=== PATIENT | male | born 1955 | race Caucasian/White ===

== ENCOUNTER → 2016-07-28 | Outpatient (CLI) | payer MEDICARE ==
[~2016-07-28] MED LIST: /ESCI10TA OR; ADVI200C PO; ALBU83IN NEB; ALBUTEROL INH; ALPR2TAB3 OR; AMLO5TAB OR; AMLO5TAB2 PO; ATEN50TA2 PO; ATROVENT0.02% INH; BENA20TA PO; CLAR5CHW PO; IBUP200C PO; IBUP600T OR; IPRASOL4 IN; KLOR10TA OR; LISI10TA4 OR; OMEP20TA7 OR; PROA1AER IN; PROAIR INH; PULM0.5S IN; SENN1TAB4 PO; SYMB16INH INH; TRAM50TA2 OR; TRAM50TA2 PO; VICO5TAB OR; VITA200016 PO; [UNRECOGNIZED DRUG - CODE] OR; [UNRECOGNIZED DRUG - CODE] PO; alleve PO
--- NOTE | 2016-08-13 01:33 | ECWPNPC ---
PATIENT NAME: CARLEEN JARRETT : 1955 GENDER: MALE VISIT DATE: 07/28/2016 DISCHARGE DATE: 07/28/16 1229 VISIT LOCKED DATE TIME: PHYSICIAN: TUSHAR AGUILERA RESOURCE: TUSHAR AGUILERA REASON FOR APPOINTMENT 1. HIP, POST PROCEDURE HISTORY OF PRESENT ILLNESS HISTORY OF PRESENT ILLNESS: PAIN THE PATIENT DESCRIBES THE PAIN... FALL RISK SCREENING: SCREENING :NO FALLS IN THE PAST YEAR TODAY'S VISIT: NOTES: HAD LEFT HIP INJECTION 07/02/16 WITH EXCELLANT RESULTS. PAIN DECREASED FROM6-8/10 TO 0/10 AND THIS LASTED FOR OVER 2 WEEKS. IS ASKING FOR REPEAT INJECTION.RATES PAIN LEVEL TODAY 7-8/10. PAIN IS CENTERED IN LOW BACK AND LEFT SACRUM TO HIP. . CURRENT MEDICATIONS TAKING TYLENOL EXTRA STRENGTH 500 MG TABLET 2 TABLETS NEEDED ORALLY EVERY 4- 6 HRS NEEDED TAKING TRAMADOL HCL 50 MG TABLET 1-2 ORALLY EVERY 8 HRSMDD 4, NOTES: 04-01-16799 TAKING TERBUTALINE SULFATE 5 MG TABLET 1 TABLET ORALLY EVERY 6 HRS, NOTES: 04-01-16799 TAKING OXYGEN KIT 2.0 LITERS ORALLY DAILY, NOTES: NONE TAKING IPRATROPIUM BROMIDE 0.02 % SOLUTION ONE APPLICATION INHALATION VIA NEBULIZER, NOTES: 11/02/15 0800 TAKING CANE MISCELLANEOUS _ DAILY, NOTES: HAS WITH HIM TAKING WALKER GLIDE WHEELS MISCELLANEOUS _ DAILY, NOTES: NONE TAKING SYMBICORT 160-4.5 MCG/ACT AEROSOL 2 PUFFS INHALATION TWICE A DAY, NOTES: 04-01-16799 TAKING PROAIR HFA 108 (90 BASE) MCG/ACT AEROSOL SOLUTION 2 PUFFS NEEDED INHALATION QID PRN, NOTES: 04-01-16799 TAKING FLOMAX 0.4 MG CAPSULE 1 CAPSULE 30 MINUTES AFTER THE SAME MEAL EACH DAY ORALLY ONCE A DAY, NOTES: NONE TAKING OMEPRAZOLE 40 MG CAPSULE DELAYED RELEASE 1 CAPSULE ORALLY TWICE DAILY, NOTES: 04-01-16799 TAKING SENNA-LAX 8.6 MG TABLET 1 TABLET ORALLY ONCE A DAY NEEDED, NOTES: 04-01-16799 TAKING BENAZEPRIL HCL 20 MG TABLET 1 TABLET ORALLY ONCE A DAY, NOTES: 04-01-16799 TAKING AMLODIPINE BESYLATE 5 MG TABLET 1 TABLET ORALLY ONCE A DAY, NOTES: 9-13-16 0800 TAKING RANITIDINE HCL 300 MG CAPSULE 1 CAPSULE AT BEDTIME ORALLY TWICE A DAY, NOTES: 04-01-16 2100 TAKING VITAMIN D 1000 UNIT TABLET 1 TABLET ORALLY ONCE A DAY TAKING XANAX 1 MG TABLET 1 TABLET ORALLY TWICE A DAY NOT-TAKING OXYCODONE HCL 5 MG TABLET 1 TABLET ORALLY EVERY 8 HRS MEDICATION LIST REVIEWED AND RECONCILED WITH THE PATIENT PAST MEDICAL HISTORY GERD COPD-04/14/2014 FEV1 2.3L (66%)/RATIO 78%//EMPHYSEMA RML SCARRING BY 01/2014 CT CHEST 06/23 TRAUMATIC PNEUMOTHORAX HYPERTENSION-07/2009 NORMAL DOBUTAMINE NUCLEAR STRESS, LVEF 67%-SLICK CHRONIC VENTRAL INCISIONAL HERNIA WITH DEHISCENCE SINCE 03/2013 CHRONIC HEPATITIS C BLOOD TRANSFUSION, FAILED ? IFN RX IN 2002 IN [place] GENOTYPE 1A STAGE F1-2 L HIP OA OSTEOPOROSIS ANXIETY DISORDER-05/2004 NORMAL MRI BRAIN C IAC PROTOCOL H/O ? SBO 03/2013 S/P SURGICAL REPAIR BY DR. ZAIRE BARTH WITH SECONDARY CHRONIC VENTRAL HERNIA NICOTINE ADDICTION-10 CIGS DAILY FROM 36 YO (STARTED P ) HISTORY CHRONIC STEROID USE FOR ASTHMA WEANED OFF 2002-PATIENT ON PREDNISONE 50 TID X 25-30 YEARS POUND SECONDARY WEIGHT LOSS LUMBAR DJD S/P EPIDURALS 12/2010 [facility] L4 COMPRESSION BY 11/2013 CT CHEST LLL LUNG NODULES FIRST SEEN 05/25/2013 CT CHEST HISTORY OF ALCOHOL ABUSE HEPATITIS C LIVER ULTRASOUND SHOWS MIDLINE ABNORMALITY WITH HYPOECHOIC AREA OF FIBROSIS AND LIVER SHOWS NO MASSES ALLERGIES DUST: RASH: ALLERGY SOCIAL HISTORY GENERAL: TOBACCO USE ARE YOU A:NONSMOKER LEARNING BARRIERS / SPECIAL NEEDS ORIENTED TO PLAN OF CARE: PATIENT, PAIN MANAGEMENT PATIENT, ORIENTED TO PLAN OF CARE: PATIENT, PAIN MANAGEMENT PATIENT. NEW PATIENT PAIN DIARY TODAY'S VISITNOTES FROM 0-10, WHAT LEVEL IS YOUR PAIN TODAY?0 PAIN CLINIC PFS, CLERGY, PUBLIC HEALTH REFERRALS PFS REFERRAL NEEDED?NO CLERGY REFERRAL NEEDED?NO PUBLIC HEALTH REFERRAL NEEDED?NO WAS THE PROVIDER NOTIFIED OF ANY PERTINENT INFO?NO PFS REFERRAL NEEDED?NO CLERGY REFERRAL NEEDED?NO PUBLIC HEALTH REFERRAL NEEDED?NO WAS THE PROVIDER NOTIFIED OF ANY PERTINENT INFO?NO REVIEW OF SYSTEMS CONSTITUTIONAL: ANY CHANGE IN YOUR MEDICAL CONDITION? NO . CHILLS NO . FEVER NO . INFECTION: DO YOU HAVE NEW INFECTIONS? NO . DO YOU HAVE HISTORY OF MRSA? NO . MUSCULOSKELETAL: ANY NEW PATTERNS OF PAIN OR NUMBNESS? NO . GASTROENTEROLOGY: GENERAL STILL DEALING WITH ABDOMENAL WALL HERNIAS. NO CONSTIPATION/DIARRHEA, NO HEME . ANY NEW CHANGE IN BOWEL CONTROL? NO . GENITOURINARY: ANY NEW CHANGE IN BLADDER CONTROL? NO . IS THERE A CHANCE YOU COULD BE ? NO . HEMATOLOGY/LYMPH: DO YOU TAKE ANY BLOOD THINNERS? (FOR EXAMPLE- COUMADIN, PLAVIX, AGGRENOX, PLATEL, PRADAXA, OR XARELTO) NO . WHEN WAS YOUR LAST DOSE? DATE: TIME: . NEUROLOGY: HAVE YOU FALLEN IN THE PAST 6 MONTHS? NO . ANY NEW EXTREMITY NUMBNESS OR WEAKNESS? NO . CARDIOLOGY: DO YOU HAVE A PACEMAKER OR DEFIBRILLATOR? NO . RESPIRATORY: HAVE YOU BEEN SICK IN THE PAST WEEK? YES PNEUMONIA 2 WKS AGO-TX WITH ANTIBIOTICS . FEVER NO . FLU LIKE SYMPTOMS? NO . COUGH NO . INTEGUMENTARY: DO YOU HAVE ANY RASHES OR OPEN SORES? NO . ALLERGIC/IMMUNO: ARE YOU ALLERGIC TO SHELLFISH OR IV DYE? NO . ANY NEW ALLERGIES? NO . PSYCHIATRIC: DO YOU HAVE THOUGHTS OF HURTING YOURSELF OR SOMEONE ELSE? NO . ARE YOU ABUSED, NEGLECTED, OR IN AN UNSAFE ENVIRONMENT? NO . ENDOCRINOLOGY: ARE YOU DIABETIC? NO . OTHER: DO YOU NEED ANY PRESCRIPTIONS? YES TRAMADOL . IF YES, PLEASE LIST: ____ . ANY NEW PROBLEMS WITH YOUR MEDICATIONS? NO . WHEN DID YOU LAST EAT? ____ . WHEN DID YOU LAST DRINK? ____ . WHAT DID YOU LAST DRINK? ____ . NAME OF PERSON DRIVING YOU HOME? ____ . DO YOU HAVE ANY OTHER QUESTIONS OR CONCERNS NO . REVIEWED BY: PROVIDER: TUSHAR GARCIA . VITAL SIGNS WT 186.8 LBS, HT 69 IN, BMI 27.58 INDEX, BP 149/88 MM HG, HR 99 /MIN, RR 16 /MIN, TEMP 97.2 F, OXYGEN SAT % 96, NA INITIALS TL 1103, REVIEWED BY: MLF. EXAMINATION GENERAL EXAMINATION: PSYCHALERT , ORIENTED X 3 , APPROPRIATE MOOD AND AFFECT . LUNGS:CLEAR TO AUSCULTATION BILATERALLY. HEART:HEART RATE REGULAR. MUSCULOSKELETAL:TENDER OVER LEFT TROCANTER. SLOW TO RISE. PAIN WITH HIP FLEXION AT TROCANTER BUT NOT THE GROIN. MILD TENDERNESS OVER LUMBAR SPINOUS PROCESSES AND ACROSS THE SACRUM. FEW TRIGGER POINTS AND TIGHT FIEROUS BANDS NOTED OVER THE SACRUM. GAIT SLOW, ANTALGIC.. ASSESSMENTS LEFT HIP PAIN - M25.552 (PRIMARY) TREATMENT LEFT HIP PAIN REFILL TRAMADOL HCL TABLET, 50 MG, 1-2, ORALLY, EVERY 8 HRSMDD 4, 30 DAY(S), 120, REFILLS 0 ARTHROCENTESIS INJECTION LARGE JOINT ([id number])TUSHAR AGUILERA 07/28/2016 12:08:09 PM > LEFT HIP BURSA NOTES: CONTINUE CURRENT MEDS, FALLS CARE PLAN: 1. RECOMMEND REMOVING ALL THROW RUGS. 2. RECOMMEND NIGHT LIGHTS 3. RECOMMEND WEARING RUBBER SOLED SHOES AND TO NOT GO BAREFOOT. 4.. ADVISED TO CHANGE POSITION SLOWLY FROM SUPINE TO STANDING TO AVOID DIZZINESS. 5. ADVISED TO USE ASSISTIVE DEVICE SUCH CANE OR WALKER NEEDED., #128 - SCREENING BMI AND F/U PLAN IN : BMI ABOVE NORMAL TODAY. DISCUSSED WITH PATIENT NUTRITIONAL FOOD CHOICES TO ASSIST WITH WEIGHT LOSS. RECCOMMENDED REDUCING SALT, SUGAR, SODA INTAKE. RECOMMEND INCREASE ACTIVITY TO INCLUDE WALKING ON A REGULAR BASIS. PREVENTIVE MEDICINE PAIN CLINIC TEACHING: PROCEDURE TEACHING HIP INJECTION PROCEDURE REVIEWED WITH PT. PT VERBALIZES UNDERSTANDING.. PROCEDURE CODES FA211 ESTABILISHED PATIENT [facility] FACILITY CHARGE G8783 BP SCR PRFRM RCMDD DEFIND SCR INTVL G8730 PAIN ASSESS POS TOOL F/U PLAN DOC 3016F PT SCRND UNHLTHY [place] USE 1124F ACP DISCUSS-NO DSCNMKR DOCD 1036F TOBACCO NON-USER 0518F FALL PLAN OF CARE DOCD G8427 DOC MEDS VERIFIED W/PT OR RE G8417 BMI >=30 CALCUATE W/FOLLOWUP 3288F FALL RISK ASSESSMENT DOCD FOLLOW UP WITH ALONZO AFTER INJECTION (REASON: CHECK AUTH FOR LEFT HIP BURSA INJECTION) ELECTRONICALLY SIGNED BY TORY VILCHIS ON 08/11/2016 AT 10:31 AM EST DISCLAIMER : THIS IS A VISIT SUMMARY EXTRACTED FROM THE [employer] CHART. IT IS NOT A COPY OF THE [employer] PROGRESS NOTE. MTDD
== END ==
LOC: M PAIN 10:40
PROVIDERS: ATTEND Nurse Practitioner Family
DX: Z09 Encounter for follow-up examination after completed treatment for conditions other than malignant neoplasm (principal); M16.12 Unilateral primary osteoarthritis, left hip; M51.36 Other intervertebral disc degeneration, lumbar region; M51.86 Other intervertebral disc disorders, lumbar region; B18.2 Chronic viral hepatitis C; K21.9 Gastro-esophageal reflux disease without esophagitis; J44.9 Chronic obstructive pulmonary disease, unspecified; I10 Essential (primary) hypertension; K43.2 Incisional hernia without obstruction or gangrene; K76.89 Other specified diseases of liver; F41.9 Anxiety disorder, unspecified; F17.200 Nicotine dependence, unspecified, uncomplicated; J30.89 Other allergic rhinitis; Z79.899 Other long term (current) drug therapy; Z92.241 Personal history of systemic steroid therapy; Z87.09 Personal history of other diseases of the respiratory system; Z85.59 Personal history of malignant neoplasm of other urinary tract organ

== ENCOUNTER → 2016-08-08 | Outpatient (CLI) | payer MEDICARE ==
[~2016-08-08] MED LIST changes: +BUPIVACAINE HCL 0.25% 30 ML VIAL As Ordered ONE; +ISOVUE-M 300 61% 15ML VIAL (Q9967) As Ordered ONE; +LIDOCAINE 1% SDV INJ 30 ML VIAL As Ordered ONE; +TRIAMCINOLONE ACETONIDE SUSP 40 MG/ML VIAL (J3301) As Ordered ONE; +diazePAM 5 MG TAB As Ordered ONE; +oxyCODONE 5MG TAB As Ordered ONE
--- NOTE | 2016-08-08 16:22 | REP ---
Left hip: Limited study two views: History: Left hip injection for pain. 11 seconds of fluoroscopy time is reported. Findings: A sequence of two fluoroscopically obtained intraprocedural spot radiographs of the left hip document needle position for hip injection procedure. Signed by Srinivas Wilson MD 08/08/2016 05:04 P
--- NOTE | 2016-08-13 23:45 | ECWPNPC ---
PATIENT NAME: CARLEEN JARRETT : 1955 GENDER: MALE VISIT DATE: 08/08/2016 DISCHARGE DATE: 08/08/16 1253 VISIT LOCKED DATE TIME: PHYSICIAN: JACE BROWN RESOURCE: JACE BROWN REASON FOR APPOINTMENT 1. LEFT HIP BURSA INJECTION HISTORY OF PRESENT ILLNESS HISTORY OF PRESENT ILLNESS: PAIN THE PATIENT DESCRIBES THE PAIN... FALL RISK SCREENING: SCREENING :NO FALLS IN THE PAST YEAR CURRENT MEDICATIONS TAKING TYLENOL EXTRA STRENGTH 500 MG TABLET 2 TABLETS NEEDED ORALLY EVERY 4- 6 HRS NEEDED, NOTES: 08/08/16 050 TAKING TERBUTALINE SULFATE 5 MG TABLET 1 TABLET ORALLY EVERY 6 HRS, NOTES: 08/08/16499 TAKING OXYGEN KIT 2.0 LITERS ORALLY DAILY, NOTES: NONE TAKING IPRATROPIUM BROMIDE 0.02 % SOLUTION ONE APPLICATION INHALATION VIA NEBULIZER, NOTES: 08/08/16499 TAKING CANE MISCELLANEOUS _ DAILY, NOTES: HAS WITH HIM TAKING WALKER GLIDE WHEELS MISCELLANEOUS _ DAILY, NOTES: NONE TAKING SYMBICORT 160-4.5 MCG/ACT AEROSOL 2 PUFFS INHALATION TWICE A DAY, NOTES: 08/08/16499 TAKING PROAIR HFA 108 (90 BASE) MCG/ACT AEROSOL SOLUTION 2 PUFFS NEEDED INHALATION QID PRN, NOTES: 08/08/16499 TAKING FLOMAX 0.4 MG CAPSULE 1 CAPSULE 30 MINUTES AFTER THE SAME MEAL EACH DAY ORALLY ONCE A DAY, NOTES: 08/08/16499 TAKING OMEPRAZOLE 40 MG CAPSULE DELAYED RELEASE 1 CAPSULE ORALLY TWICE DAILY, NOTES: 08/08/16499 TAKING SENNA-LAX 8.6 MG TABLET 1 TABLET ORALLY ONCE A DAY NEEDED, NOTES: 08/08/16499 TAKING BENAZEPRIL HCL 20 MG TABLET 1 TABLET ORALLY ONCE A DAY, NOTES: 08/08/16499 TAKING AMLODIPINE BESYLATE 5 MG TABLET 1 TABLET ORALLY ONCE A DAY, NOTES: 08/08/16499 TAKING RANITIDINE HCL 300 MG CAPSULE 1 CAPSULE AT BEDTIME ORALLY TWICE A DAY, NOTES: 499 TAKING VITAMIN D 1000 UNIT TABLET 1 TABLET ORALLY ONCE A DAY, NOTES: 08/08/16499 TAKING TRAMADOL HCL 50 MG TABLET 1-2 ORALLY EVERY 8 HRSMDD 4, NOTES: 08/08/16 0500 NOT-TAKING XANAX 1 MG TABLET 1 TABLET ORALLY TWICE A DAY NOT-TAKING OXYCODONE HCL 5 MG TABLET 1 TABLET ORALLY EVERY 8 HRS MEDICATION LIST REVIEWED AND RECONCILED WITH THE PATIENT PAST MEDICAL HISTORY GERD COPD-04/14/2014 FEV1 2.3L (66%)/RATIO 78%//EMPHYSEMA RML SCARRING BY 01/2014 CT CHEST 06/23 TRAUMATIC PNEUMOTHORAX HYPERTENSION-07/2009 NORMAL DOBUTAMINE NUCLEAR STRESS, LVEF 67%-SLICK CHRONIC VENTRAL INCISIONAL HERNIA WITH DEHISCENCE SINCE 03/2013 CHRONIC HEPATITIS C BLOOD TRANSFUSION, FAILED ? IFN RX IN 2002 IN [place] GENOTYPE 1A STAGE F1-2 L HIP OA OSTEOPOROSIS ANXIETY DISORDER-05/2004 NORMAL MRI BRAIN C IAC PROTOCOL H/O ? SBO 03/2013 S/P SURGICAL REPAIR BY DR. ZAIRE BARTH WITH SECONDARY CHRONIC VENTRAL HERNIA NICOTINE ADDICTION-10 CIGS DAILY FROM 36 YO (STARTED P ) HISTORY CHRONIC STEROID USE FOR ASTHMA WEANED OFF 2002-PATIENT ON PREDNISONE 50 TID X 25-30 YEARS POUND SECONDARY WEIGHT LOSS LUMBAR DJD S/P EPIDURALS 12/2010 [facility] PC L4 COMPRESSION BY 11/2013 CT CHEST LLL LUNG NODULES FIRST SEEN 05/25/2013 CT CHEST HISTORY OF ALCOHOL ABUSE HEPATITIS C LIVER ULTRASOUND SHOWS MIDLINE ABNORMALITY WITH HYPOECHOIC AREA OF FIBROSIS AND LIVER SHOWS NO MASSES ALLERGIES DUST: RASH: ALLERGY SOCIAL HISTORY GENERAL: TOBACCO USE ARE YOU A:NONSMOKER LEARNING BARRIERS / SPECIAL NEEDS ORIENTED TO PLAN OF CARE: PATIENT, PAIN MANAGEMENT PATIENT, ORIENTED TO PLAN OF CARE: PATIENT, PAIN MANAGEMENT PATIENT. NEW PATIENT PAIN DIARY TODAY'S VISITNOTES FROM 0-10, WHAT LEVEL IS YOUR PAIN TODAY?0 PAIN CLINIC PFS, CLERGY, PUBLIC HEALTH REFERRALS PFS REFERRAL NEEDED?NO CLERGY REFERRAL NEEDED?NO PUBLIC HEALTH REFERRAL NEEDED?NO WAS THE PROVIDER NOTIFIED OF ANY PERTINENT INFO?NO PFS REFERRAL NEEDED?NO CLERGY REFERRAL NEEDED?NO PUBLIC HEALTH REFERRAL NEEDED?NO WAS THE PROVIDER NOTIFIED OF ANY PERTINENT INFO?NO REVIEW OF SYSTEMS CONSTITUTIONAL: ANY CHANGE IN YOUR MEDICAL CONDITION? NO . CHILLS NO . FEVER NO . INFECTION: DO YOU HAVE NEW INFECTIONS? NO . DO YOU HAVE HISTORY OF MRSA? NO . MUSCULOSKELETAL: ANY NEW PATTERNS OF PAIN OR NUMBNESS? NO . GASTROENTEROLOGY: ANY NEW CHANGE IN BOWEL CONTROL? NO . GENITOURINARY: ANY NEW CHANGE IN BLADDER CONTROL? NO . IS THERE A CHANCE YOU COULD BE ? NO . HEMATOLOGY/LYMPH: DO YOU TAKE ANY BLOOD THINNERS? (FOR EXAMPLE- COUMADIN, PLAVIX, AGGRENOX, PLATEL, PRADAXA, OR XARELTO) NO . WHEN WAS YOUR LAST DOSE? DATE: TIME: . NEUROLOGY: HAVE YOU FALLEN IN THE PAST 6 MONTHS? NO . ANY NEW EXTREMITY NUMBNESS OR WEAKNESS? NO . CARDIOLOGY: DO YOU HAVE A PACEMAKER OR DEFIBRILLATOR? NO . RESPIRATORY: HAVE YOU BEEN SICK IN THE PAST WEEK? NO . FEVER NO . FLU LIKE SYMPTOMS? NO . COUGH NO . INTEGUMENTARY: DO YOU HAVE ANY RASHES OR OPEN SORES? NO . ALLERGIC/IMMUNO: ARE YOU ALLERGIC TO SHELLFISH OR IV DYE? NO . ANY NEW ALLERGIES? NO . PSYCHIATRIC: DO YOU HAVE THOUGHTS OF HURTING YOURSELF OR SOMEONE ELSE? NO . ARE YOU ABUSED, NEGLECTED, OR IN AN UNSAFE ENVIRONMENT? NO . ENDOCRINOLOGY: ARE YOU DIABETIC? NO . OTHER: DO YOU NEED ANY PRESCRIPTIONS? NO . IF YES, PLEASE LIST: ____ . ANY NEW PROBLEMS WITH YOUR MEDICATIONS? NO . WHEN DID YOU LAST EAT? ____08/07/16 2400 . WHEN DID YOU LAST DRINK? ____08/08/16 0930 . WHAT DID YOU LAST DRINK? ____WATER . NAME OF PERSON DRIVING YOU HOME? ____[employer] . DO YOU HAVE ANY OTHER QUESTIONS OR CONCERNS NO . REVIEWED BY: PROVIDER: . VITAL SIGNS WT 186.8 LBS, HT 69 IN, BMI 27.58 INDEX, BP 115/74 MM HG, HR 123 /MIN, RR 16 /MIN, TEMP 96.1 F, OXYGEN SAT % 91%, NA INITIALS SC 10:47, REVIEWED BY: LAS. JARA TROCHANTERIC BURSITIS, LEFT HIP - M70.62 (PRIMARY) TREATMENT TROCHANTERIC BURSITIS, LEFT HIP NOTES: PREPROCEDURE DIAGNOSIS: BURSITIS AT THE LEFT GREATER TROCHANTER OF THE FEMUR. POSTPROCEDURE DIAGNOSIS: BURSITIS AT THE LEFT GREATER TROCHANTER OF THE FEMUR. PROCEDURE: INJECTION AT THE BURSA OF THE OF THE LEFT GREATER TROCHANTER OF THE FEMUR UNDER FLUOROSCOPIC GUIDANCE. SURGEON: DR. JACE BROWN CIVIL PREPAREDNESS COORDINATOR: NONEANESTHESIA: LOCAL. PREOPERATIVE NOTE: THE PATIENT HAS A HISTORY OF LEFT HIP PAIN. I EVALUATED THE PATIENT AND REVIEWED THE CHART. WE BOTH AGREE ON INJECTING OVER THE BURSA OF THE LEFT GREATER TROCHANTER OF THE FEMUR. I WENT THROUGH THE RISKS, ALTERNATIVES, AND BENEFITS ASSOCIATED WITH THIS PROCEDURE. THE PATIENT WOULD LIKE TO PROCEED AND GIVE CONSENT TO PERFORMED THE PROCEDURE. THE PATIENT DENIES UNEXPLAINABLE WEIGHT LOSS, FEVERS, CHILLS, OR CHANGES IN HIS URINARY OR BOWEL CONTROL. DESCRIPTION OF PROCEDURE: AFTER CONSENT WAS TAKEN, THE PATIENT WAS BROUGHT TO THE PROCEDURE ROOM AND PLACED IN THE LEFT LATERAL DECUBITUS POSITION. THE LEFT HIP AREA WAS CLEANED WITH CHLORAPREP SOLUTION AND DRAPED ASEPTICALLY. THE PROCEDURE WAS DONE UNDER STERILE CONDITIONS. I CHECKED LATERALITY WITH THE PATIENT AND THE STAFF IN THE PROCEDURE ROOM AT THE MOMENT OF THE TIME OUT. UNDER FLUOROSCOPIC GUIDANCE, TARGET WAS SELECTED AT THE LEFT GREATER TROCHANTER OF THE FEMUR. LIDOCAINE WAS USED TO NUMB THE SKIN AND THE SUBCUTANEOUS TISSUE BELOW IT. SPINAL NEEDLE, 22-GAUGE WAS ADVANCED UNDER FLUOROSCOPIC GUIDANCE AND FOLLOWING PATIENT FEEDBACK UNTIL THE TARGET WAS TOUCHED. POSITION OF THE NEEDLE WAS VERIFIED WITH AP AND LATERAL VIEWS. AFTER PROPER POSITION OF THE NEEDLE WAS ACHIEVED, ISOVUE M DYE, 30%, 0.25 ML WAS INJECTED SHOWING ADEQUATE SPREAD OF THE DYE. THEN A SOLUTION OF 20 ML OF BUPIVACAINE 0.25% AND KENALOG 40 MG WAS INJECTED. THERE WAS NO EVIDENCE OF BLOOD, PARESTHESIA, OR CEREBROSPINAL FLUID. THE PATIENT WAS SENT TO THE RECOVERY ROOM. THE PATIENT WAS MOVING THE EXTREMITIES AND DOING WELL. THERE WERE NO COMPLICATIONS DURING THE PROCEDURE. POSTOPERATIVE NOTE: I DISCUSSED ALTERNATIVES WITH THE PATIENT. WE WILL SEE THE PATIENT BACK IN SEVERAL WEEKS FOR REEVALUATION OF THE CASE. I AM LOOKING FOR LONG-LASTING PAIN RELIEF WITH THIS INTERVENTION. FLUOROSCOPIC TIME WAS 4 SECONDS. FURTHER RECOMMENDATIONS WILL BE DONE DEPENDING ON HOW THE PATIENT DOES. THERE WERE NO COMPLICATIONS.I, ABHISHEK YANG, DOCUMENTED THE ABOVE INFORMATION ACTING A SCRIBE FOR DR. BROWN. I, DR. BROWN, HAVE REVIEWED THE ABOVE DOCUMENT, SCRIBED BY ABHISHEK YANG, AND I VERIFY THAT IT IS ACCURATE. DIAGNOSTIC IMAGING [facility] FLUORO GUIDANCE (PAIN)[id number] PROCEDURE CODES 10890 DRAIN/INJ JOINT/BUR[place] [address] NEEDLE LOCALIZATION BY XRAY 6045F RADXPS IN END [id number] PXD FOLLOW UP 3 WEEKS ELECTRONICALLY SIGNED BY JACE BROWN MD ON 08/13/2016 AT 10:08 PM EST DISCLAIMER : THIS IS A VISIT SUMMARY EXTRACTED FROM THE [employer] CHART. IT IS NOT A COPY OF THE [employer] PROGRESS NOTE. ALEXIA
== END ==
LOC: M PAIN 10:50
PROVIDERS: ATTEND Anesthesiology
DX: M70.62 Trochanteric bursitis, left hip (principal); B18.2 Chronic viral hepatitis C; K21.9 Gastro-esophageal reflux disease without esophagitis; I10 Essential (primary) hypertension; M16.12 Unilateral primary osteoarthritis, left hip; M85.80 Other specified disorders of bone density and structure, unspecified site; J44.9 Chronic obstructive pulmonary disease, unspecified; K43.2 Incisional hernia without obstruction or gangrene; F41.9 Anxiety disorder, unspecified; M51.36 Other intervertebral disc degeneration, lumbar region; J30.89 Other allergic rhinitis; Z99.81 Dependence on supplemental oxygen; Z79.891 Long term (current) use of opiate analgesic; Z79.899 Other long term (current) drug therapy; Z87.09 Personal history of other diseases of the respiratory system; Z87.891 Personal history of nicotine dependence; Z92.241 Personal history of systemic steroid therapy; Z85.59 Personal history of malignant neoplasm of other urinary tract organ
CPT/HCPCS: 20610; 77002; J3301; Q9967

== ENCOUNTER → 2016-09-18 | Outpatient (CLI) | payer MEDICARE ==
[~2016-09-18] MED LIST changes: -BUPIVACAINE HCL 0.25% 30 ML VIAL As Ordered ONE; -ISOVUE-M 300 61% 15ML VIAL (Q9967) As Ordered ONE; -LIDOCAINE 1% SDV INJ 30 ML VIAL As Ordered ONE; -TRIAMCINOLONE ACETONIDE SUSP 40 MG/ML VIAL (J3301) As Ordered ONE; -diazePAM 5 MG TAB As Ordered ONE; -oxyCODONE 5MG TAB As Ordered ONE
--- NOTE | 2016-09-19 23:54 | ECWPNPC ---
PATIENT NAME: CARLEEN JARRETT : 1955 GENDER: MALE VISIT DATE: 09/18/2016 DISCHARGE DATE: 09/18/16 1457 VISIT LOCKED DATE TIME: PHYSICIAN: TRACEE MAHAN RESOURCE: TRACEE MAHAN REASON FOR APPOINTMENT 1. BACK HISTORY OF PRESENT ILLNESS HISTORY OF PRESENT ILLNESS: HERE FOR F/U AND MANAGEMENT OF CHRONIC LEFT HIP PAIN.HAD LEFT GREATER TROCHANTERIC BURSAL INJECTION ON 08-08-16.REPORTS SIGNIFICANT IMPROVEMENT IN PAIN OVER LEFT HIP.HAS RIGHT SHOULDER AND LOW BACK PAIN.WORSE AREA OF PAIN RIGHT SHOULDER.CURRENTLY USING TRAMADOL 50MG MDD4.STATES HE TAKES 2 IN AM AND 2 IN PM.STATES HE HAS BEEN USING ALOT OF ACETAMINOPHEN BECAUSE HE IS IN PAIN.PATIENT HAS BEEN OVERUSING ALBUTEROL AND IS VERY HYPER TODAY.VERY HARD FOR HIM TO FOCUS AND HAS TO BE REDIRECTED FREQUENTLY DURING VISIT.RATING PAIN VAS 7/10. FALL RISK SCREENING: SCREENING :NO FALLS IN THE PAST YEAR CURRENT MEDICATIONS TAKING TYLENOL EXTRA STRENGTH 500 MG TABLET 2 TABLETS NEEDED ORALLY EVERY 4- 6 HRS NEEDED, NOTES: 08/08/16 050 TAKING OXYGEN KIT 2.0 LITERS ORALLY DAILY, NOTES: NONE TAKING IPRATROPIUM BROMIDE 0.02 % SOLUTION ONE APPLICATION INHALATION VIA NEBULIZER, NOTES: 08/08/16499 TAKING CANE MISCELLANEOUS _ DAILY, NOTES: HAS WITH HIM TAKING WALKER GLIDE WHEELS MISCELLANEOUS _ DAILY, NOTES: NONE TAKING SYMBICORT 160-4.5 MCG/ACT AEROSOL 2 PUFFS INHALATION TWICE A DAY, NOTES: 08/08/16 050 TAKING PROAIR HFA 108 (90 BASE) MCG/ACT AEROSOL SOLUTION 2 PUFFS NEEDED INHALATION QID PRN, NOTES: 08/08/16499 TAKING FLOMAX 0.4 MG CAPSULE 1 CAPSULE 30 MINUTES AFTER THE SAME MEAL EACH DAY ORALLY ONCE A DAY, NOTES: 08/08/16499 TAKING OMEPRAZOLE 40 MG CAPSULE DELAYED RELEASE 1 CAPSULE ORALLY TWICE DAILY, NOTES: 08/08/16499 TAKING SENNA-LAX 8.6 MG TABLET 1 TABLET ORALLY ONCE A DAY NEEDED, NOTES: 08/08/16499 TAKING BENAZEPRIL HCL 20 MG TABLET 1 TABLET ORALLY ONCE A DAY, NOTES: 08/08/16499 TAKING AMLODIPINE BESYLATE 5 MG TABLET 1 TABLET ORALLY ONCE A DAY, NOTES: 08/08/16 0500 TAKING RANITIDINE HCL 300 MG CAPSULE 1 CAPSULE AT BEDTIME ORALLY TWICE A DAY, NOTES: 050 TAKING VITAMIN D 1000 UNIT TABLET 1 TABLET ORALLY ONCE A DAY, NOTES: 08/08/16 0500 TAKING TRAMADOL HCL 50 MG TABLET 1-2 ORALLY EVERY 8 HRSMDD 4, NOTES: 08/08/16 050 TAKING BENADRYL 25 MG CAPSULE ORALLY NEEDED NOT-TAKING TERBUTALINE SULFATE 5 MG TABLET 1 TABLET ORALLY EVERY 6 HRS, NOTES: 08/08/16 0500 NOT-TAKING XANAX 1 MG TABLET 1 TABLET ORALLY TWICE A DAY NOT-TAKING OXYCODONE HCL 5 MG TABLET 1 TABLET ORALLY EVERY 8 HRS MEDICATION LIST REVIEWED AND RECONCILED WITH THE PATIENT PAST MEDICAL HISTORY GERD COPD-04/14/2014 FEV1 2.3L (66%)/RATIO 78%//EMPHYSEMA RML SCARRING BY 01/2014 CT CHEST 06/23 TRAUMATIC PNEUMOTHORAX HYPERTENSION-07/2009 NORMAL DOBUTAMINE NUCLEAR STRESS, LVEF 67%-SLICK CHRONIC VENTRAL INCISIONAL HERNIA WITH DEHISCENCE SINCE 03/2013 CHRONIC HEPATITIS C BLOOD TRANSFUSION, FAILED ? IFN RX IN 2002 IN [place] GENOTYPE 1A STAGE F1-2 L HIP OA OSTEOPOROSIS ANXIETY DISORDER-05/2004 NORMAL MRI BRAIN C IAC PROTOCOL H/O ? SBO 03/2013 S/P SURGICAL REPAIR BY DR. ZAIRE BARTH WITH SECONDARY CHRONIC VENTRAL HERNIA NICOTINE ADDICTION-10 CIGS DAILY FROM 36 YO (STARTED P ) HISTORY CHRONIC STEROID USE FOR ASTHMA WEANED OFF 2002-PATIENT ON PREDNISONE 50 TID X 25-30 YEARS POUND SECONDARY WEIGHT LOSS LUMBAR DJD S/P EPIDURALS 12/2010 [facility] PC L4 COMPRESSION BY 11/2013 CT CHEST LLL LUNG NODULES FIRST SEEN 05/25/2013 CT CHEST HISTORY OF ALCOHOL ABUSE HEPATITIS C LIVER ULTRASOUND SHOWS MIDLINE ABNORMALITY WITH HYPOECHOIC AREA OF FIBROSIS AND LIVER SHOWS NO MASSES ALLERGIES DUST: RASH: ALLERGY SOCIAL HISTORY GENERAL: TOBACCO USE ARE YOU A:NONSMOKER LEARNING BARRIERS / SPECIAL NEEDS ORIENTED TO PLAN OF CARE: PATIENT, PAIN MANAGEMENT PATIENT, ORIENTED TO PLAN OF CARE: PATIENT, PAIN MANAGEMENT PATIENT. NEW PATIENT PAIN DIARY TODAY'S VISITNOTES FROM 0-10, WHAT LEVEL IS YOUR PAIN TODAY?0 PAIN CLINIC PFS, CLERGY, PUBLIC HEALTH REFERRALS PFS REFERRAL NEEDED?NO CLERGY REFERRAL NEEDED?NO PUBLIC HEALTH REFERRAL NEEDED?NO WAS THE PROVIDER NOTIFIED OF ANY PERTINENT INFO?NO PFS REFERRAL NEEDED?NO CLERGY REFERRAL NEEDED?NO PUBLIC HEALTH REFERRAL NEEDED?NO WAS THE PROVIDER NOTIFIED OF ANY PERTINENT INFO?NO REVIEW OF SYSTEMS CONSTITUTIONAL: ANY CHANGE IN YOUR MEDICAL CONDITION? NO . CHILLS NO . FEVER NO . INFECTION: DO YOU HAVE NEW INFECTIONS? NO . DO YOU HAVE HISTORY OF MRSA? NO . MUSCULOSKELETAL: ANY NEW PATTERNS OF PAIN OR NUMBNESS? NO . GASTROENTEROLOGY: ANY NEW CHANGE IN BOWEL CONTROL? NO . GENITOURINARY: ANY NEW CHANGE IN BLADDER CONTROL? NO . IS THERE A CHANCE YOU COULD BE ? NO . HEMATOLOGY/LYMPH: DO YOU TAKE ANY BLOOD THINNERS? (FOR EXAMPLE- COUMADIN, PLAVIX, AGGRENOX, PLATEL, PRADAXA, OR XARELTO) NO . WHEN WAS YOUR LAST DOSE? DATE: TIME: . NEUROLOGY: HAVE YOU FALLEN IN THE PAST 6 MONTHS? NO . ANY NEW EXTREMITY NUMBNESS OR WEAKNESS? NO . CARDIOLOGY: DO YOU HAVE A PACEMAKER OR DEFIBRILLATOR? NO . RESPIRATORY: HAVE YOU BEEN SICK IN THE PAST WEEK? NO . FEVER NO . FLU LIKE SYMPTOMS? NO . COUGH NO . INTEGUMENTARY: DO YOU HAVE ANY RASHES OR OPEN SORES? NO . ALLERGIC/IMMUNO: ARE YOU ALLERGIC TO SHELLFISH OR IV DYE? NO . ANY NEW ALLERGIES? NO . PSYCHIATRIC: DO YOU HAVE THOUGHTS OF HURTING YOURSELF OR SOMEONE ELSE? NO . ARE YOU ABUSED, NEGLECTED, OR IN AN UNSAFE ENVIRONMENT? NO . ENDOCRINOLOGY: ARE YOU DIABETIC? NO . OTHER: DO YOU NEED ANY PRESCRIPTIONS? NO . IF YES, PLEASE LIST: ____ . ANY NEW PROBLEMS WITH YOUR MEDICATIONS? NO . WHEN DID YOU LAST EAT? ____ . WHEN DID YOU LAST DRINK? ____ . WHAT DID YOU LAST DRINK? ____ . NAME OF PERSON DRIVING YOU HOME? ____ . DO YOU HAVE ANY OTHER QUESTIONS OR CONCERNS NO . REVIEWED BY: PROVIDER: TRACEE GARCIA . VITAL SIGNS WT 188.2 LBS, HT 69 IN, BMI 27.79 INDEX, BP 180/86 R ARM, REPEAT BP 162/97 L ARM, HR 90 /MIN, RR 16 /MIN, TEMP 97.9 F, OXYGEN SAT % 96, NA INITIALS TL 1403, REVIEWED BY: MLF. EXAMINATION GENERAL EXAMINATION: LUNGS:LUNG SOUNDS ARE CLEAR. HEART:HEART RATE REGULAR. MUSCULOSKELETAL:*, MUSCLE STRENGTH TESTING 5/5 BILATERAL, TRIGGER POINTS:, ELICITED WITH PALPATION OVER CERVICAL SPINOUS PROCESSES AND ACROSS THE TRAPEZIUS MUSCLES BILATERALLY. RESTRICTION OF ROM IS NOTED. , SHOULDERS FULL RANGE OF MOTION. L/S SPINE-TENDERNESS.SPECIFIC LEFT HIP TENDERNESS W PALPATION.DIAGNOSTIC DATA- CT OF LEFT HIP WITHOUT CONTRAST 04-04-16-NO EVIDENCE OF FX,AVN,OR ACUTE DESTRUCTIVE BONE LESION.. ASSESSMENTS LEFT HIP PAIN - M25.552 (PRIMARY) CHRONIC PRESCRIPTION OPIATE USE - Z79.891 MYALGIA - M79.1 TREATMENT LEFT HIP PAIN START TRAMADOL HCL TABLET, 50 MG, 2, ORALLY, Q8H PRN MDD6, 30 DAY(S), 180, REFILLS 2 TRIGGER POINT 1-2 AREAS NOTES: TRIGGER POINT INJECTION MATERIAL WAS PRINTED. CHRONIC PRESCRIPTION OPIATE USE INCREASE TRAMADOL HCL TABLET, 50 MG, 1-2, ORALLY, EVERY 8 HRSMDD 4, 30 DAY(S), 180, REFILLS 2, NOTES: 08/08/16 0500 PROCEDURE CODES FA211 ESTABILISHED PATIENT [facility] FACILITY CHARGE G8730 PAIN ASSESS POS TOOL F/U PLAN DOC G8427 DOC MEDS VERIFIED W/PT OR RE DISPOSITION & COMMUNICATION FOLLOW UP 2WK POST (REASON: TPI RIGHT NECK) ELECTRONICALLY SIGNED BY RADHA GARCIA ON 09/19/2016 AT 04:07 PM EST DISCLAIMER : THIS IS A VISIT SUMMARY EXTRACTED FROM THE [employer] CHART. IT IS NOT A COPY OF THE [employer] PROGRESS NOTE. MTDD
== END ==
LOC: M PAIN 14:00
PROVIDERS: ATTEND Nurse Practitioner Family
DX: Z09 Encounter for follow-up examination after completed treatment for conditions other than malignant neoplasm (principal); G89.29 Other chronic pain; M25.552 Pain in left hip; Z79.891 Long term (current) use of opiate analgesic; M79.1 Myalgia; K21.9 Gastro-esophageal reflux disease without esophagitis; J44.9 Chronic obstructive pulmonary disease, unspecified; I10 Essential (primary) hypertension; K43.2 Incisional hernia without obstruction or gangrene; B18.2 Chronic viral hepatitis C; M16.12 Unilateral primary osteoarthritis, left hip; M85.80 Other specified disorders of bone density and structure, unspecified site; F41.9 Anxiety disorder, unspecified; J30.89 Other allergic rhinitis; Z79.899 Other long term (current) drug therapy; Z87.891 Personal history of nicotine dependence; Z86.59 Personal history of other mental and behavioral disorders

== ENCOUNTER → 2016-10-22 | Outpatient (CLI) | payer MEDICARE ==
[~2016-10-22] MED LIST changes: +BUPIVACAINE HCL 0.25% 10 ML VIAL As Ordered ONE; +BUPIVACAINE HCL 0.25% 30 ML VIAL As Ordered ONE; +TRIAMCINOLONE ACETONIDE SUSP 40 MG/ML VIAL (J3301) As Ordered ONE; +diazePAM 5 MG TAB As Ordered ONE; +oxyCODONE 5MG TAB As Ordered ONE
--- NOTE | 2016-10-26 23:58 | ECWPNPC ---
PATIENT NAME: CARLEEN JARRTET : 1955 GENDER: MALE VISIT DATE: 10/22/2016 DISCHARGE DATE: 10/22/16 160 VISIT LOCKED DATE TIME: PHYSICIAN: JACE BROWN RESOURCE: JACE BROWN REASON FOR APPOINTMENT 1. TPI NECK CURRENT MEDICATIONS TAKING TYLENOL EXTRA STRENGTH 500 MG TABLET 2 TABLETS NEEDED ORALLY EVERY 4- 6 HRS NEEDED, NOTES: 10/22/16@07 TAKING OXYGEN KIT 2.0 LITERS ORALLY DAILY, NOTES: NONE TAKING IPRATROPIUM BROMIDE 0.02 % SOLUTION ONE APPLICATION INHALATION VIA NEBULIZER, NOTES: TAKING CANE MISCELLANEOUS _ DAILY, NOTES: HAS WITH HIM TAKING WALKER GLIDE WHEELS MISCELLANEOUS _ DAILY, NOTES: NONE TAKING SYMBICORT 160-4.5 MCG/ACT AEROSOL 2 PUFFS INHALATION TWICE A DAY, NOTES: TAKING PROAIR HFA 108 (90 BASE) MCG/ACT AEROSOL SOLUTION 2 PUFFS NEEDED INHALATION QID PRN, NOTES: 10/22/16@1230 TAKING FLOMAX 0.4 MG CAPSULE 1 CAPSULE 30 MINUTES AFTER THE SAME MEAL EACH DAY ORALLY ONCE A DAY, NOTES: 10/21/16@2099 TAKING OMEPRAZOLE 40 MG CAPSULE DELAYED RELEASE 1 CAPSULE ORALLY TWICE DAILY, NOTES: 10/22/16@0&00 TAKING SENNA-LAX 8.6 MG TABLET 1 TABLET ORALLY ONCE A DAY NEEDED, NOTES: 10/22/16@699 TAKING BENAZEPRIL HCL 20 MG TABLET 1 TABLET ORALLY ONCE A DAY, NOTES: 10/22/16 TAKING AMLODIPINE BESYLATE 5 MG TABLET 1 TABLET ORALLY ONCE A DAY, NOTES: 10/22/16 TAKING RANITIDINE HCL 300 MG CAPSULE 1 CAPSULE AT BEDTIME ORALLY TWICE A DAY, NOTES: 10/22/16 TAKING VITAMIN D 1000 UNIT TABLET 1 TABLET ORALLY ONCE A DAY, NOTES: 10/22/16 TAKING BENADRYL 25 MG CAPSULE ORALLY NEEDED, NOTES: 10/21/16@2100 TAKING TRAMADOL HCL 50 MG TABLET 1-2 ORALLY EVERY 8 HRSMDD 4, NOTES: 10/22/16 TAKING TRAMADOL HCL 50 MG TABLET 2 ORALLY Q8H PRN MDD6, NOTES: 4/5/17@0700 NOT-TAKING TERBUTALINE SULFATE 5 MG TABLET 1 TABLET ORALLY EVERY 6 HRS, NOTES: 08/08/16 0500 NOT-TAKING XANAX 1 MG TABLET 1 TABLET ORALLY TWICE A DAY NOT-TAKING OXYCODONE HCL 5 MG TABLET 1 TABLET ORALLY EVERY 8 HRS MEDICATION LIST REVIEWED AND RECONCILED WITH THE PATIENT PAST MEDICAL HISTORY GERD COPD-04/14/2014 FEV1 2.3L (66%)/RATIO 78%//EMPHYSEMA RML SCARRING BY 01/2014 CT CHEST 06/23 TRAUMATIC PNEUMOTHORAX HYPERTENSION-07/2009 NORMAL DOBUTAMINE NUCLEAR STRESS, LVEF 67%-SLICK CHRONIC VENTRAL INCISIONAL HERNIA WITH DEHISCENCE SINCE 03/2013 CHRONIC HEPATITIS C BLOOD TRANSFUSION, FAILED ? IFN RX IN 2002 IN [place] GENOTYPE 1A STAGE F1-2 L HIP OA OSTEOPOROSIS ANXIETY DISORDER-05/2004 NORMAL MRI BRAIN C IAC PROTOCOL H/O ? SBO 03/2013 S/P SURGICAL REPAIR BY DR. ZAIRE BARTH WITH SECONDARY CHRONIC VENTRAL HERNIA NICOTINE ADDICTION-10 CIGS DAILY FROM 36 YO (STARTED P ) HISTORY CHRONIC STEROID USE FOR ASTHMA WEANED OFF 2002-PATIENT ON PREDNISONE 50 TID X 25-30 YEARS POUND SECONDARY WEIGHT LOSS LUMBAR DJD S/P EPIDURALS 12/2010 [facility] PC L4 COMPRESSION BY 11/2013 CT CHEST LLL LUNG NODULES FIRST SEEN 05/25/2013 CT CHEST HISTORY OF ALCOHOL ABUSE HEPATITIS C LIVER ULTRASOUND SHOWS MIDLINE ABNORMALITY WITH HYPOECHOIC AREA OF FIBROSIS AND LIVER SHOWS NO MASSES ALLERGIES DUST: RASH: ALLERGY VITAL SIGNS WT 180 LBS, HT 69 IN, BMI 26.58 INDEX, BP 111/81 MM HG, HR 114 /MIN, RR 18 /MIN, TEMP 976.0 F, OXYGEN SAT % 95%, NA INITIALS SC 14:20, REVIEWED BY: VD. ASSESSMENTS MYALGIA - M79.1 (PRIMARY) PROCEDURES PN TRIGGER POINT INJECTION WITH STEROIDS PRE PROCEDURE DIAGNOSIS 1. MYALGIA 2. PAIN AT BILATERAL NECK AREA AND BILATERAL SHOULDER AREA POST PROCEDURE DIAGNOSIS 1. MYALGIA 2. PAIN AT BILATERAL NECK AREA AND BILATERAL SHOULDER AREA PROCEDURE TRIGGER POINT INJECTION AT BILATERAL NECK AREA AND BILATERAL SHOULDER AREA SURGEON DR. JACE BROWN HAND BOOTMAKER NONE ANESTHESIA LOCAL PRE PROCEDURE NOTE THE PATIENT HAS A HISTORY OF CHRONIC PAIN AT THE RIGHT AND LEFT NECK AREA AND RIGHT AND LEFT SHOULDER AREA. I EVALUATE THE PATIENT AND REVIEWED THE CHART. THERE IS EVIDENCE OF BANDS OF TISSUE WITH RESTRICTION OF MOVEMENT AND PRESENCE OF TRIGGER POINT AT THE AFFECTED AREA. I WENT OVER THE RISKS, ALTERNATIVES, AND BENEFITS ASSOCIATED WITH THIS PROCEDURE. THE PATIENT WOULD LIKE TO PROCEED AND GIVE CONSENT TO PERFORMED THE PROCEDURE. THE PATIENT DENIES UNEXPLAINABLE WEIGHT LOSS, FEVER, CHILLS, OR NEW CHANGES IN URINARY OR BOWEL CONTROL DESCRIPTION OF PROCEDURE THE PATIENT WAS BROUGHT TO THE PROCEDURE ROOM AND PLACED IN THE SITTING POSITION. THE AREA WAS CLEANED WITH ALCOHOL. THE PROCEDURE WAS DONE USING ASEPTIC STERILE TECHNIQUE. I CHECKED LATERALITY AND THE LEVEL WHERE THE PROCEDURE WAS GOING TO BE PERFORMED WITH THE PATIENT AND THE SUPPORTING STAFF AT THE MOMENT OF THE TIME OUT IN THE PROCEDURE ROOM. USING A 25-GAUGE NEEDLE, TRIGGER POINTS WERE INJECTED AT THE RIGHT AND LEFT NECK AREA AND RIGHT AND LEFT SHOULDER AREA WITH A TOTAL OF 40 ML OF BUPIVACAINE 0.25% AND KENALOG 40 MG. THERE WAS NO EVIDENCE OF BLOOD, PARESTHESIA OR CEREBROSPINAL FLUID DURING THE PROCEDURE. THE PATIENT WAS SENT TO THE RECOVERY ROOM. THE PATIENT WAS MOVING THE EXTREMITIES AND DOING WELL. THERE WAS NO COMPLICATION DURING THE PROCEDURE POST PROCEDURE NOTE THE PATIENT WILL BE SEEN IN A FOLLOW UP IN THE NEXT FEW WEEKS. INSTRUCTIONS WERE GIVEN, QUESTIONS WERE ANSWERED, AND THE PATIENT EXPRESSED UNDERSTANDING AND AGREES WITH THE PLAN. I, ABHISHEK YANG, DOCUMENTED THE ABOVE INFORMATION ACTING A SCRIBE FOR DR. BROWN. I, DR. BROWN, HAVE REVIEWED THE ABOVE DOCUMENT, SCRIBED BY ABHISHEK YANG, AND I VERIFY THAT IT IS ACCURATE PROCEDURE CODES 67429 INJECT TRIGGER POINTS 3/> DISPOSITION & COMMUNICATION FOLLOW UP 3 WEEKS ELECTRONICALLY SIGNED BY JACE BROWN MD ON 10/26/2016 AT 08:37 PM EDT DISCLAIMER : THIS IS A VISIT SUMMARY EXTRACTED FROM THE [employer] CHART. IT IS NOT A COPY OF THE [employer] PROGRESS NOTE. ALEXIA
== END ==
LOC: M PAIN 13:40
PROVIDERS: ATTEND Anesthesiology
DX: G89.29 Other chronic pain (principal); M79.1 Myalgia; M54.2 Cervicalgia; M25.511 Pain in right shoulder; M25.512 Pain in left shoulder; Z79.891 Long term (current) use of opiate analgesic; Z79.899 Other long term (current) drug therapy; Z91.048 Other nonmedicinal substance allergy status; I10 Essential (primary) hypertension; K21.9 Gastro-esophageal reflux disease without esophagitis; F51.01 Primary insomnia
CPT/HCPCS: 20553; J3301

== ENCOUNTER → 2016-11-07 | Outpatient (CLI) | payer MEDICARE ==
[~2016-11-07] MED LIST changes: -BUPIVACAINE HCL 0.25% 10 ML VIAL As Ordered ONE; -BUPIVACAINE HCL 0.25% 30 ML VIAL As Ordered ONE; -TRIAMCINOLONE ACETONIDE SUSP 40 MG/ML VIAL (J3301) As Ordered ONE; -diazePAM 5 MG TAB As Ordered ONE; -oxyCODONE 5MG TAB As Ordered ONE
--- NOTE | 2016-11-18 00:59 | ECWPNPC ---
PATIENT NAME: CARLEEN JARRETT : 1955 GENDER: MALE VISIT DATE: 11/07/2016 DISCHARGE DATE: 11/07/16 1138 VISIT LOCKED DATE TIME: PHYSICIAN: TRACEE MAHAN RESOURCE: TRACEE MAHAN REASON FOR APPOINTMENT 1. POST PROCEDURE HISTORY OF PRESENT ILLNESS HISTORY OF PRESENT ILLNESS: HERE FOR POST PROCEDURE F/U.HAD TPI ON 10-22-16 NECK AND REOPRTS >50%IMPROVEMENT IN NECK PAIN THAT CONTINUES TODAY.CHIEF COMPLAINT IS LEFT LOW BACK THAT RADIATES INTO LEFT HIP.RATING PAIN VAS 8/10 LOW BACK/LEFT HIP.DESCRIBES PAIN INTERMITTENT SHARP AND STABBING.CURRENTLY USING 4-6 TRAMADOL DAILY WITH MINIMAL IMPROVEMENT.DISCUSSED TREATMENT OPTIONS. PAIN THE PATIENT DESCRIBES THE PAIN... FALL RISK SCREENING: SCREENING :NO FALLS IN THE PAST YEAR CURRENT MEDICATIONS TAKING OXYGEN KIT 2.0 LITERS ORALLY DAILY, NOTES: NONE TAKING IPRATROPIUM BROMIDE 0.02 % SOLUTION ONE APPLICATION INHALATION VIA NEBULIZER TAKING CANE MISCELLANEOUS _ DAILY TAKING WALKER GLIDE WHEELS MISCELLANEOUS _ DAILY TAKING PROAIR HFA 108 (90 BASE) MCG/ACT AEROSOL SOLUTION 2 PUFFS NEEDED INHALATION QID PRN TAKING FLOMAX 0.4 MG CAPSULE 1 CAPSULE 30 MINUTES AFTER THE SAME MEAL EACH DAY ORALLY ONCE A DAY TAKING OMEPRAZOLE 40 MG CAPSULE DELAYED RELEASE 1 CAPSULE ORALLY TWICE DAILY TAKING SENNA-LAX 8.6 MG TABLET 1 TABLET ORALLY ONCE A DAY NEEDED TAKING BENAZEPRIL HCL 20 MG TABLET 1 TABLET ORALLY ONCE A DAY TAKING AMLODIPINE BESYLATE 5 MG TABLET 1 TABLET ORALLY ONCE A DAY TAKING RANITIDINE HCL 300 MG CAPSULE 1 CAPSULE AT BEDTIME ORALLY TWICE A DAY TAKING VITAMIN D 1000 UNIT TABLET 1 TABLET ORALLY ONCE A DAY TAKING BENADRYL 25 MG CAPSULE ORALLY NEEDED TAKING TRAMADOL HCL 50 MG TABLET 1-2 ORALLY EVERY 8 HRS PRN PAIN MDD=6 TAKING LOPERAMIDE A-D 2 MG TABLET 1 TAB ORALLY DAILY PRN TAKING THEOPHYLLINE ER 300 MG CAPSULE EXTENDED RELEASE 24 HOUR ORALLY TAKING IPRATROPIUM-ALBUTEROL 0.5-2.5 (3) MG/3ML SOLUTION 3 ML INHALATION EVERY 6 HRS TAKING ADVAIR DISKUS 500-50 MCG/DOSE AEROSOL POWDER BREATH ACTIVATED 1 PUFF INHALATION TWICE A DAY NOT-TAKING TYLENOL EXTRA STRENGTH 500 MG TABLET 2 TABLETS NEEDED ORALLY EVERY 4- 6 HRS NEEDED NOT-TAKING TERBUTALINE SULFATE 5 MG TABLET 1 TABLET ORALLY EVERY 6 HRS, NOTES: 08/08/16 0500 NOT-TAKING XANAX 1 MG TABLET 1 TABLET ORALLY TWICE A DAY NOT-TAKING OXYCODONE HCL 5 MG TABLET 1 TABLET ORALLY EVERY 8 HRS DISCONTINUED SYMBICORT 160-4.5 MCG/ACT AEROSOL 2 PUFFS INHALATION TWICE A DAY DISCONTINUED TRAMADOL HCL 50 MG TABLET 2 ORALLY Q8H PRN MDD6 MEDICATION LIST REVIEWED AND RECONCILED WITH THE PATIENT PAST MEDICAL HISTORY GERD COPD-04/14/2014 FEV1 2.3L (66%)/RATIO 78%//EMPHYSEMA RML SCARRING BY 01/2014 CT CHEST 06/23 TRAUMATIC PNEUMOTHORAX HYPERTENSION-07/2009 NORMAL DOBUTAMINE NUCLEAR STRESS, LVEF 67%-SLICK CHRONIC VENTRAL INCISIONAL HERNIA WITH DEHISCENCE SINCE 03/2013 CHRONIC HEPATITIS C BLOOD TRANSFUSION, FAILED ? IFN RX IN 2002 IN [place] GENOTYPE 1A STAGE F1-2 L HIP OA OSTEOPOROSIS ANXIETY DISORDER-05/2004 NORMAL MRI BRAIN C IAC PROTOCOL H/O ? SBO 03/2013 S/P SURGICAL REPAIR BY DR. ZIARE BARTH WITH SECONDARY CHRONIC VENTRAL HERNIA NICOTINE ADDICTION-10 CIGS DAILY FROM 36 YO (STARTED P ) HISTORY CHRONIC STEROID USE FOR ASTHMA WEANED OFF 2002-PATIENT ON PREDNISONE 50 TID X 25-30 YEARS POUND SECONDARY WEIGHT LOSS LUMBAR DJD S/P EPIDURALS 12/2010 [facility] PC L4 COMPRESSION BY 11/2013 CT CHEST LLL LUNG NODULES FIRST SEEN 05/25/2013 CT CHEST HISTORY OF ALCOHOL ABUSE HEPATITIS C LIVER ULTRASOUND SHOWS MIDLINE ABNORMALITY WITH HYPOECHOIC AREA OF FIBROSIS AND LIVER SHOWS NO MASSES ALLERGIES DUST: RASH: ALLERGY SOCIAL HISTORY GENERAL: PAIN CLINIC PFS, CLERGY, PUBLIC HEALTH REFERRALS CLERGY REFERRAL NEEDED?NO WAS THE PROVIDER NOTIFIED OF ANY PERTINENT INFO?NO PFS REFERRAL NEEDED?NO PUBLIC HEALTH REFERRAL NEEDED?NO PATIENT: ____. REVIEW OF SYSTEMS CONSTITUTIONAL: ANY CHANGE IN YOUR MEDICAL CONDITION? NO . CHILLS NO . FEVER NO . INFECTION: DO YOU HAVE NEW INFECTIONS? NO . DO YOU HAVE HISTORY OF MRSA? NO . MUSCULOSKELETAL: ANY NEW PATTERNS OF PAIN OR NUMBNESS? NO . GASTROENTEROLOGY: ANY NEW CHANGE IN BOWEL CONTROL? NO . GENITOURINARY: ANY NEW CHANGE IN BLADDER CONTROL? NO . IS THERE A CHANCE YOU COULD BE ? NO . HEMATOLOGY/LYMPH: DO YOU TAKE ANY BLOOD THINNERS? (FOR EXAMPLE- COUMADIN, PLAVIX, AGGRENOX, PLATEL, PRADAXA, OR XARELTO) NO . WHEN WAS YOUR LAST DOSE? DATE: TIME: . NEUROLOGY: HAVE YOU FALLEN IN THE PAST 6 MONTHS? YES, APPROX2 WEEKS AGO--INCREASE PAIN LEFT HIP . ANY NEW EXTREMITY NUMBNESS OR WEAKNESS? NO . CARDIOLOGY: DO YOU HAVE A PACEMAKER OR DEFIBRILLATOR? NO . RESPIRATORY: HAVE YOU BEEN SICK IN THE PAST WEEK? NO . FEVER NO . FLU LIKE SYMPTOMS? NO . COUGH NO . INTEGUMENTARY: DO YOU HAVE ANY RASHES OR OPEN SORES? NO . ALLERGIC/IMMUNO: ARE YOU ALLERGIC TO SHELLFISH OR IV DYE? NO . ANY NEW ALLERGIES? NO . PSYCHIATRIC: DO YOU HAVE THOUGHTS OF HURTING YOURSELF OR SOMEONE ELSE? NO . ARE YOU ABUSED, NEGLECTED, OR IN AN UNSAFE ENVIRONMENT? NO . ENDOCRINOLOGY: ARE YOU DIABETIC? NO . OTHER: DO YOU NEED ANY PRESCRIPTIONS? NO . IF YES, PLEASE LIST: ____ . ANY NEW PROBLEMS WITH YOUR MEDICATIONS? NO . WHEN DID YOU LAST EAT? ____ . WHEN DID YOU LAST DRINK? ____ . WHAT DID YOU LAST DRINK? ____ . NAME OF PERSON DRIVING YOU HOME? ____ . DO YOU HAVE ANY OTHER QUESTIONS OR CONCERNS NO . REVIEWED BY: PROVIDER: TRACEE GARCIA . VITAL SIGNS WT 180 LBS, HT 69 IN, BMI 26.58 INDEX, BP 194/94 MM HG, HR 85 /MIN, RR 20 /MIN, OXYGEN SAT % 96%, NA INITIALS SC10:44, REVIEWED BY: AD, BP SITTING 174/74. EXAMINATION GENERAL EXAMINATION: LUNGS:LUNG SOUNDS ARE CLEAR. HEART:HEART RATE REGULAR. MUSCULOSKELETAL:*, MUSCLE STRENGTH TESTING 5/5 BILATERAL, TRIGGER POINTS:, ELICITED WITH PALPATION OVER CERVICAL SPINOUS PROCESSES AND ACROSS THE TRAPEZIUS MUSCLES BILATERALLY. RESTRICTION OF ROM IS NOTED. , SHOULDERS FULL RANGE OF MOTION. L/S SPINE-TENDERNESS.SPECIFIC LEFT HIP TENDERNESS W PALPATION.DIAGNOSTIC DATA- CT OF LEFT HIP WITHOUT CONTRAST 04-04-16-NO EVIDENCE OF FX,AVN,OR ACUTE DESTRUCTIVE BONE LESION.. ASSESSMENTS LEFT HIP PAIN - M25.552 (PRIMARY) CHRONIC PRESCRIPTION OPIATE USE - Z79.891 MYALGIA - M79.1 TREATMENT LEFT HIP PAIN CONTINUE TRAMADOL HCL TABLET, 50 MG, 1-2, ORALLY, EVERY 8 HRS PRN PAIN MDD=6 [facility] MRI SPINE, L.S. WITHOUT [id number] PROCEDURE CODES FA211 ESTABILISHED PATIENT [facility] CHARGE DISPOSITION & COMMUNICATION FOLLOW UP 4 WEEKS ELECTRONICALLY SIGNED BY RADHA GARCIA ON 11/17/2016 AT 04:24 PM EDT DISCLAIMER : THIS IS A VISIT SUMMARY EXTRACTED FROM THE [email or web address] CHART. IT IS NOT A COPY OF THE [employer] PROGRESS NOTE. MTDD
== END ==
LOC: M PAIN 10:40
PROVIDERS: ATTEND Nurse Practitioner Family
DX: M25.552 Pain in left hip (principal); M79.1 Myalgia; Z79.891 Long term (current) use of opiate analgesic; Z79.899 Other long term (current) drug therapy; I10 Essential (primary) hypertension; J41.1 Mucopurulent chronic bronchitis; B18.2 Chronic viral hepatitis C; K21.9 Gastro-esophageal reflux disease without esophagitis

== ENCOUNTER → 2016-12-10 | Outpatient (CLI) | payer MEDICARE ==
--- NOTE | 2016-12-10 23:37 | ECWPNPC ---
PATIENT NAME: CARLEEN JARRETT : 1955 GENDER: MALE VISIT DATE: 12/10/2016 DISCHARGE DATE: 12/10/16 1102 VISIT LOCKED DATE TIME: PHYSICIAN: TRACEE MAHAN RESOURCE: TRACEE MAHAN REASON FOR APPOINTMENT 1. REVIEW MRI HISTORY OF PRESENT ILLNESS HISTORY OF PRESENT ILLNESS: HERE FOR F/U.HAD TPI ON 10-22-16 NECK AND REOPRTED >50%IMPROVEMENT IN NECK PAIN THAT CONTINUES TODAY.CHIEF COMPLAINT IS LEFT LOW BACK THAT RADIATES INTO LEFT HIP.RATING PAIN VAS 8/10 LOW BACK/LEFT HIP.DESCRIBES PAIN INTERMITTENT SHARP AND STABBING.CURRENTLY USING 4-6 TRAMADOL DAILY WITH MINIMAL IMPROVEMENT.DISCUSSED TREATMENT OPTIONS.HAS NOT RECIEVED AUTHORIZATION FOR MRI FROM INSURANCE. PAIN THE PATIENT DESCRIBES THE PAIN... THE PATIENT DESCRIBES THE PAIN... FALL RISK SCREENING: SCREENING :NO FALLS IN THE PAST YEAR CURRENT MEDICATIONS TAKING OXYGEN KIT 2.0 LITERS ORALLY DAILY, NOTES: NONE TAKING IPRATROPIUM BROMIDE 0.02 % SOLUTION ONE APPLICATION INHALATION VIA NEBULIZER TAKING CANE MISCELLANEOUS _ DAILY TAKING WALKER GLIDE WHEELS MISCELLANEOUS _ DAILY TAKING PROAIR HFA 108 (90 BASE) MCG/ACT AEROSOL SOLUTION 2 PUFFS NEEDED INHALATION QID PRN TAKING FLOMAX 0.4 MG CAPSULE 1 CAPSULE 30 MINUTES AFTER THE SAME MEAL EACH DAY ORALLY ONCE A DAY TAKING OMEPRAZOLE 40 MG CAPSULE DELAYED RELEASE 1 CAPSULE ORALLY TWICE DAILY TAKING SENNA-LAX 8.6 MG TABLET 1 TABLET ORALLY ONCE A DAY NEEDED TAKING BENAZEPRIL HCL 20 MG TABLET 1 TABLET ORALLY ONCE A DAY TAKING AMLODIPINE BESYLATE 5 MG TABLET 1 TABLET ORALLY ONCE A DAY TAKING RANITIDINE HCL 300 MG CAPSULE 1 CAPSULE AT BEDTIME ORALLY TWICE A DAY TAKING VITAMIN D 1000 UNIT TABLET 1 TABLET ORALLY ONCE A DAY TAKING BENADRYL 25 MG CAPSULE ORALLY NEEDED TAKING LOPERAMIDE A-D 2 MG TABLET 1 TAB ORALLY DAILY PRN TAKING THEOPHYLLINE ER 300 MG CAPSULE EXTENDED RELEASE 24 HOUR ORALLY TAKING IPRATROPIUM-ALBUTEROL 0.5-2.5 (3) MG/3ML SOLUTION 3 ML INHALATION EVERY 6 HRS TAKING ADVAIR DISKUS 500-50 MCG/DOSE AEROSOL POWDER BREATH ACTIVATED 1 PUFF INHALATION TWICE A DAY TAKING TRAMADOL HCL 50 MG TABLET 1-2 ORALLY EVERY 8 HRS PRN PAIN MDD=6 TAKING VALSARTAN 160 MG TABLET 1 TABLET ORALLY ONCE A DAY TAKING BUSPIRONE HCL 10 MG TABLET 1 TABLET ORALLY TWICE A DAY TAKING TRAZODONE HCL 50 MG TABLET 1 TABLET AT BEDTIME NEEDED ORALLY ONCE A DAY TAKING ALBUTEROL SULFATE 2 MG TABLET 1 TABLET ORALLY BID TAKING DULERA 200-5 MCG/ACT AEROSOL 2 PUFFS INHALATION TWICE A DAY NOT-TAKING TYLENOL EXTRA STRENGTH 500 MG TABLET 2 TABLETS NEEDED ORALLY EVERY 4- 6 HRS NEEDED NOT-TAKING TERBUTALINE SULFATE 5 MG TABLET 1 TABLET ORALLY EVERY 6 HRS, NOTES: 08/08/16 0500 NOT-TAKING XANAX 1 MG TABLET 1 TABLET ORALLY TWICE A DAY NOT-TAKING OXYCODONE HCL 5 MG TABLET 1 TABLET ORALLY EVERY 8 HRS MEDICATION LIST REVIEWED AND RECONCILED WITH THE PATIENT PAST MEDICAL HISTORY GERD COPD-04/14/2014 FEV1 2.3L (66%)/RATIO 78%//EMPHYSEMA RML SCARRING BY 01/2014 CT CHEST 06/23 TRAUMATIC PNEUMOTHORAX HYPERTENSION-07/2009 NORMAL DOBUTAMINE NUCLEAR STRESS, LVEF 67%-SLICK CHRONIC VENTRAL INCISIONAL HERNIA WITH DEHISCENCE SINCE 03/2013 CHRONIC HEPATITIS C BLOOD TRANSFUSION, FAILED ? IFN RX IN 2002 IN [place] GENOTYPE 1A STAGE F1-2 L HIP OA OSTEOPOROSIS ANXIETY DISORDER-05/2004 NORMAL MRI BRAIN C IAC PROTOCOL H/O ? SBO 03/2013 S/P SURGICAL REPAIR BY DR. ZAIRE BARTH WITH SECONDARY CHRONIC VENTRAL HERNIA NICOTINE ADDICTION-10 CIGS DAILY FROM 36 YO (STARTED P ) HISTORY CHRONIC STEROID USE FOR ASTHMA WEANED OFF 2002-PATIENT ON PREDNISONE 50 TID X 25-30 YEARS POUND SECONDARY WEIGHT LOSS LUMBAR DJD S/P EPIDURALS 12/2010 [facility] PC L4 COMPRESSION BY 11/2013 CT CHEST LLL LUNG NODULES FIRST SEEN 05/25/2013 CT CHEST HISTORY OF ALCOHOL ABUSE HEPATITIS C LIVER ULTRASOUND SHOWS MIDLINE ABNORMALITY WITH HYPOECHOIC AREA OF FIBROSIS AND LIVER SHOWS NO MASSES ALLERGIES DUST: RASH: ALLERGY SURGICAL HISTORY BOWEL PERFORATION HOSPITALIZED AT [facility] 2012 RIGHT FEMORAL NECK FRACTURE STATUS POST ORIF BY DR. ELMA DOUGHERTY 2013 TRACHEOSTOMY HOSPITALIZATION/MAJOR DIAGNOSTIC PROCEDURE ABOVE REVIEW OF SYSTEMS CONSTITUTIONAL: ANY CHANGE IN YOUR MEDICAL CONDITION? NO . CHILLS NO . FEVER NO . INFECTION: DO YOU HAVE NEW INFECTIONS? NO . DO YOU HAVE HISTORY OF MRSA? NO . MUSCULOSKELETAL: ANY NEW PATTERNS OF PAIN OR NUMBNESS? YESPT STATES PAIN 8/10, INCREASING . GASTROENTEROLOGY: ANY NEW CHANGE IN BOWEL CONTROL? NO . GENITOURINARY: ANY NEW CHANGE IN BLADDER CONTROL? NO . IS THERE A CHANCE YOU COULD BE ? NO . HEMATOLOGY/LYMPH: DO YOU TAKE ANY BLOOD THINNERS? (FOR EXAMPLE- COUMADIN, PLAVIX, AGGRENOX, PLATEL, PRADAXA, OR XARELTO) NO . WHEN WAS YOUR LAST DOSE? DATE: TIME: . NEUROLOGY: HAVE YOU FALLEN IN THE PAST 6 MONTHS? NO . ANY NEW EXTREMITY NUMBNESS OR WEAKNESS? NO . CARDIOLOGY: DO YOU HAVE A PACEMAKER OR DEFIBRILLATOR? NO . RESPIRATORY: HAVE YOU BEEN SICK IN THE PAST WEEK? NO . FEVER NO . FLU LIKE SYMPTOMS? NO . COUGH NO . INTEGUMENTARY: DO YOU HAVE ANY RASHES OR OPEN SORES? NO . ALLERGIC/IMMUNO: ARE YOU ALLERGIC TO SHELLFISH OR IV DYE? NO . ANY NEW ALLERGIES? NO . PSYCHIATRIC: DO YOU HAVE THOUGHTS OF HURTING YOURSELF OR SOMEONE ELSE? NO . ARE YOU ABUSED, NEGLECTED, OR IN AN UNSAFE ENVIRONMENT? NO . ENDOCRINOLOGY: ARE YOU DIABETIC? NO . OTHER: DO YOU NEED ANY PRESCRIPTIONS? NO . IF YES, PLEASE LIST: ____ . ANY NEW PROBLEMS WITH YOUR MEDICATIONS? NO . WHEN DID YOU LAST EAT? ____ . WHEN DID YOU LAST DRINK? ____ . WHAT DID YOU LAST DRINK? ____ . NAME OF PERSON DRIVING YOU HOME? ____ . DO YOU HAVE ANY OTHER QUESTIONS OR CONCERNS NO . REVIEWED BY: PROVIDER: TRACEE GARCIA . VITAL SIGNS WT 195.8 LBS, HT 69 IN, BMI 28.91 INDEX, BP 160/77 MM HG, HR 94 /MIN, RR 18 /MIN, TEMP 98.5 F, OXYGEN SAT % 96%, SAFE IN ENV? (Y/N) Y, NA INITIALS TL 1000, REVIEWED BY: EM. EXAMINATION GENERAL EXAMINATION: LUNGS:LUNG SOUNDS ARE CLEAR. HEART:HEART RATE REGULAR. MUSCULOSKELETAL:*, MUSCLE STRENGTH TESTING 5/5 BILATERAL, TRIGGER POINTS:, ELICITED WITH PALPATION OVER CERVICAL SPINOUS PROCESSES AND ACROSS THE TRAPEZIUS MUSCLES BILATERALLY. RESTRICTION OF ROM IS NOTED. , SHOULDERS FULL RANGE OF MOTION. L/S SPINE-TENDERNESS.SPECIFIC LEFT HIP TENDERNESS W PALPATION.DIAGNOSTIC DATA- CT OF LEFT HIP WITHOUT CONTRAST 04-04-16-NO EVIDENCE OF FX,AVN,OR ACUTE DESTRUCTIVE BONE LESION.. ASSESSMENTS LEFT HIP PAIN - M25.552 (PRIMARY) CHRONIC PRESCRIPTION OPIATE USE - Z79.891 MYALGIA - M79.1 LUMBAR RADICULOPATHY - M54.16 TREATMENT LEFT HIP PAIN [facility] SPINE, L.S. WITHOUT [id number],HEMA 12/10/2016 10:57:04 AM > AUTH [id number] EXP 01-24-17 PROCEDURE CODES FA211 ESTABILISHED PATIENT [facility] CHARGE G8730 PAIN ASSESS POS TOOL F/U PLAN DOC [id number] DOC MEDS VERIFIED W/PT OR RE DISPOSITION & COMMUNICATION FOLLOW UP 3 WEEKS ELECTRONICALLY SIGNED BY RADHA GARCIA ON 12/10/2016 AT 02:31 PM EDT DISCLAIMER : THIS IS A VISIT SUMMARY EXTRACTED FROM THE [employer] CHART. IT IS NOT A COPY OF THE [employer] PROGRESS NOTE. MTDD
== END ==
LOC: M PAIN 10:00
PROVIDERS: ATTEND Nurse Practitioner Family
DX: M25.552 Pain in left hip (principal); Z79.891 Long term (current) use of opiate analgesic; M79.1 Myalgia; M54.16 Radiculopathy, lumbar region; Z79.899 Other long term (current) drug therapy; J30.89 Other allergic rhinitis; J41.1 Mucopurulent chronic bronchitis; I10 Essential (primary) hypertension; B18.2 Chronic viral hepatitis C; K21.9 Gastro-esophageal reflux disease without esophagitis; F51.01 Primary insomnia; M70.62 Trochanteric bursitis, left hip

== ENCOUNTER → 2016-12-26 | Outpatient (CLI) | payer MEDICARE ==
--- NOTE | 2016-12-26 12:08 | REP ---
MRI LUMBAR SPINE WITHOUT CONTRAST: HISTORY: Left hip pain. COMPARISON: 01/04/2015. Decreased signal intensity on T2-weighted images is present in the lumbar intervertebral discs. The discs are decreased in height. These findings are consistent with disc degeneration. There is no disc bulge or herniation at the L1-2 level. There is hypertrophy of the posterior articulating facets. The L1 nerves exit the neural foramina without compression. A diffuse disc bulge is present at the L2-3 level. There is hypertrophy of the ligamenta flava and posterior articulating facets.? These findings produce minimal central canal stenosis. The L2 nerves exit the neural foramina without compression. A diffuse disc bulge is present at the L3-4 level. There is hypertrophy of the ligamenta flava and posterior articulating facets. These findings produce moderate central canal stenosis. There is compression of the right L3 nerve in the neural foramen. The left L3 nerve exits the neural foramen without compression. A diffuse disc bulge is present at the L4-5 level. There is hypertrophy of the ligamenta flava and posterior articulating facets. These findings produce minimal central canal stenosis. The L4 nerves exit the neural foramina without compression. A diffuse disc bulge and small central disc protrusion are present at the L5-S1 level. There is minimal compression of the thecal sac. There is hypertrophy of the posterior articulating facets. The L5 nerves exit the neural foramina without compression. The conus medullaris is normal in appearance terminating at the level of the T12-L1 intervertebral disc. Increased signal intensity on T2-weighted images is present in the superior endplate of the L4 vertebral body. This represents degenerative change. There is an old compression fracture of the L4 vertebral body with minimal height loss. IMPRESSION: 1. Minimal central canal stenosis at the L2-3 and L4-5 levels secondary to disc bulge, ligamentous and facet hypertrophy. 2. Moderate central canal stenosis at the L3-4 level secondary to disc bulge, ligamentous and facet hypertrophy. There is compression of the right L3 nerve in the neural foramen. 3. Diffuse disc bulge and small central disc protrusion at the L5-S1 level with minimal thecal sac compression. There is no change compared to the previous study. Signed by Chaitanya Kyle MD 12/26/2016 12:12 P
== END ==
LOC: M RAD 10:50
PROVIDERS: ATTEND Nurse Practitioner Family
DX: M25.552 Pain in left hip (principal)

== ENCOUNTER → 2017-01-08 | Outpatient (CLI) | payer MEDICARE ==
[~2017-01-08] MED LIST changes: -IBUP200C PO; +IBUP200C10 PO; -PROA1AER IN; +PROAAER10 IN; +SENN18TA PO; -SENN1TAB4 PO
--- NOTE | 2017-01-13 23:43 | ECWPNPC ---
PATIENT NAME: CARLEEN JARRETT : 1955 GENDER: MALE VISIT DATE: 01/08/2017 DISCHARGE DATE: 01/08/17 1148 VISIT LOCKED DATE TIME: PHYSICIAN: TRACEE MAHAN RESOURCE: TRACEE MAHAN REASON FOR APPOINTMENT 1. HIP HISTORY OF PRESENT ILLNESS HISTORY OF PRESENT ILLNESS: HERE FOR F/U.HAD CHIEF COMPLAINT IS LEFT LOW BACK THAT RADIATES INTO LEFT HIP.RATING PAIN VAS 8/10 LOW BACK/LEFT HIP.DESCRIBES PAIN INTERMITTENT SHARP AND STABBING.CURRENTLY USING 4-6 TRAMADOL DAILY WITH MINIMAL IMPROVEMENT.REVIEWED MRI L/S [id number] I ORDERED.SHOWING MULTI LEVEL DEGENERATIVE CHANGES AND FACET ARTHROPATHY.OLD COMPRESSION FX AT L4.MODERATE SPINAL STENOSIS IS NOTED AT L3/4. PAIN THE PATIENT DESCRIBES THE PAIN... THE PATIENT DESCRIBES THE PAIN... THE PATIENT DESCRIBES THE PAIN... FALL RISK SCREENING: SCREENING :NO FALLS IN THE PAST YEAR CURRENT MEDICATIONS TAKING OXYGEN KIT 2.0 LITERS ORALLY DAILY, NOTES: NONE TAKING IPRATROPIUM BROMIDE 0.02 % SOLUTION ONE APPLICATION INHALATION VIA NEBULIZER TAKING CANE MISCELLANEOUS _ DAILY TAKING WALKER GLIDE WHEELS MISCELLANEOUS _ DAILY TAKING PROAIR HFA 108 (90 BASE) MCG/ACT AEROSOL SOLUTION 2 PUFFS NEEDED INHALATION QID PRN TAKING FLOMAX 0.4 MG CAPSULE 1 CAPSULE 30 MINUTES AFTER THE SAME MEAL EACH DAY ORALLY ONCE A DAY TAKING OMEPRAZOLE 40 MG CAPSULE DELAYED RELEASE 1 CAPSULE ORALLY TWICE DAILY TAKING SENNA-LAX 8.6 MG TABLET 1 TABLET ORALLY ONCE A DAY NEEDED TAKING AMLODIPINE BESYLATE 5 MG TABLET 1 TABLET ORALLY ONCE A DAY TAKING VITAMIN D 1000 UNIT TABLET 1 TABLET ORALLY ONCE A DAY TAKING BENADRYL 25 MG CAPSULE ORALLY NEEDED TAKING LOPERAMIDE A-D 2 MG TABLET 1 TAB ORALLY DAILY PRN TAKING THEOPHYLLINE ER 300 MG CAPSULE EXTENDED RELEASE 24 HOUR ORALLY TAKING IPRATROPIUM-ALBUTEROL 0.5-2.5 (3) MG/3ML SOLUTION 3 ML INHALATION EVERY 6 HRS TAKING ADVAIR DISKUS 500-50 MCG/DOSE AEROSOL POWDER BREATH ACTIVATED 1 PUFF INHALATION TWICE A DAY TAKING TRAMADOL HCL 50 MG TABLET 1-2 ORALLY EVERY 8 HRS PRN PAIN MDD=6 TAKING VALSARTAN 160 MG TABLET 1 TABLET ORALLY ONCE A DAY TAKING BUSPIRONE HCL 10 MG TABLET 1 TABLET ORALLY TWICE A DAY TAKING TRAZODONE HCL 50 MG TABLET 1 TABLET AT BEDTIME NEEDED ORALLY ONCE A DAY TAKING ALBUTEROL SULFATE 2 MG TABLET 1 TABLET ORALLY BID NOT-TAKING BENAZEPRIL HCL 20 MG TABLET 1 TABLET ORALLY ONCE A DAY NOT-TAKING RANITIDINE HCL 300 MG CAPSULE 1 CAPSULE AT BEDTIME ORALLY TWICE A DAY NOT-TAKING DULERA 200-5 MCG/ACT AEROSOL 2 PUFFS INHALATION TWICE A DAY NOT-TAKING TYLENOL EXTRA STRENGTH 500 MG TABLET 2 TABLETS NEEDED ORALLY EVERY 4- 6 HRS NEEDED NOT-TAKING TERBUTALINE SULFATE 5 MG TABLET 1 TABLET ORALLY EVERY 6 HRS, NOTES: 08/08/16 0500 NOT-TAKING XANAX 1 MG TABLET 1 TABLET ORALLY TWICE A DAY NOT-TAKING OXYCODONE HCL 5 MG TABLET 1 TABLET ORALLY EVERY 8 HRS MEDICATION LIST REVIEWED AND RECONCILED WITH THE PATIENT PAST MEDICAL HISTORY GERD COPD-04/14/2014 FEV1 2.3L (66%)/RATIO 78%//EMPHYSEMA RML SCARRING BY 01/2014 CT CHEST 06/23 TRAUMATIC PNEUMOTHORAX HYPERTENSION-07/2009 NORMAL DOBUTAMINE NUCLEAR STRESS, LVEF 67%-SLICK CHRONIC VENTRAL INCISIONAL HERNIA WITH DEHISCENCE SINCE 03/2013 CHRONIC HEPATITIS C BLOOD TRANSFUSION, FAILED ? IFN RX IN 2002 IN [place] GENOTYPE 1A STAGE F1-2 L HIP OA OSTEOPOROSIS ANXIETY DISORDER-05/2004 NORMAL MRI BRAIN C IAC PROTOCOL H/O ? SBO 03/2013 S/P SURGICAL REPAIR BY DR. ZAIRE BARTH WITH SECONDARY CHRONIC VENTRAL HERNIA NICOTINE ADDICTION-10 CIGS DAILY FROM 36 YO (STARTED P ) HISTORY CHRONIC STEROID USE FOR ASTHMA WEANED OFF 2002-PATIENT ON PREDNISONE 50 TID X 25-30 YEARS POUND SECONDARY WEIGHT LOSS LUMBAR DJD S/P EPIDURALS 12/2010 [facility] PC L4 COMPRESSION BY 11/2013 CT CHEST LLL LUNG NODULES FIRST SEEN 05/25/2013 CT CHEST HISTORY OF ALCOHOL ABUSE HEPATITIS C LIVER ULTRASOUND SHOWS MIDLINE ABNORMALITY WITH HYPOECHOIC AREA OF FIBROSIS AND LIVER SHOWS NO MASSES ALLERGIES DUST: RASH: ALLERGY SURGICAL HISTORY BOWEL PERFORATION HOSPITALIZED AT [facility] 2012 RIGHT FEMORAL NECK FRACTURE STATUS POST ORIF BY DR. ELMA DOUGHERTY 2013 TRACHEOSTOMY HOSPITALIZATION/MAJOR DIAGNOSTIC PROCEDURE ABOVE REVIEW OF SYSTEMS REVIEWED BY: PROVIDER: TRACEE GARCIA . CONSTITUTIONAL: ANY CHANGE IN YOUR MEDICAL CONDITION? NO . CHILLS NO . FEVER NO . INFECTION: DO YOU HAVE NEW INFECTIONS? NO . DO YOU HAVE HISTORY OF MRSA? NO . MUSCULOSKELETAL: ANY NEW PATTERNS OF PAIN OR NUMBNESS? YES, PT REPORTS LEFT HIP PAIN INCREASED TO 9/10 FOR PAST 4-5 WEEKS . GASTROENTEROLOGY: ANY NEW CHANGE IN BOWEL CONTROL? NO . GENITOURINARY: ANY NEW CHANGE IN BLADDER CONTROL? NO . IS THERE A CHANCE YOU COULD BE ? NO . HEMATOLOGY/LYMPH: DO YOU TAKE ANY BLOOD THINNERS? (FOR EXAMPLE- COUMADIN, PLAVIX, AGGRENOX, PLATEL, PRADAXA, OR XARELTO) NO . WHEN WAS YOUR LAST DOSE? DATE: TIME: . NEUROLOGY: HAVE YOU FALLEN IN THE PAST 6 MONTHS? NO . ANY NEW EXTREMITY NUMBNESS OR WEAKNESS? NO . CARDIOLOGY: DO YOU HAVE A PACEMAKER OR DEFIBRILLATOR? NO . RESPIRATORY: HAVE YOU BEEN SICK IN THE PAST WEEK? NO . FEVER NO . FLU LIKE SYMPTOMS? NO . COUGH NO . INTEGUMENTARY: DO YOU HAVE ANY RASHES OR OPEN SORES? NO . ALLERGIC/IMMUNO: ARE YOU ALLERGIC TO SHELLFISH OR IV DYE? NO . ANY NEW ALLERGIES? NO . PSYCHIATRIC: DO YOU HAVE THOUGHTS OF HURTING YOURSELF OR SOMEONE ELSE? NO . ARE YOU ABUSED, NEGLECTED, OR IN AN UNSAFE ENVIRONMENT? NO . ENDOCRINOLOGY: ARE YOU DIABETIC? NO . OTHER: DO YOU NEED ANY PRESCRIPTIONS? NO . IF YES, PLEASE LIST: ____ . ANY NEW PROBLEMS WITH YOUR MEDICATIONS? NO . WHEN DID YOU LAST EAT? ____ . WHEN DID YOU LAST DRINK? ____ . WHAT DID YOU LAST DRINK? ____ . NAME OF PERSON DRIVING YOU HOME? ____ . DO YOU HAVE ANY OTHER QUESTIONS OR CONCERNS NO . VITAL SIGNS WT 189 LBS, HT 69 IN, BMI 27.91 INDEX, BP 137/77 MM HG, HR 85 /MIN, RR 18 /MIN, TEMP 97.7 F, OXYGEN SAT % 94%, SAFE IN ENV? (Y/N) Y, NA INITIALS [place] 11:06, REVIEWED BY: RACHEL. EXAMINATION GENERAL EXAMINATION: LUNGS:LUNG SOUNDS ARE CLEAR. HEART:HEART RATE REGULAR. MUSCULOSKELETAL:*, MUSCLE STRENGTH TESTING 5/5 BILATERAL, TRIGGER POINTS:, ELICITED WITH PALPATION OVER CERVICAL SPINOUS PROCESSES AND ACROSS THE TRAPEZIUS MUSCLES BILATERALLY. RESTRICTION OF ROM IS NOTED. , SHOULDERS FULL RANGE OF MOTION. L/S SPINE-TENDERNESS.SPECIFIC LEFT HIP TENDERNESS W PALPATION.DIAGNOSTIC DATA- CT OF LEFT HIP WITHOUT CONTRAST 04-04-16-NO EVIDENCE OF FX,AVN,OR ACUTE DESTRUCTIVE BONE LESION.SPECIFIC POINT TENDERNESS OVER LUMBAR FACET L4/5-L5/S1 WITH FACET LOADING BILATERALLY. ASSESSMENTS LUMBAR SPONDYLOSIS - M47.816 (PRIMARY) RADICULOPATHY OF LUMBAR REGION - M54.16 SPINAL STENOSIS, LUMBAR REGION - M48.06 TREATMENT LUMBAR SPONDYLOSIS CONTINUE TRAMADOL HCL TABLET, 50 MG, 1-2, ORALLY, EVERY 8 HRS PRN PAIN MDD=6 NOTES: BILATERAL L4/5-L5/S1 THERAPEUTIC FACET BLOCK,WHAT IS LUMBAR EPIDURAL INJECTION? MATERIAL WAS PRINTED, REVIEWED AND GIVEN TO PT. PROCEDURE CODES FA211 ESTABILISHED PATIENT [facility] FACILITY CHARGE G8730 PAIN ASSESS POS TOOL F/U PLAN DOC G8427 DOC MEDS VERIFIED W/PT OR RE DISPOSITION & COMMUNICATION FOLLOW UP 2WK POST (REASON: BILATERAL L4/5-L5/S1 THERAPEUTIC FACET BLOCK) ELECTRONICALLY SIGNED BY RADHA GARCIA ON 01/13/2017 AT 12:37 PM EDT DISCLAIMER : THIS IS A VISIT SUMMARY EXTRACTED FROM THE [employer] CHART. IT IS NOT A COPY OF THE [employer] PROGRESS NOTE. MTDD
== END ==
LOC: M PAIN 11:00
PROVIDERS: ATTEND Nurse Practitioner Family
DX: G89.29 Other chronic pain (principal); M47.26 Other spondylosis with radiculopathy, lumbar region; M48.06 Spinal stenosis, lumbar region; K21.9 Gastro-esophageal reflux disease without esophagitis; J44.9 Chronic obstructive pulmonary disease, unspecified; I10 Essential (primary) hypertension; B18.2 Chronic viral hepatitis C; M81.0 Age-related osteoporosis without current pathological fracture; F41.9 Anxiety disorder, unspecified; F17.210 Nicotine dependence, cigarettes, uncomplicated; M17.12 Unilateral primary osteoarthritis, left knee; Z99.81 Dependence on supplemental oxygen; Z79.51 Long term (current) use of inhaled steroids; Z79.899 Other long term (current) drug therapy; Z91.048 Other nonmedicinal substance allergy status

== ENCOUNTER → 2017-01-23 | Outpatient (CLI) | payer MEDICARE ==
[~2017-01-23] MED LIST changes: +BUPIVACAINE HCL 0.25% 30 ML VIAL As Ordered ONE; +ISOVUE-M 300 61% 15ML VIAL (Q9967) As Ordered ONE; +LIDOCAINE 1% SDV INJ 30 ML VIAL As Ordered ONE; +TRIAMCINOLONE ACETONIDE SUSP 40 MG/ML VIAL (J3301) As Ordered ONE; +diazePAM 5 MG TAB As Ordered ONE; +oxyCODONE 5MG TAB As Ordered ONE
--- NOTE | 2017-01-23 14:52 | REP ---
Partial lumbar spine series: Two views . History: Injection procedure for pain. 22 seconds of fluoroscopy time is reported. Findings: A sequence of three fluoroscopically obtained last image hold procedural spot radiographs of the lumbar spine document needle position and contrast injection associated with injection procedure. Signed by Srinivas Wilson MD 01/23/2017 02:44 P
--- NOTE | 2017-02-01 23:43 | ECWPNPC ---
PATIENT NAME: CARLEEN JARRETT : 1955 GENDER: MALE VISIT DATE: 01/23/2017 DISCHARGE DATE: 01/23/17 1226 VISIT LOCKED DATE TIME: PHYSICIAN: JACE BROWN RESOURCE: JACE BROWN REASON FOR APPOINTMENT 1. BILATERAL L4/5-L5/S1 THERAPEUTIC FACET BLOCK CURRENT MEDICATIONS TAKING OXYGEN KIT 2.0 LITERS ORALLY DAILY, NOTES: NONE TAKING IPRATROPIUM BROMIDE 0.02 % SOLUTION ONE APPLICATION INHALATION VIA NEBULIZER TAKING CANE MISCELLANEOUS _ DAILY TAKING WALKER GLIDE WHEELS MISCELLANEOUS _ DAILY TAKING PROAIR HFA 108 (90 BASE) MCG/ACT AEROSOL SOLUTION 2 PUFFS NEEDED INHALATION QID PRN, NOTES: 01-23-17599 TAKING FLOMAX 0.4 MG CAPSULE 1 CAPSULE 30 MINUTES AFTER THE SAME MEAL EACH DAY ORALLY ONCE A DAY, NOTES: 01-23-17599 TAKING OMEPRAZOLE 40 MG CAPSULE DELAYED RELEASE 1 CAPSULE ORALLY TWICE DAILY, NOTES: 599 TAKING SENNA-LAX 8.6 MG TABLET 1 TABLET ORALLY ONCE A DAY NEEDED, NOTES: 01-23-17599 TAKING AMLODIPINE BESYLATE 5 MG TABLET 1 TABLET ORALLY ONCE A DAY, NOTES: 01-23-17599 TAKING VITAMIN D 1000 UNIT TABLET 1 TABLET ORALLY ONCE A DAY, NOTES: 01-23-17599 TAKING BENADRYL 25 MG CAPSULE ORALLY NEEDED, NOTES: 01-22-17599 TAKING LOPERAMIDE A-D 2 MG TABLET 1 TAB ORALLY DAILY PRN, NOTES: 12-23-16 TAKING THEOPHYLLINE ER 300 MG CAPSULE EXTENDED RELEASE 24 HOUR ORALLY , NOTES: 01-23-17599 TAKING IPRATROPIUM-ALBUTEROL 0.5-2.5 (3) MG/3ML SOLUTION 3 ML INHALATION EVERY 6 HRS, NOTES: 01-23-17599 TAKING ADVAIR DISKUS 500-50 MCG/DOSE AEROSOL POWDER BREATH ACTIVATED 1 PUFF INHALATION TWICE A DAY, NOTES: 01-23-17599 TAKING VALSARTAN 160 MG TABLET 1 TABLET ORALLY ONCE A DAY, NOTES: 01-23-17599 TAKING BUSPIRONE HCL 10 MG TABLET 1 TABLET ORALLY TWICE A DAY, NOTES: 01-23-17599 TAKING TRAZODONE HCL 50 MG TABLET 1 TABLET AT BEDTIME NEEDED ORALLY ONCE A DAY, NOTES: 01-22-17 2100 TAKING ALBUTEROL SULFATE 2 MG TABLET 1 TABLET ORALLY BID, NOTES: 01-23-17 06 TAKING TRAMADOL HCL 50 MG TABLET 1-2 ORALLY EVERY 8 HRS PRN PAIN MDD=6, NOTES: 01-23-17 06 NOT-TAKING BENAZEPRIL HCL 20 MG TABLET 1 TABLET ORALLY ONCE A DAY NOT-TAKING RANITIDINE HCL 300 MG CAPSULE 1 CAPSULE AT BEDTIME ORALLY TWICE A DAY NOT-TAKING DULERA 200-5 MCG/ACT AEROSOL 2 PUFFS INHALATION TWICE A DAY NOT-TAKING TYLENOL EXTRA STRENGTH 500 MG TABLET 2 TABLETS NEEDED ORALLY EVERY 4- 6 HRS NEEDED NOT-TAKING TERBUTALINE SULFATE 5 MG TABLET 1 TABLET ORALLY EVERY 6 HRS, NOTES: 08/08/16 0500 NOT-TAKING XANAX 1 MG TABLET 1 TABLET ORALLY TWICE A DAY NOT-TAKING OXYCODONE HCL 5 MG TABLET 1 TABLET ORALLY EVERY 8 HRS MEDICATION LIST REVIEWED AND RECONCILED WITH THE PATIENT PAST MEDICAL HISTORY GERD COPD-04/14/2014 FEV1 2.3L (66%)/RATIO 78%//EMPHYSEMA RML SCARRING BY 01/2014 CT CHEST 06/23 TRAUMATIC PNEUMOTHORAX HYPERTENSION-07/2009 NORMAL DOBUTAMINE NUCLEAR STRESS, LVEF 67%-SLICK CHRONIC VENTRAL INCISIONAL HERNIA WITH DEHISCENCE SINCE 03/2013 CHRONIC HEPATITIS C BLOOD TRANSFUSION, FAILED ? IFN RX IN 2002 IN [place] GENOTYPE 1A STAGE F1-2 L HIP OA OSTEOPOROSIS ANXIETY DISORDER-05/2004 NORMAL MRI BRAIN C IAC PROTOCOL H/O ? SBO 03/2013 S/P SURGICAL REPAIR BY DR. ZAIRE BARTH WITH SECONDARY CHRONIC VENTRAL HERNIA NICOTINE ADDICTION-10 CIGS DAILY FROM 36 YO (STARTED P ) HISTORY CHRONIC STEROID USE FOR ASTHMA WEANED OFF 2002-PATIENT ON PREDNISONE 50 TID X 25-30 YEARS POUND SECONDARY WEIGHT LOSS LUMBAR DJD S/P EPIDURALS 12/2010 [facility] PC L4 COMPRESSION BY 11/2013 CT CHEST LLL LUNG NODULES FIRST SEEN 05/25/2013 CT CHEST HISTORY OF ALCOHOL ABUSE HEPATITIS C LIVER ULTRASOUND SHOWS MIDLINE ABNORMALITY WITH HYPOECHOIC AREA OF FIBROSIS AND LIVER SHOWS NO MASSES ALLERGIES DUST: RASH: ALLERGY SURGICAL HISTORY BOWEL PERFORATION HOSPITALIZED AT [facility] 2012 RIGHT FEMORAL NECK FRACTURE STATUS POST ORIF BY DR. ELMA DOUGHERTY 2013 TRACHEOSTOMY HOSPITALIZATION/MAJOR DIAGNOSTIC PROCEDURE ABOVE VITAL SIGNS WT 185 LBS, HT 69 IN, BMI 27.32 INDEX, BP 152/84 MM HG, HR 68 /MIN, RR 18 /MIN, TEMP 97.7 F, OXYGEN SAT % 100%, NA INITIALS SC 09:16, REVIEWED BY: TAMMI. ASSESSMENTS SPONDYLOSIS WITHOUT MYELOPATHY OR RADICULOPATHY, LUMBAR REGION - M47.816 (PRIMARY) SPONDYLOSIS WITHOUT MYELOPATHY OR RADICULOPATHY, LUMBOSACRAL REGION - M47.817 PROCEDURES PN LUMBAR FACET BLOCK THERAPEUTIC PRE PROCEDURE DIAGNOSIS LUMBAR SPONDYLOSIS, LUMBOSACRAL SPONDYLOSIS POST PROCEDURE DIAGNOSIS LUMBAR SPONDYLOSIS, LUMBOSACRAL SPONDYLOSIS PROCEDURE BILATERAL L4-L5 AND BILATERAL L5-S1 LUMBAR FACET THERAPEUTIC BLOCK SURGEON DR. JACE BROWN UNIVERSITY LECTURER NONE ANESTHESIA LOCAL PRE PROCEDURE NOTE THE PATIENT HAS A HISTORY OF CHRONIC LOW BACK PAIN. I EVALUATE THE PATIENT AND REVIEWED THE CHART. I WENT OVER THE RISKS, ALTERNATIVES, AND BENEFITS ASSOCIATED WITH THIS PROCEDURE. THE PATIENT WOULD LIKE TO PROCEED AND GIVE CONSENT TO PERFORMED THE PROCEDURE. THE PATIENT DENIES UNEXPLAINABLE WEIGHT LOSS, FEVER, CHILLS, OR NEW CHANGES IN URINARY OR BOWEL CONTROL DESCRIPTION OF PROCEDURE THE PATIENT WAS BROUGHT TO THE PROCEDURE ROOM AND PLACED IN THE PRONE POSITION. THE LUMBOSACRAL AREA WAS CLEANED WITH CHLORAPREP SOLUTION AND DRAPED ASEPTICALLY. THE PROCEDURE WAS DONE UNDER STERILE CONDITIONS. I CHECKED LATERALITY AND THE LEVEL WHERE THE PROCEDURE WAS GOING TO BE PERFORMED WITH THE PATIENT AND THE SUPPORTING STAFF AT THE MOMENT OF THE TIME OUT IN THE PROCEDURE ROOM. UNDER FLUOROSCOPIC GUIDANCE, THE TARGET POINT WAS SELECTED AT THE RIGHT AND LEFT L4-L5 AND RIGHT AND LEFT L5-S1 FACET JOINT. TARGET POINT WAS SELECTED AFTER LATERAL ROTATION AND TILT OF THE MAGNIFIER OF THE C-ARM. LIDOCAINE 0.5% WAS USED TO NUMB THE SKIN AND THE SUBCUTANEOUS TISSUE BELOW IT. SPINAL NEEDLES, 22-GAUGE, WERE ADVANCED UNDER FLUOROSCOPIC GUIDANCE AND FOLLOWING PATIENT FEEDBACK UNTIL THE TARGETS WERE TOUCHED. THE POSITION OF THE NEEDLES WAS VERIFIED WITH AP AND LATERAL VIEWS. AFTER PROPER POSITION OF THE NEEDLES WAS ACHIEVED, ISOVUE-M DYE 30% 0.1 ML WAS INJECTED SHOWING ADEQUATE SPREAD OF THE DYE. THEN A SOLUTION OF 1.9 ML OF BUPIVACAINE 0.125% OF KENALOG 10 MG WAS INJECTED AT EACH SITE. THERE WAS NO EVIDENCE OF BLOOD, PARESTHESIA OR CEREBROSPINAL FLUID DURING THE PROCEDURE. THE PATIENT WAS SENT TO THE RECOVERY ROOM. THE PATIENT WAS MOVING THE EXTREMITIES AND DOING WELL. THERE WAS NO COMPLICATION DURING THE PROCEDURE. FLUOROSCOPY TIME WAS 22 SECONDS POST PROCEDURE NOTE THE PATIENT WILL BE SEEN IN A FOLLOW UP IN THE NEXT FEW WEEKS. INSTRUCTIONS WERE GIVEN, QUESTIONS WERE ANSWERED, AND THE PATIENT EXPRESSED UNDERSTANDING AND AGREES WITH THE PLAN. I, ABHISHEK YANG, DOCUMENTED THE ABOVE INFORMATION ACTING A SCRIBE FOR DR. BROWN. I HAVE REVIEWED THE ABOVE DOCUMENT, WRITTEN BY ABHISHEK MAJANOIBYovani AND I VERIFY THAT IT IS ACCURATE DIAGNOSTIC IMAGING [facility] FACET BLOCK (PAIN)[id number] PROCEDURE CODES 40082 INJ PARAVERT F JNT L/S 1 LEV 16194 INJ PARAVERT F JNT L/S 2 LEV 6045F RADXPS IN END [id number] PXD DISPOSITION & COMMUNICATION FOLLOW UP 3 WEEKS ELECTRONICALLY SIGNED BY JACE BROWN MD ON 02/01/2017 AT 10:10 PM EDT DISCLAIMER : THIS IS A VISIT SUMMARY EXTRACTED FROM THE [employer] CHART. IT IS NOT A COPY OF THE [employer] PROGRESS NOTE. MTDD
== END ==
LOC: M PAIN 10:20
PROVIDERS: ATTEND Anesthesiology
DX: G89.29 Other chronic pain (principal); M47.816 Spondylosis without myelopathy or radiculopathy, lumbar region; M47.817 Spondylosis without myelopathy or radiculopathy, lumbosacral region; M54.5 Low back pain; Z79.891 Long term (current) use of opiate analgesic; Z79.899 Other long term (current) drug therapy; Z91.048 Other nonmedicinal substance allergy status
CPT/HCPCS: 64493; 64494; J3301; Q9967

== ENCOUNTER → 2017-04-08 | Outpatient (CLI) | payer MEDICARE ==
[~2017-04-08] MED LIST changes: -BUPIVACAINE HCL 0.25% 30 ML VIAL As Ordered ONE; -ISOVUE-M 300 61% 15ML VIAL (Q9967) As Ordered ONE; -LIDOCAINE 1% SDV INJ 30 ML VIAL As Ordered ONE; -TRIAMCINOLONE ACETONIDE SUSP 40 MG/ML VIAL (J3301) As Ordered ONE; -diazePAM 5 MG TAB As Ordered ONE; -oxyCODONE 5MG TAB As Ordered ONE
--- NOTE | 2017-04-09 00:41 | ECWPNPC ---
PATIENT NAME: CARLEEN JARRETT : 1955 GENDER: MALE VISIT DATE: 04/08/2017 DISCHARGE DATE: 04/08/17 1211 VISIT LOCKED DATE TIME: PHYSICIAN: TRACEE MAHAN RESOURCE: TRACEE MAHAN REASON FOR APPOINTMENT 1. POST PROCEDURE HISTORY OF PRESENT ILLNESS HISTORY OF PRESENT ILLNESS: HERE FOR POST PROCEDURE F/U.HAD BILATERL L4/5-L5/S1 LUMBAR FACET,THERAPEUTIC ON 01-23-17.CHIEF AREA OF PAIN IS LEFT HIP AND RIGHT SHOULDER.REPORTS >50% PERCENT IMPROVEMENT IN LOW BACK PAIN SINCE PROCEDURE THAT CONTINUES TODAY.HAS RESPONDED TO LEFT HIP GREATER TROCHANTERIC BURSAL INJECTION .RATING PAIN VAS 7/10. PAIN THE PATIENT DESCRIBES THE PAIN... FALL RISK SCREENING: SCREENING :NO FALLS IN THE PAST YEAR CURRENT MEDICATIONS TAKING OXYGEN KIT 2.0 LITERS ORALLY DAILY, NOTES: NONE TAKING IPRATROPIUM BROMIDE 0.02 % SOLUTION ONE APPLICATION INHALATION VIA NEBULIZER TAKING CANE MISCELLANEOUS _ DAILY TAKING WALKER GLIDE WHEELS MISCELLANEOUS _ DAILY TAKING PROAIR HFA 108 (90 BASE) MCG/ACT AEROSOL SOLUTION 2 PUFFS NEEDED INHALATION QID PRN TAKING FLOMAX 0.4 MG CAPSULE 1 CAPSULE 30 MINUTES AFTER THE SAME MEAL EACH DAY ORALLY ONCE A DAY TAKING OMEPRAZOLE 40 MG CAPSULE DELAYED RELEASE 1 CAPSULE ORALLY TWICE DAILY TAKING SENNA-LAX 8.6 MG TABLET 1 TABLET ORALLY ONCE A DAY NEEDED TAKING AMLODIPINE BESYLATE 5 MG TABLET 1 TABLET ORALLY ONCE A DAY TAKING VITAMIN D 1000 UNIT TABLET 1 TABLET ORALLY ONCE A DAY TAKING BENADRYL 25 MG CAPSULE ORALLY NEEDED TAKING LOPERAMIDE A-D 2 MG TABLET 1 TAB ORALLY DAILY PRN TAKING IPRATROPIUM-ALBUTEROL 0.5-2.5 (3) MG/3ML SOLUTION 3 ML INHALATION EVERY 6 HRS TAKING ADVAIR DISKUS 500-50 MCG/DOSE AEROSOL POWDER BREATH ACTIVATED 1 PUFF INHALATION TWICE A DAY TAKING VALSARTAN 160 MG TABLET 1 TABLET ORALLY ONCE A DAY TAKING BUSPIRONE HCL 10 MG TABLET 1 TABLET ORALLY TWICE A DAY TAKING TRAZODONE HCL 50 MG TABLET 1 TABLET AT BEDTIME NEEDED ORALLY ONCE A DAY TAKING ALBUTEROL SULFATE 2 MG TABLET 1 TABLET ORALLY BID TAKING TRAMADOL HCL 50 MG TABLET 1-2 ORALLY EVERY 8 HRS PRN PAIN MDD=6 NOT-TAKING THEOPHYLLINE ER 300 MG CAPSULE EXTENDED RELEASE 24 HOUR ORALLY NOT-TAKING BENAZEPRIL HCL 20 MG TABLET 1 TABLET ORALLY ONCE A DAY NOT-TAKING RANITIDINE HCL 300 MG CAPSULE 1 CAPSULE AT BEDTIME ORALLY TWICE A DAY NOT-TAKING DULERA 200-5 MCG/ACT AEROSOL 2 PUFFS INHALATION TWICE A DAY NOT-TAKING TYLENOL EXTRA STRENGTH 500 MG TABLET 2 TABLETS NEEDED ORALLY EVERY 4- 6 HRS NEEDED NOT-TAKING TERBUTALINE SULFATE 5 MG TABLET 1 TABLET ORALLY EVERY 6 HRS, NOTES: 08/08/16 0500 NOT-TAKING XANAX 1 MG TABLET 1 TABLET ORALLY TWICE A DAY NOT-TAKING OXYCODONE HCL 5 MG TABLET 1 TABLET ORALLY EVERY 8 HRS MEDICATION LIST REVIEWED AND RECONCILED WITH THE PATIENT PAST MEDICAL HISTORY GERD COPD-04/14/2014 FEV1 2.3L (66%)/RATIO 78%//EMPHYSEMA RML SCARRING BY 01/2014 CT CHEST 06/23 TRAUMATIC PNEUMOTHORAX HYPERTENSION-07/2009 NORMAL DOBUTAMINE NUCLEAR STRESS, LVEF 67%-SLICK CHRONIC VENTRAL INCISIONAL HERNIA WITH DEHISCENCE SINCE 03/2013 CHRONIC HEPATITIS C BLOOD TRANSFUSION, FAILED ? IFN RX IN 2002 IN [place] GENOTYPE 1A STAGE F1-2 L HIP OA OSTEOPOROSIS ANXIETY DISORDER-05/2004 NORMAL MRI BRAIN C IAC PROTOCOL H/O ? SBO 03/2013 S/P SURGICAL REPAIR BY DR. ZAIRE BARTH WITH SECONDARY CHRONIC VENTRAL HERNIA NICOTINE ADDICTION-10 CIGS DAILY FROM 36 YO (STARTED P ) HISTORY CHRONIC STEROID USE FOR ASTHMA WEANED OFF 2002-PATIENT ON PREDNISONE 50 TID X 25-30 YEARS POUND SECONDARY WEIGHT LOSS LUMBAR DJD S/P EPIDURALS 12/2010 [facility] PC L4 COMPRESSION BY 11/2013 CT CHEST LLL LUNG NODULES FIRST SEEN 05/25/2013 CT CHEST HISTORY OF ALCOHOL ABUSE HEPATITIS C LIVER ULTRASOUND SHOWS MIDLINE ABNORMALITY WITH HYPOECHOIC AREA OF FIBROSIS AND LIVER SHOWS NO MASSES ALLERGIES DUST: RASH: ALLERGY SOCIAL HISTORY GENERAL: TOBACCO USE ARE YOU A:FORMER SMOKER HOW LONG HAS IT BEEN SINCE YOU LAST SMOKED?3-6 MONTHS RECREATIONAL DRUG USE DRUG USE?NO UATSDIN [id number] CONFUCIANIST LANGUAGE LANGUAGES SPOKEN:IRAQI LEARNING BARRIERS / SPECIAL NEEDS BARRIERS TO LEARNING?NO HEARING IMPAIRED?NO VISION IMPAIRED?YES GLASSES FOR READING COGNITIVELY IMPAIRED?NO READINESS TO LEARN?YES LEARNING PREFERENCES?NO LEARNING CAPABILITIES PRESENT?YES EMOTIONAL BARRIERS?NO SPECIAL DEVICES?YES :[facility] PFS, CLERGY, PUBLIC HEALTH REFERRALS PFS REFERRAL NEEDED?NO CLERGY REFERRAL NEEDED?NO PUBLIC HEALTH REFERRAL NEEDED?NO WAS THE PROVIDER NOTIFIED OF ANY PERTINENT INFO?NO HAS THE PATIENT BEEN EDUCATED REGARDING HIS/HER PLAN OF CARE?YES HAS THE PATIENT BEEN EDUCATED REGARDING PAIN, THE RISK FOR PAIN, THE IMPORTANCE OF EFFECTIVE PAIN MANAGEMENT, AND THE PAIN ASSESSMENT PROCESS?YES PATIENT: ____. LIVES WITH [place]IN [place]-PERSONAL FRIEND.HCP IS CARLEEN JARRETT, SON, [phone] OF Nestor ELIZABETH 05/12/2013-12/23/2013, PREVIOUS WAS PATIENT OF DR. KRUGER/PATIENT WITH SON, DAUGHTER.PATIENT IS NOT DNR. REVIEW OF SYSTEMS REVIEWED BY: PROVIDER: TRACEE GARCIA . CONSTITUTIONAL: ANY CHANGE IN YOUR MEDICAL CONDITION? NO . CHILLS NO . FEVER NO . INFECTION: DO YOU HAVE NEW INFECTIONS? NO . DO YOU HAVE HISTORY OF MRSA? NO . MUSCULOSKELETAL: ANY NEW PATTERNS OF PAIN OR NUMBNESS? NO . GASTROENTEROLOGY: ANY NEW CHANGE IN BOWEL CONTROL? NO . GENITOURINARY: ANY NEW CHANGE IN BLADDER CONTROL? NO . IS THERE A CHANCE YOU COULD BE ? NO . HEMATOLOGY/LYMPH: DO YOU TAKE ANY BLOOD THINNERS? (FOR EXAMPLE- COUMADIN, PLAVIX, AGGRENOX, PLATEL, PRADAXA, OR XARELTO) NO . WHEN WAS YOUR LAST DOSE? DATE: TIME: . NEUROLOGY: HAVE YOU FALLEN IN THE PAST 6 MONTHS? YES . ANY NEW EXTREMITY NUMBNESS OR WEAKNESS? NO . CARDIOLOGY: DO YOU HAVE A PACEMAKER OR DEFIBRILLATOR? NO . RESPIRATORY: HAVE YOU BEEN SICK IN THE PAST WEEK? NO . FEVER NO . FLU LIKE SYMPTOMS? NO . COUGH NO . INTEGUMENTARY: DO YOU HAVE ANY RASHES OR OPEN SORES? NO . ALLERGIC/IMMUNO: ARE YOU ALLERGIC TO SHELLFISH OR IV DYE? NO . ANY NEW ALLERGIES? NO . PSYCHIATRIC: DO YOU HAVE THOUGHTS OF HURTING YOURSELF OR SOMEONE ELSE? NO . ARE YOU ABUSED, NEGLECTED, OR IN AN UNSAFE ENVIRONMENT? NO . ENDOCRINOLOGY: ARE YOU DIABETIC? NO . OTHER: DO YOU NEED ANY PRESCRIPTIONS? NO . IF YES, PLEASE LIST: ____ . ANY NEW PROBLEMS WITH YOUR MEDICATIONS? NO . WHEN DID YOU LAST EAT? ____ . WHEN DID YOU LAST DRINK? ____ . WHAT DID YOU LAST DRINK? ____ . NAME OF PERSON DRIVING YOU HOME? ____ . DO YOU HAVE ANY OTHER QUESTIONS OR CONCERNS NO . VITAL SIGNS WT 189 LBS, HT 69 IN, BMI 27.91 INDEX, BP 157/95 MM HG, HR 95 /MIN, RR 18 /MIN, TEMP 97.8 F, OXYGEN SAT % 96%, NA INITIALS AW 1148, REVIEWED BY: MONROE. EXAMINATION GENERAL EXAMINATION: LUNGS:LUNG SOUNDS ARE CLEAR. HEART:HEART RATE REGULAR. MUSCULOSKELETAL:*, MUSCLE STRENGTH TESTING 5/5 BILATERAL LOWER EXTREMITIESL/S SPINE-TENDERNESS.SPECIFIC LEFT HIP TENDERNESS W PALPATION.DIAGNOSTIC DATA- CT OF LEFT HIP WITHOUT CONTRAST 04-04-16-NO EVIDENCE OF FX,AVN,OR ACUTE DESTRUCTIVE BONE LESION.SPECIFIC POINT TENDERNESS OVER LUMBAR FACET L4/5-L5/S1 WITH FACET LOADING BILATERALLY. ASSESSMENTS LEFT HIP PAIN - M25.552 (PRIMARY) LUMBAR SPONDYLOSIS - M47.816 TREATMENT LEFT HIP PAIN CONTINUE TRAMADOL HCL TABLET, 50 MG, 1-2, ORALLY, EVERY 8 HRS PRN PAIN MDD=6 NOTES: LEFT TROCHANTERIC BURSAL INJECTION. PREVENTIVE MEDICINE PAIN CLINIC TEACHING: PROCEDURE TEACHING PRE-PROCEDURE TEACHING DONE AND PATIENT VERBALIZES UNDERSTANDING.. PROCEDURE CODES FA211 ESTABILISHED PATIENT [facility] CHARGE G8730 PAIN ASSESS POS TOOL F/U PLAN DOC G8427 DOC MEDS VERIFIED W/PT OR RE DISPOSITION & COMMUNICATION FOLLOW UP TWO WK POST (REASON: LEFT TROCHANTERIC BURSAL INJECTION) ELECTRONICALLY SIGNED BY RADHA GARCIA ON 04/08/2017 AT 12:59 PM EDT DISCLAIMER : THIS IS A VISIT SUMMARY EXTRACTED FROM THE [employer] CHART. IT IS NOT A COPY OF THE [employer] PROGRESS NOTE. ALEXIA
== END ==
LOC: M PAIN 11:15
PROVIDERS: ATTEND Nurse Practitioner Family
DX: M25.552 Pain in left hip (principal); M47.816 Spondylosis without myelopathy or radiculopathy, lumbar region; Z79.891 Long term (current) use of opiate analgesic; Z79.899 Other long term (current) drug therapy; Z87.891 Personal history of nicotine dependence; J30.89 Other allergic rhinitis

== ENCOUNTER → 2017-08-17 | Outpatient (CLI) | payer MEDICARE | LOC: M PAIN 09:15 | DX: M51.26 Other intervertebral disc displacement, lumbar region (principal); M25.552 Pain in left hip; K21.9 Gastro-esophageal reflux disease without esophagitis; J44.9 Chronic obstructive pulmonary disease, unspecified; I10 Essential (primary) hypertension; K43.9 Ventral hernia without obstruction or gangrene; B18.2 Chronic viral hepatitis C; M16.12 Unilateral primary osteoarthritis, left hip; M85.80 Other specified disorders of bone density and structure, unspecified site; F41.9 Anxiety disorder, unspecified; F10.10 Alcohol abuse, uncomplicated; J30.89 Other allergic rhinitis; I49.9 Cardiac arrhythmia, unspecified; Z79.01 Long term (current) use of anticoagulants; Z79.891 Long term (current) use of opiate analgesic; Z79.899 Other long term (current) drug therapy; Z87.891 Personal history of nicotine dependence | CPT/HCPCS: G0463 ==

== ENCOUNTER → 2018-01-08 | Outpatient (CLI) | payer MEDICARE | LOC: M PAIN 09:45 | DX: M79.1 Myalgia (principal); M47.897 Other spondylosis, lumbosacral region; G89.29 Other chronic pain; J44.9 Chronic obstructive pulmonary disease, unspecified; I10 Essential (primary) hypertension; K43.2 Incisional hernia without obstruction or gangrene; F41.9 Anxiety disorder, unspecified; M81.0 Age-related osteoporosis without current pathological fracture; M16.12 Unilateral primary osteoarthritis, left hip; Z79.01 Long term (current) use of anticoagulants; Z79.899 Other long term (current) drug therapy; Z86.59 Personal history of other mental and behavioral disorders; Z86.19 Personal history of other infectious and parasitic diseases; Z87.891 Personal history of nicotine dependence | CPT/HCPCS: G0463 ==

== ENCOUNTER → 2018-01-25 | Outpatient (CLI) | payer MEDICARE ==
[~2018-01-25] MED LIST changes: -/ESCI10TA OR; -ADVI200C PO; -ALBU83IN NEB; -ALBUTEROL INH; -ALPR2TAB3 OR; -AMLO5TAB OR; -AMLO5TAB2 PO; -ATEN50TA2 PO; -ATROVENT0.02% INH; -BENA20TA PO; +BUPIVACAINE HCL 0.25% 10 ML VIAL As Ordered; +BUPIVACAINE HCL 0.25% 30 ML VIAL As Ordered; -CLAR5CHW PO; -IBUP200C10 PO; -IBUP600T OR; -IPRASOL4 IN; -KLOR10TA OR; -LISI10TA4 OR; -OMEP20TA7 OR; -PROAAER10 IN; -PROAIR INH; -PULM0.5S IN; -SENN18TA PO; -SYMB16INH INH; -TRAM50TA2 OR; -TRAM50TA2 PO; +TRIAMCINOLONE ACETONIDE SUSP 40 MG/ML VIAL (J3301) As Ordered; -VICO5TAB OR; -VITA200016 PO; -[UNRECOGNIZED DRUG - CODE] OR; -[UNRECOGNIZED DRUG - CODE] PO; -alleve PO
== END ==
LOC: M PAIN 14:45
DX: G89.29 Other chronic pain (principal); M79.1 Myalgia; M54.5 Low back pain; K21.9 Gastro-esophageal reflux disease without esophagitis; H44.9 Unspecified disorder of globe; I10 Essential (primary) hypertension; K43.2 Incisional hernia without obstruction or gangrene; M16.12 Unilateral primary osteoarthritis, left hip; M81.0 Age-related osteoporosis without current pathological fracture; F41.9 Anxiety disorder, unspecified; J30.89 Other allergic rhinitis; Z79.01 Long term (current) use of anticoagulants; Z79.899 Other long term (current) drug therapy; Z86.19 Personal history of other infectious and parasitic diseases; Z86.59 Personal history of other mental and behavioral disorders
CPT/HCPCS: J3301

== ENCOUNTER 2018-02-12 17:30 | Emergency (ER) | payer MEDICARE ==
[2018-02-12] MEDS: ALBUTEROL SULFATE 2.5 MG/0.5 ML INH NEB SOLN NEB ×2 (17:59→20:26)
[2018-02-12 18:48] LABS: BASO # 0.1 10^3/uL (0.0-0.2); BASO % 0.4 % (0.0-1.0); EOS # 0.2 10^3/uL (0.0-0.50); EOS % 1.5 % (0.0-3.0); HEMATOCRIT 42.3 % (42.0-52.0); HEMOGLOBIN 13.9 g/dl (13.5-17.5); IMMATURE GRANULOCYTE % 0.5 % (0-3.0); LYMPH # 2.6 10^3/uL (1.5-4.5); LYMPH % 19.2 % (24.0-44.0); MEAN CORPUSCULAR HGB CONC 32.9 g/dl (32.0-36.5); MEAN CORPUSCULAR VOLUME 94.4 fl (80.0-96.0); MONO # 0.8 10^3/uL (0.0-0.8); MONO % 5.8 % (0.0-5.0); NEUTROPHILS # 9.9 10^3/uL (1.8-7.7); NEUTROPHILS % 72.6 % (36.0-66.0); PLATELET COUNT, AUTOMATED 182 10^3/uL (150-450); RED BLOOD COUNT 4.48 10^6/uL (4.30-6.10); RED CELL DISTRIBUTION WIDTH 13.2 % (11.5-14.5); WHITE BLOOD COUNT 13.6 10^3/uL (4.0-10.0)
[2018-02-12 19:07] LABS: ANION GAP 4 MEQ/L (8-16); BLOOD UREA NITROGEN 14 MG/DL (7-18); CALCIUM LEVEL 9.9 MG/DL (8.8-10.2); CARBON DIOXIDE LEVEL 30 MEQ/L (21-32); CHLORIDE LEVEL 107 MEQ/L (98-107); CPK CREATINE PHOSPHOKINASE 85 U/L (39-308); CREATININE FOR GFR 0.75 MG/DL (0.70-1.30); GLOMERULAR FILTRATION RATE > 60.0 (>49); GLUCOSE, FASTING 95 MG/DL (70-100); POTASSIUM SERUM 4.1 MEQ/L (3.5-5.1); SODIUM LEVEL 141 MEQ/L (136-145); TROPONIN I < 0.02 NG/ML (< 0.10)
[2018-02-12 19:08] LABS: CK-MB VALUE MASS 2.3 NG/ML (<3.6)
[2018-02-12] MEDS: dexameTHASONE 20 MG/5 ML VIAL (J1100) IV (20:15)
== END 2018-02-12 21:56 | disposition home or self-care (01) ==
LOC: M ED 17:30
DX: J44.1 Chronic obstructive pulmonary disease with (acute) exacerbation (principal); I48.91 Unspecified atrial fibrillation; J44.9 Chronic obstructive pulmonary disease, unspecified; K21.9 Gastro-esophageal reflux disease without esophagitis; N40.0 Benign prostatic hyperplasia without lower urinary tract symptoms; Z87.891 Personal history of nicotine dependence; Z79.899 Other long term (current) drug therapy
CPT/HCPCS: J1100

== ENCOUNTER → 2018-02-16 | Outpatient (CLI) | payer MEDICARE | LOC: M PAIN 13:30 | DX: M79.1 Myalgia (principal); M47.897 Other spondylosis, lumbosacral region; K21.9 Gastro-esophageal reflux disease without esophagitis; J44.9 Chronic obstructive pulmonary disease, unspecified; K43.2 Incisional hernia without obstruction or gangrene; M16.12 Unilateral primary osteoarthritis, left hip; F41.9 Anxiety disorder, unspecified; E11.9 Type 2 diabetes mellitus without complications; Z79.01 Long term (current) use of anticoagulants; Z79.899 Other long term (current) drug therapy; Z87.891 Personal history of nicotine dependence; Z86.59 Personal history of other mental and behavioral disorders; M85.80 Other specified disorders of bone density and structure, unspecified site; Z86.19 Personal history of other infectious and parasitic diseases | CPT/HCPCS: G0463 ==

== ENCOUNTER → 2018-03-31 | Outpatient (CLI) | payer MEDICARE | LOC: M PAIN 11:00 | DX: M79.1 Myalgia (principal); M47.897 Other spondylosis, lumbosacral region; K21.9 Gastro-esophageal reflux disease without esophagitis; J44.9 Chronic obstructive pulmonary disease, unspecified; I10 Essential (primary) hypertension; M16.12 Unilateral primary osteoarthritis, left hip; M81.0 Age-related osteoporosis without current pathological fracture; F41.9 Anxiety disorder, unspecified; B18.2 Chronic viral hepatitis C; Z99.81 Dependence on supplemental oxygen; M51.36 Other intervertebral disc degeneration, lumbar region; Z91.048 Other nonmedicinal substance allergy status; Z79.01 Long term (current) use of anticoagulants; Z79.891 Long term (current) use of opiate analgesic; Z79.899 Other long term (current) drug therapy; Z87.891 Personal history of nicotine dependence | CPT/HCPCS: G0463 ==

== ENCOUNTER 2019-03-27 19:16 | Emergency (ER) | payer MEDICARE ==
[~2019-03-27] VITALS: Ht 180.3 cm; Wt 68.2 kg
[~2019-03-27 19:16] MED LIST changes: +ADVI1CAP2 PO; +ALBU83IN NEB; +ALBUTEROL INH; +ALPR2TAB3 OR; +AMLO5TAB OR; +AMLO5TAB6 PO; +ATEN50TA2 PO; +ATROVENT0.02% INH; +BENA20TA PO; -BUPIVACAINE HCL 0.25% 10 ML VIAL As Ordered; -BUPIVACAINE HCL 0.25% 30 ML VIAL As Ordered; +BUSP10TA; +CART180C3; +CLAR5CHW PO; +ELIQ5TAB; +HYDR-3713; +IBUP200C25 PO; +IBUP600T OR; +IPRA0.00 IN; +KLOR10TA OR; +LEXA1TAB OR; +LISI10TA4 OR; +OMEP20TA7 OR; +OMEP40CA2; +PRED20TA PO; +PROAAER10 IN; +PROAIR INH; +PROP325C11; +PULM0.5S IN; +SENN18TA PO; +SYMB16INH INH; +TAMSULOSIN; +TRAM50TA2 OR; +TRAM50TA2 PO; +TRAZ-252; -TRIAMCINOLONE ACETONIDE SUSP 40 MG/ML VIAL (J3301) As Ordered; +VICO5TAB OR; +VITA200016 PO; +[UNRECOGNIZED DRUG - CODE] OR; +[UNRECOGNIZED DRUG - CODE] PO; +alleve PO
[2019-03-27] MEDS ORDERED: NS 1,000 ML IV ONE (20:00)
[2019-03-27 20:57] LABS: HEMATOCRIT 32.8 % (42.0-52.0); HEMOGLOBIN 10.5 g/dl (13.5-17.5); MEAN CORPUSCULAR HEMOGLOBIN 29.2 pg (27.0-33.0); MEAN CORPUSCULAR VOLUME 91.1 fl (80.0-96.0); PLATELET COUNT, AUTOMATED 333 10^3/uL (150-450); WHITE BLOOD COUNT 12.8 10^3/uL (4.0-10.0)
[2019-03-27 21:07] LABS: INR 1.41
[2019-03-27 21:08] LABS: PARTIAL THROMBOPLASTIN TIME 31.4 SECONDS (25.0-38.4)
[2019-03-27] MEDS ORDERED: MORPHINE 4 MG/ML 1ML VIAL/SYRINGE (J2270) IV ONE (21:15)
[2019-03-27 21:20] LABS: ALBUMIN 2.3 GM/DL (3.2-5.2); BILIRUBIN,DIRECT 0.2 MG/DL (0.0-0.2); BILIRUBIN,TOTAL 0.6 MG/DL (0.2-1.0); TOTAL PROTEIN 6.6 GM/DL (6.4-8.2)
[2019-03-27] MEDS ORDERED: ISOVUE-370 76% 100ML VIAL (Q9967) As Ordered ONE (21:29)
[2019-03-27 21:32] LABS: ANISOCYTOSIS 1+; ATYPICAL LYMPH 13 % (0-5); BASOPHILS 1 % (0-1); LYMPHOCYTES 12 % (16-44); METAMYELOCYTES 4 % (0-0); MONOCYTES 2 % (0-5); MYELOCYTES 2 % (0-0); NEUTROPHILS 64 % (28-66); OVALOCYTES 1+; PLATELET ESTIMATE NORMAL (NORMAL); POIKILOCYTOSIS 1+
[2019-03-27 21:33] LABS: GIANT PLATELETS 1+; POLYCHROMASIA 1+
--- NOTE | 2019-03-27 22:27 | REPVR ---
EXAM: CT Head Without Contrast EXAM DATE/TIME: 03/27/2019 9:40 PM CLINICAL HISTORY: 63 years old, male; Pain; Other: Fall; Additional info: Fall injury with head/neck pain TECHNIQUE: Imaging protocol: Computed tomography of the head without contrast. Radiation optimization: All CT scans at this facility use at least one of these dose optimization techniques: automated exposure control; mA and/or kV adjustment per patient size (includes targeted exams where dose is matched to clinical indication); or iterative reconstruction. COMPARISON: No relevant prior studies available. FINDINGS: Brain: There is minimal patchy low attenuation of deep white matter. There is mild prominence of the peripheral sulci. Ventricles: There is slight prominence of the central ventricular system. Bones/joints: Multiple metallic plates with micro-screws about the orbits, nose and zygomatic arches. There is deformity of the anterior nasal bones consistent with residua of fractures. Mild depression of the left lamina papyracea. No acute fracture. Sinuses: Visualized sinuses are unremarkable. No fluid levels. Mastoid air cells: Visualized mastoid air cells are well aerated. Soft tissues: Unremarkable. IMPRESSION: 1. Minimal chronic ischemic white matter change and mild atrophy for age. 2. Residua of multiple facial fractures with ORIF. 3. Otherwise negative noncontrast head CT. Electronically signed by: Ronak Douglas On 03/27/2019 22:27:27 PM
--- NOTE | 2019-03-27 22:34 | REPVR ---
EXAM: CT Cervical Spine Without Contrast EXAM DATE/TIME: 03/27/2019 9:40 PM CLINICAL HISTORY: 63 years old, male; Pain; Other: Fall; Additional info: Fall injury; Head/neck pain TECHNIQUE: Imaging protocol: Computed tomography images of the cervical spine without contrast. Radiation optimization: All CT scans at this facility use at least one of these dose optimization techniques: automated exposure control; mA and/or kV adjustment per patient size (includes targeted exams where dose is matched to clinical indication); or iterative reconstruction. COMPARISON: MRI-Spine,Cervical without con 03/20/2016 10:44 AM FINDINGS: Vertebrae: No acute fracture. Normal alignment. C2-C3: C2-C3, slight interspace narrowing with minimal bilateral degenerative changes in spinal or foraminal stenosis. C3-C4: Moderate interspace narrowing with slight anterolisthesis and bilateral degenerative changes, left greater than right. No spinal stenosis. There is mild right and moderate left neural foraminal stenosis. C4-C5: Slight interspace narrowing minimal posterior protrusion centrally and bilateral degenerative changes. No significant spinal or foraminal stenosis. C5-C6: Moderate interspace narrowing with minimal posterior osteophytes, greatest in the right lateral recess with bilateral degenerative changes. There is borderline spinal stenosis, greatest in the right lateral recess with moderate right and mild left neural foraminal stenosis. C6-C7: Moderate interspace narrowing with minimal posterior protrusion and paracentral osteophytes with bilateral degenerative change. There is borderline spinal stenosis and moderately severe right and mild left neural foraminal stenosis. C7-T1: Mild interspace narrowing with mild degenerative changes of apophyseal joints with mild right neural foraminal stenosis. Soft tissues: Unremarkable. Lungs: Biapical scar, right greater than left. Right apical mass is not excluded. IMPRESSION: 1. Multilevel degenerative changes with some borderline spinal stenosis and multilevel neural foraminal stenosis of varying degrees. 2. Biapical scar, right greater than left. Right apical mass is not excluded. 3. No acute fracture or subluxation. Electronically signed by: Ronak Douglas On 03/27/2019 22:34:20 PM
--- NOTE | 2019-03-27 22:50 | REPVR ---
EXAM: CT Abdomen and Pelvis With Contrast EXAM DATE/TIME: 03/27/2019 9:40 PM CLINICAL HISTORY: 63 years old, male; Abdominal pain; Localized; Lower; Additional info: Lower abdominal pain; Recent colostomy TECHNIQUE: Imaging protocol: Computed tomography of the abdomen and pelvis with intravenous contrast. Radiation optimization: All CT scans at this facility use at least one of these dose optimization techniques: automated exposure control; mA and/or kV adjustment per patient size (includes targeted exams where dose is matched to clinical indication); or iterative reconstruction. Contrast material: ISOVUE 370; Contrast volume: 100 ml; Contrast route: IV; COMPARISON: CT ABD PELVIS W/O FOL BY WIT 06/08/2015 3:52 PM FINDINGS: Lungs: Minimal bibasilar fibro-atelectatic change, greatest in the right middle lobe with minimal patchy infiltrates and multiple small nodules measuring 5 mm or less. Liver: The liver attenuation is 73 Hounsfield units and the spleen is 103 Hounsfield units. Gallbladder and bile ducts: The CBD measures 9 mm. Pancreas: Normal. No ductal dilation. Spleen: Normal. No splenomegaly. Adrenals: Normal. No mass. Kidneys and ureters: Normal. No hydronephrosis. Stomach and bowel: There is induration of left pelvic fat and a left lower quadrant colostomy at the level of the proximal sigmoid. The rectosigmoid is sutured off. Midabdominal small bowel anastomosis. Appendix: There are no changes of appendicitis. A normal appendix is not seen. Intraperitoneal space: Unremarkable. No free air. No significant fluid collection. Vasculature: There is mild calcification of the abdominal aorta with extension into the iliac arteries. Lymph nodes: Unremarkable. No enlarged lymph nodes. Bladder: Unremarkable as visualized. Reproductive: Unremarkable as visualized. Bones/joints: 3 metallic pins in the right hip extending into the right femoral head. Soft tissues: Small loculated fluid collection in the left pelvis which may reflect postoperative seroma. Abscess is not excluded and measures 1.7 x 4.3 x 2.5 cm. There may be an additional loculated collection to the right of midline in the central pelvis measuring 13 x 11 x 11 mm. Midline incision with some induration confluence, particularly the deep aspect consistent with recent surgery. [place] or fluid collection in the left lateral abdominal wall with a collection measuring up to 5.5 x 3.2 x 2.8 cm and extends caudally and medially along lateral aspect of the pelvis. Other findings: Postoperative stranding is noted in the pelvis. IMPRESSION: 1. Evidence of recent pelvic surgery with midline pelvic incision and induration of the pelvic fat with surgical clips and suture lines have left lower quadrant colostomy.. Findings are consistent with recent Foster procedure. 2. There are several loculated fluid collections about the pelvis, primarily on the left which may reflect cirrhosis. Abscess collections are not excluded. 3. Minimal bibasilar fibro-atelectatic change with minimal patchy infiltrates and multiple small nodules measuring 5 mm or less. For patients at low risk (minimal or absent history of smoking and of other known risk factors), no routine follow-up is indicated. For patients at high risk (history of smoking or of other known risk factors), consider optional CT at 12 months. (Dinah et al., Fleischner Society, 2017). 4. Dilated CBD measuring 9 mm with tapering to the ampulla. Electronically signed by: Ronak Douglas On 03/27/2019 22:50:02 PM
[2019-03-27] MEDS: GASTROGRAFIN SOLUTION 30ML PO SCH ×2 (23:06→23:08)
[2019-03-27 23:30] VITALS: BP 119/54
--- NOTE | 2019-03-27 23:38 | ED PDOC ---
Post-Departure Follow-Up Dr. Swain general surgery [place]'s request patient be discharged with copy of CT ABD/PELVIS GEOVANI HERNANDEZ Mar 27, 2019 23:38
--- NOTE | 2019-03-28 12:18 | REP ---
Left shoulder series: Three views. History: Pain after a fall. Findings: Three views of the left shoulder demonstrate normal alignment of the glenohumeral and acromioclavicular joints. There is mild diffuse osteopenia. There is mild hypertrophy at the AC joint. Periarticular soft tissues are unremarkable. No fracture or subluxation is seen. Impression: No acute abnormality. Electronically Signed by Srinivas Wilson MD 03/28/2019 07:54 A
--- NOTE | 2019-03-28 12:35 | REP ---
LEFT HIP: Two views. HISTORY: Pain after fall. FINDINGS: AP frog-leg views of the left hip demonstrate a fairly large os acetabuli superiorly above the acetabulum. There is no evidence of hip fracture or pelvic fracture. Femoral head is smooth and rounded. There is mild spurring inferiorly at the acetabular margin. Periarticular soft tissues containing dystrophic calcifications. IMPRESSION: No acute bony abnormality. Osteoarthritis. Os acetabuli. Electronically Signed by Srinivas Wilson MD 03/28/2019 01:12 P
--- NOTE | 2019-04-05 13:22 | ED PDOC ---
Post-Departure Follow-Up dr ray faxed formal report of ct c spine for fu Tayo Tavares MD Apr 05, 2019 13:22
== END 2019-03-28 00:02 | disposition home or self-care (01) ==
LOC: M ED 19:16
DX: S40.012A Contusion of left shoulder, initial encounter (principal); S70.02XA Contusion of left hip, initial encounter; X58.XXXA Exposure to other specified factors, initial encounter; Y92.89 Other specified places as the place of occurrence of the external cause; Z98.890 Other specified postprocedural states; J44.9 Chronic obstructive pulmonary disease, unspecified; Z79.899 Other long term (current) drug therapy; Z79.01 Long term (current) use of anticoagulants
CPT/HCPCS: 70450; 72125; 73030; 73502; 74177; 80047; 80076; 81001; 83605; 83690; 85025; 85610; 85730; 93041; 96361; 96374; 99285; J2270; Q9967

== ENCOUNTER 2019-09-29 11:33 | Inpatient (IN) | payer MEDICARE ==
[~2019-09-29] VITALS: Ht 180.3 cm; Wt 69.0 kg
[~2019-09-29 11:33] MED LIST changes: -BUSP10TA; +BUSP10TA PO; -ELIQ5TAB; +ELIQ5TAB PO; -IPRA0.00 IN; +IPRA0.00 INH; -OMEP40CA2; +OMEP40CA97 PO; -PROAAER10 IN; +PROAAER10 INH
[2019-09-29] MEDS ORDERED: dexameTHASONE 20 MG/5 ML VIAL (J1100) IV ONE (11:45)
[2019-09-29] MEDS ORDERED: IPRATROPIUM 0.5MG/ALBUTEROL 2.5MG INH SOL UD 3ML (DUONEB)(J7620) NEB ONE (11:45)
[2019-09-29] MEDS ORDERED: ALBUTEROL SULFATE 2.5 MG/0.5 ML INH NEB SOLN INH ONE (11:45)
[2019-09-29 12:08] LABS: BASO # 0.1 10^3/uL (0.0-0.2); BASO % 0.5 % (0.0-1.0); EOS # 0.2 10^3/uL (0.0-0.5); EOS % 0.8 % (0.0-3.0); HEMATOCRIT 45.5 % (42.0-52.0); HEMOGLOBIN 13.9 g/dl (13.5-17.5); LYMPH # 2.9 10^3/uL (1.5-5.0); LYMPH % 11.3 % (24.0-44.0); MEAN CORPUSCULAR HEMOGLOBIN 28.6 pg (27.0-33.0); MEAN CORPUSCULAR HGB CONC 30.5 g/dl (32.0-36.5); MEAN CORPUSCULAR VOLUME 93.6 fl (80.0-96.0); MONO % 7.8 % (0.0-5.0); NEUTROPHILS # 19.8 10^3/uL (1.5-8.5); NEUTROPHILS % 77.3 % (36.0-66.0); PLATELET COUNT, AUTOMATED 266 10^3/uL (150-450); RED BLOOD COUNT 4.86 10^6/uL (4.30-6.10); WHITE BLOOD COUNT 25.6 10^3/uL (4.0-10.0)
[2019-09-29 12:30] LABS: INR 0.99; PROTHROMBIN TIME 12.8 SECONDS (11.8-14.0)
[2019-09-29 12:37] LABS: INFLUENZA A AMPLIFICATION NEGATIVE (NEGATIVE); INFLUENZA B AMPLIFICATION NEGATIVE (NEGATIVE)
[2019-09-29 12:43] LABS: ALBUMIN 2.9 GM/DL (3.2-5.2); ALT/SGPT 24 U/L (12-78); BILIRUBIN,DIRECT < 0.1 MG/DL (0.0-0.2); BILIRUBIN,TOTAL 0.3 MG/DL (0.2-1.0); BLOOD UREA NITROGEN 7 MG/DL (7-18); CARBON DIOXIDE LEVEL 36 MEQ/L (21-32); CHLORIDE LEVEL 100 MEQ/L (98-107); CK-MB VALUE MASS 2.8 NG/ML (<3.6); CPK CREATINE PHOSPHOKINASE 76 U/L (39-308); CREATININE FOR GFR 0.66 MG/DL (0.70-1.30); GLOMERULAR FILTRATION RATE > 60.0 (>49); GLUCOSE, FASTING 100 MG/DL (70-100); MB/CK RELATIVE INDEX 3.68 (< OR =4); NT-PRO BNP 2884 PG/ML (<125); POTASSIUM SERUM 4.5 MEQ/L (3.5-5.1); SODIUM LEVEL 140 MEQ/L (136-145); THYROID STIMULATING HORMONE 0.321 uIU/ML (0.358-3.740); TOTAL PROTEIN 7.5 GM/DL (6.4-8.2); TROPONIN I 0.21 NG/ML (< 0.10)
[2019-09-29] MEDS ORDERED: VALS1TAB66 PO (12:44)
[2019-09-29] MEDS ORDERED: NITR0.4S14 SL (12:44)
[2019-09-29] MEDS ORDERED: AMIO200T PO (12:44)
[2019-09-29] MEDS ORDERED: TAMS1CAP17 PO (12:44)
[2019-09-29] MEDS ORDERED: DILT1CAP9 PO (12:44)
[2019-09-29] MEDS ORDERED: DULO1CAP6 PO (12:44)
--- NOTE | 2019-09-29 12:59 | REP ---
Portable chest x-ray: Single view. History: Dyspnea and cough. Comparison chest x-ray: February 12, 2018. Findings: Monitoring electrodes overlie the chest. Oxygen tubing is seen. The heart is not felt to be enlarged. Interstitial markings are increased diffusely which may reflect mild interstitial edema pattern. No pleural effusion is seen. There are old healed rib fractures bilaterally. Minimal vascular calcification is seen in the thoracic aorta. Impression: Mildly prominent interstitial markings question interstitial edema. Otherwise no acute disease. Electronically Signed by Srinivas Wilson MD 09/29/2019 01:35 P
[2019-09-29] MEDS ORDERED: FUROSEMIDE 20 MG/2 ML VIAL (J1940) IV ONE (14:00)
[2019-09-29] MEDS ORDERED: cefTRIAXone SOD 2 GM in D5W MINI-BAG PLUS 50 ML IV ONE (14:00)
--- NOTE | 2019-09-29 14:17 | REP ---
CT of the chest without IV contrast: Comparison studies are the chest CT of 01/26/2014 and the plain film portable chest earlier today. There is a diffuse "tree in bud" pattern throughout the lung carr bilaterally. This is nonspecific and can be the result of inflammation, infection or neoplasm. Additionally, there is diffuse bilateral bronchiectasis. There is a 4 mm lung nodule in the left lower lobe on image 59. There is a 9 mm lung nodule in the left lower lobe on image 81. This measured 6 mm on 01/26/2014. There is a 10 ml right lower lobe lung nodule on image 76. There are no focal infiltrates. There are no pleural effusions. There are enlarged mediastinal nodes, the largest being a precarinal node measuring 15 ml and a subcarinal node measuring 14 mm. The study is insensitive for hilar lymph node enlargement in the absence of IV contrast. There is no axillary lymph node enlargement. The unenhanced thoracic aorta is unremarkable except for occasional calcified atheroma. Cardiac size is normal. There is no pericardial effusion. The visualized upper abdominal structures are unremarkable. Impression: Diffuse interstitial pattern throughout the lung carr bilaterally, consisting of bronchiectasis as well as tree in bud pattern. This is nonspecific and could represent inflammation, infection or neoplasm. There are lung nodules as described described. There are no focal infiltrates or pleural effusions. There is mediastinal adenopathy as described. Electronically Signed by Johan Agosto MD 09/29/2019 02:09 P
[2019-09-29] MEDS ORDERED: AZITHROMYCIN INJ 500 MG, VIAL MATE ADAPTER 1 EACH in D5W 250 ML IV ONE (15:00)
[2019-09-29] MEDS ORDERED: MORPHINE 2 MG/ML 1ML VIAL (J2270) IV ONE (15:45)
[2019-09-29] MEDS ORDERED: METF500T13 PO (18:11)
[2019-09-29] MEDS ORDERED: ALPR0.5T6 PO (18:11)
--- NOTE | 2019-09-29 18:59 | ECGEPIP ---
[facility] - ED Test Date: 2019-09-29 Pat Name: CARLEEN JARRETT Department: Room: - Gender: Male [employer]: JB : 1955 Requested By: GEOVANI Coker Order Number: [id number] Reading MD: Bren Tristan Measurements Intervals [place] [facility] Rate: 103 P: 70 NV: 155 QRS: -16 QRSD: 100 T: 64 QT: 339 QTc: 444 Interpretive Statements SINUS TACHYCARDIA ABNORMAL RHYTHM ECG NSTTW abnormalities COMPARED 02/12/18 Electronically Signed on 09-29-2019 18:58:56 EDT by Bren Tristan
[2019-09-29] MEDS ORDERED: FORMOTEROL FUMARATE 20 MCG/2 ML INHALATION SOLUTION (PERFOROMIST) INH SCH (20:00)
[2019-09-29] MEDS: ALBUTEROL SULFATE 2.5 MG/0.5 ML INH NEB SOLN NEB SCH ×2 (20:27→23:26)
[2019-09-29] MEDS: methylPREDNISolone INJ 125 MG/2 ML VIAL (J2930) IV SCH (20:27)
[2019-09-29] MEDS: BUDESONIDE 0.5 MG/2 ML INHALATION SUSPENSION INH SCH (20:27)
[2019-09-29] MEDS ORDERED: GLUCOSE 4 GM CHEW TABLET PO PRN (21:00)
[2019-09-29] MEDS ORDERED: GLUCAGON FOR INJ 1 MG VIAL (J1610) SC PRN (21:00)
[2019-09-29] MEDS ORDERED: DEXTROSE 50% 50 ML SYRINGE IV PRN (21:00)
[2019-09-29] MEDS: HumaLOG INSULIN (NovoLOG) PER UNIT SC SCH (21:00)
[2019-09-29 21:30] VITALS: BP 140/64
--- NOTE | 2019-09-29 21:34 | HPEPDOC ---
General Date of Admission Sep 29, 2019 at 18:26 Date of Service: Sep 29, 2019 Chief Complaint The patient is a 64-year-old male admitted with a reason for visit of Atypical Pneumonia; Copd Exacerbation. Source: Patient, RN/, Old records History of Present Illness 64year old male with h/o child fernandez asthma, copd, home oxygen, bronchiectasis, afib, diabetes, hypertension, BPH , colostomy in place since 2018, chronic hepatits C infection, chronic back pain, GERD has been feeling sick for about 1 month with increasing cough, increasing SOB and increased phlegm production. He has been feeling the worst for the past 1 week and has been unable to eat much for the past 5 days due to SOB. Today his breathing was very bad at home and he could hardly talk so his general claims agent called the EMS and patient was brought to the ED. He also says that his colostomy has not been changed for 5 days and it is leaking. He says he does not have supplies to change it. He has a vising nu rse and a aid who come in 2 to 3 times a week to help him. He complains of low back pain and left hip pain says it is dull aching type about 6/10 in intensity with no radiation. Says the pain gets worse in the hospital and then he needs pain medications. On initial presentation to the ED he was in extremi. He was placed on CPAP in the ambulance. His blood gas showed hypoxia. Hie breathing improved after nebs, steroid and lasix. In the ED CT chest showed diffuse "tree in bud" pattern throughout the lung carr bilaterally which can be the result of inflammation, infection or neoplasm. There is diffuse bilateral bronchiectasis. 3 pulmonary nodules 4, 9 and 10 mm. There are enlarged mediasti nal nodes, the largest being a precarinal node measuring 15 mm and a subcarinal node measuring 14 mm. Patient's respiratory panel was negative. WBC was elevated at 25K. Ed provider felt that with his respiratory symptoms and CT pattern he should be evaluated for COVID. SO the pateitn was plced on isolation and appropriate test was ordered. Home Medications Scheduled Amiodarone HCl (Amiodarone HCl) 200 Mg Tablet, 200 MG PO DAILY, (Reported) Apixaban (Eliquis) 5 Mg Tab, 5 MG PO BID, (Reported) Buspirone HCl (Buspirone HCl) 10 Mg Tab, 10 MG PO BID, (Reported) 09/1700 Diltiazem Hcl (Diltiazem 24Hr ER) 360 Mg Cap.sa.24h, 360 MG PO QHS, (Reported) Duloxetine Hcl (Duloxetine HCl) 60 Mg Capsule.dr, 60 MG PO DAILY, (Reported) Ipratropium/Albuterol Sulfate (Iprat-Albut 0.5-3(2.5) mg/3 ml) 1 Michelle Michelle, 1 VIAL INH Q4H, (Reported) Metformin HCl (Metformin HCl) 500 Mg Tablet, 500 MG PO DAILY, (Reported) Omeprazole (Omeprazole) 40 Mg Cap, 40 MG PO BID, (Reported) 899/0 Tamsulosin Hcl (Tamsulosin HCl) 0.4 Mg Capsule, 0.4 MG PO DAILY, (Reported) Valsartan (Valsartan) 80 Mg Tablet, 160 MG PO DAILY, (Reported) Scheduled PRN Albuterol Sulfate (Proair Hfa) 108 Mcg/Act Aer, 2 PUFFS INH QID PRN for SHORTNESS OF BREATH, (Reported) Alprazolam (Alprazolam ER) 0.5 Mg Tab.er.24h, 0.5 MG PO DAILY PRN for ANXIETY, (Reported) Nitroglycerin (Nitroglycerin) 0.4 Mg Tab.subl, 0.4 MG SL Q5MP PRN for CHEST PAIN, (Reported) Allergies Coded Allergies: No Known Drug Allergies (Verified Allergy, Unknown, 03/27/19) Past Medical History Medical History Asthma since childhood Bronchiectasis COPD-with chronic respiratory failure EMPHYSEMA RML SCARRING Diverticulitis with diverticular perforation and abscess s/psigmoid colectomy with end colostomy at [facility] on 02/21/19 Chronic atrial fibrillation Diabetes GERD BPH Recurrent falls with rehab stay in 2019 Failure to thrive 06/2005 TRAUMATIC right PNEUMOTHORAX HYPERTENSION CHRONIC VENTRAL INCISIONAL HERNIA WITH DEHISCENCE SINCE 03/2013 CHRONIC HEPATITIS C from BLOOD TRANSFUSION, FAILED ? IFN RX IN 2002 IN [place] GENOTYPE 1A STAGE F1-2 L HIP OA OSTEOPOROSIS ANXIETY DISORDER H/O SBO 03/2013 S/P SURGICAL REPAIR BY DR. ZAIRE BARTH WITH SECONDARY CHRONIC VENTRAL HERNIA HISTORY CHRONIC STEROID USE FOR ASTHMA WEANED OFF 2002-PATIENT ON PREDNISONE 50 TID X 25-30 YEARS LUMBAR DJD S/P EPIDURALS L4 COMPRESSION BY 11/2013 CT CHEST LLL LUNG NODULES FIRST SEEN 05/25/2013 CT CHEST HISTORY OF ALCOHOL ABUSE History of nicotine addiction. LEft Hip Osteoarthritis Surgical History Sigmoid colectomy and end colostomy 2018 BOWEL PERFORATION 2012 incisional hernia repair RIGHT FEMORAL NECK FRACTURE STATUS POST ORIF 2014 Appendectomy Tacheostomy 20 years ago Family History Significant Family History: Asthma, COPD, Lung disease (father, 2 brothers, 2 sons) FATHER: , DIAGNOSED WITH HYPERTENSION, HEART DISEASE, STROKE MOTHER: , DIAGNOSED WITH COPD 2 Sons with Asthma/COPD Social History * Smoker: former Smoker Alcohol: sober Drugs: denies A-FIB/CHADSVASC A-FIB History Current/History of A-Fib/PAF?: Yes Current PO Anticoag Therapy: Yes Review of Systems Constitutional: Denies: Chills, Fever, Night Sweats Eyes: Denies: Pain, Vision change ENT: Denies: Head Aches, Ear Pain, Dysphagia Pulmonary: Reports: Dyspnea, Cough Cardiovascular: Reports: Chest Pain; Denies: Palpitations, Orthopnea, Paroxysmal Noc. Dyspnea, Lt Headedness Gastrointestinal: Denies: Nausea, Vomiting, Abdominal Pain, Diarrhea Genitourinary: Denies: Dysuria, Frequency, Incontinence, Retention Hematologic: Denies: Bruising, Bleeding Excessively Musculoskeletal: Reports: Back Pain, Joint Pain Physical Examination General Exam: Positive: Alert, Cooperative, Mild Distress Eye Exam: Positive: PERRLA, Conjunctiva & lids normal, EOMI; Negative: Sclera icteric Neck Exam: Positive: Supple; Negative: JVD, thyromegaly Chest Exam: Positive: Rhonchi, Wheezing, Diminished Heart Exam: Positive: Tachycardic, Regular Rhythm, Normal S1, Normal S2 Telemetry: Positive: Sinus, Tachycardia Abdomen Exam: Positive: Normal bowel sounds, Soft, Other (colostomy) Extremity Exam: Negative: Clubbing, Cyanosis, Edema Skin Exam: Positive: Nl turgor and temperature; Negative: Breakdown, Lesion Neuro Exam: Positive: Normal Speech, Strength at 5/5 X4 ext, Normal Tone Psych Exam: Positive: Anxiety, Memory Intact, Oriented x 3 Vital Signs Vital Signs Date Time Temp Pulse Resp B/P (MAP) Pulse Ox O2 Delivery O2 Flow Rate FiO2 09/29/19 19:50 92 09/29/19 18:20 98 09/29/19 18:13 132/62 (85) 09/29/19 17:35 Nasal Cannula 2.5 09/29/19 17:30 20 09/29/19 11:55 99.1 Laboratory Data Labs 24H Laboratory Tests 2 09/29/19 11:44: POC pH (Misc Panel) 7.365, POC Base Excess (Misc Panel) 11.0H, POC Saturated Percent O2 (Misc) 93L, POC pO2 (Misc Panel) 70.0L, POC pCO2 (Misc Panel) 63.4*H, POC HCO3 (Misc Panel) 36.2H, POC Total CO2 (Misc Panel) 38.0H 09/29/19 11:47: Immature Granulocyte % (Auto) 2.3, Neutrophils (%) (Auto) 77.3H, Lymphocytes (%) (Auto) 11.3L, Monocytes (%) (Auto) 7.8H, Eosinophils (%) (Auto) 0.8, Basophils (%) (Auto) 0.5, Neutrophils # (Auto) 19.8H, Lymphocytes # (Auto) 2.9, Monocytes # (Auto) 2.0H, Eosinophils # (Auto) 0.2, Basophils # (Auto) 0.1, Nucleated Red Blood Cells % (auto) 0.0, Prothrombin Time 12.8, Prothromb Time International Ratio 0.99, D-Dimer, Quantitative 1896H, Anion Gap 4L, Glomerular Filtration Rate > 60.0, Lactic Acid Level 1.2, Calcium Level 10.0, Total Bilirubin 0.3, Direct Bilirubin < 0.1, Aspartate Amino Transf (AST/SGOT) 31, Alanine Ami notransferase (ALT/SGPT) 24, Alkaline Phosphatase 180H, Total Creatine Kinase 76, Creatine Kinase MB 2.8, Creatine Kinase MB Relative Index 3.68, Troponin I 0.21H, YP-Udp-B-Type Natriuretic Peptide 2884H, Total Protein 7.5, Albumin 2.9L, Albumin/Globulin Ratio 0.63L, Thyroid Stimulating Hormone (TSH) 0.321L 09/29/19 11:51: Influenza Type A (RT-PCR) NEGATIVE, Influenza Type B (RT-PCR) NEGATIVE CBC/BMP Laboratory Tests 09/29/19 11:47 Microbiology Microbiology 09/29/19 Blood Culture, Received Pending 09/29/19 Blood Culture, Received Pending 09/29/19 Respiratory Virus Panel (PCR) (YOLI) - Final, Complete 09/29/19 Gram Stain - Final, Resulted 09/29/19 Sputum Culture, Resulted Pending Assessment/Plan 64year old male with h/o child fernandez asthma, copd, home oxygen, bronchiectasis, afib, diabetes, hypertension, BPH , colostomy in place since 2019, chronic hepatits C infection, chronic back pain, GERD has been feeling sick for about 1 month with increasing cough, increasing SOB and increased phlegm production. He has been feeling the worst for the past 1 week and has been unable to eat much for the past 5 days due to SOB. Today his breathing was very bad at home and he could hardly talk so his general claims agent called the EMS and patient was brought to the ED. He also says that his colostomy has not been changed for 5 days and it is leaking. He says he does not have supplies to change it. He has a vising nurse and a aid who come in 2 to 3 times a week to help him. He complains of low back pain and left hip pain says it is dull aching type about 6/10 in i ntensity with no radiation. Says the pain gets worse in the hospital and then he needs pain medications. On initial presentation to the ED he was in extremi. He was placed on CPAP in the ambulance. His blood gas showed hypoxia. Hie breathing improved after nebs, steroid and lasix. In the ED CT chest showed diffuse "tree in bud" pattern throughout the lung carr bilaterally which can be the result of inflammation, infection or neoplasm. There is diffuse bilateral bronchiectasis. 3 pulmonary nodules 4, 9 and 10 mm. There are enlarged mediastinal nodes, the largest being a precarinal node measuring 15 mm and a subcarinal node measuring 14 mm. Patient's respiratory panel was negative. WBC was elevated at 25K. Ed provider felt that with his respiratory symptoms and CT pattern he should be evaluated for COVID. SO the pateitn was plced on isolation and appropriate test was ordered. Acute Bronchiectasis flare Vs diffuse bilateral pneumonia sptum dn blood cultures sent resp panel negative, ordered Cai virus testing ordered. Isolation precautions will give zosyn and azithromycin. Exacebation of COPD-with acute on chronic respiratory failure budesonide, formoterol, albuterol, spiriva methyl pred. Elevated BNP so h/o CHF echo as [facility] had normal EF and no significant valvular defects mentioned in Dc summary. No report acually available at present. But pateint may have pulmonary hypertension and chronic right failure, May also have diastolic CHF will get new echo will give lasix iv daily Diverticulitis with diverticular perforation and abscess s/p sigmoid colectomy with end colostomy at [facility] on 02/21/19 followed by wound dehiscence on03/17/19 colostomy care Paroxysmal atrial fibrillation now in sinus tachycardia continue amiodarone, diltiazem and eliquis Diabetes stop metformin lispro sliding scale GERD PPI Plan / VTE VTE Prophylaxis Ordered?: Yes FER BROWN MD Sep 29, 2019 21:27
[2019-09-29] MEDS: PIPERACILLIN/TAZOBACTAM SOD 3.375 GM in D5W MINI-BAG PLUS 50 ML IV SCH (21:38)
[2019-09-29] MEDS: APIXABAN 5 MG TAB (ELIQUIS) PO SCH (21:39)
[2019-09-29] MEDS: diltiaZEM **CD** 180 MG CAP PO SCH (21:40)
[2019-09-29] MEDS: ACETAMINOPHEN 500 MG TAB PO SCH (21:41)
[2019-09-29 22:00] VITALS: BP 114/64
[2019-09-29 23:00] VITALS: BP 132/63
[2019-09-30] VITALS (7 sets, daily range): BP systolic 111–147; BP diastolic 56–65
[2019-09-30] MEDS: methylPREDNISolone INJ 125 MG/2 ML VIAL (J2930) IV SCH ×4 (02:03→20:50)
[2019-09-30] MEDS: PIPERACILLIN/TAZOBACTAM SOD 3.375 GM in D5W MINI-BAG PLUS 50 ML IV SCH ×4 (02:17→20:54)
[2019-09-30] MEDS ORDERED: FLUBLOK(EGG FREE)(QUAD)INFLUENZA VACC 0.5ML SYRINGE (90682)18YRS&OLDER IM SCH (04:15)
[2019-09-30] MEDS: ALBUTEROL SULFATE 2.5 MG/0.5 ML INH NEB SOLN NEB SCH ×2 (04:15→08:23)
[2019-09-30] MEDS ORDERED: PREVNAR 13 VACCINE SYRINGE (CPT CODE:90670) IM SCH (04:15)
[2019-09-30 05:07] LABS: HEMATOCRIT 40.8 % (42.0-52.0); HEMOGLOBIN 12.1 g/dl (13.5-17.5); MEAN CORPUSCULAR HEMOGLOBIN 27.1 pg (27.0-33.0); MEAN CORPUSCULAR HGB CONC 29.7 g/dl (32.0-36.5); MEAN CORPUSCULAR VOLUME 91.3 fl (80.0-96.0); PLATELET COUNT, AUTOMATED 229 10^3/uL (150-450); RED BLOOD COUNT 4.47 10^6/uL (4.30-6.10); WHITE BLOOD COUNT 10.7 10^3/uL (4.0-10.0)
[2019-09-30 05:40] LABS: ATYPICAL LYMPH 1 % (0-5); LYMPHOCYTES 11 % (16-44); METAMYELOCYTES 2 % (0-0); MONOCYTES 1 % (0-5); MYELOCYTES 2 % (0-0); NEUTROPHILS 83 % (28-66)
[2019-09-30 05:41] LABS: ANISOCYTOSIS 1+; PLATELET CLUMPS SMALL AMT; PLATELET ESTIMATE NORMAL (NORMAL)
[2019-09-30 05:47] LABS: BLOOD UREA NITROGEN 17 MG/DL (7-18); CALCIUM LEVEL 9.6 MG/DL (8.8-10.2); CARBON DIOXIDE LEVEL 37 MEQ/L (21-32); CHLORIDE LEVEL 97 MEQ/L (98-107); CREATININE FOR GFR 0.87 MG/DL (0.70-1.30); GLOMERULAR FILTRATION RATE > 60.0 (>49); GLUCOSE, FASTING 247 MG/DL (70-100); POTASSIUM SERUM 4.2 MEQ/L (3.5-5.1); SODIUM LEVEL 140 MEQ/L (136-145)
[2019-09-30 06:18] LABS: ABG O2 SATURATION 94.3 % (95.0-99.0); ABG PARTIAL PRESSURE CO2 53.9 mmHg (35.0-45.0); ABG PARTIAL PRESSURE O2 70.2 mmHg (75.0-100.0); ABG STANDARD HCO3 31.7 MEQ/L (22.0-26.0); ABG TOTAL CO2 35.7 MEQ/L (23.0-31.0); ABG pH (ARTERIAL) 7.418 UNITS (7.350-7.450)
[2019-09-30] MEDS: TIOTROPIUM INHALER/CAPSULE (SPIRIVA) INH SCH (08:23)
[2019-09-30] MEDS: BUDESONIDE 0.5 MG/2 ML INHALATION SUSPENSION INH SCH (08:23)
[2019-09-30] MEDS: KETOROLAC 30 MG/ML VIAL (J1885) IV PRN ×2 (08:46→20:53)
[2019-09-30] MEDS: FUROSEMIDE 20 MG/2 ML VIAL (J1940) IV SCH (08:49)
[2019-09-30] MEDS: HumaLOG INSULIN (NovoLOG) PER UNIT SC SCH ×4 (08:50→20:58)
[2019-09-30] MEDS: APIXABAN 5 MG TAB (ELIQUIS) PO SCH ×2 (08:52→20:53)
[2019-09-30] MEDS: OMEPRAZOLE 20 MG CAP PO SCH ×2 (08:52→17:23)
[2019-09-30] MEDS: DULoxetine 30 MG CAP (CYMBALTA) PO SCH (08:52)
[2019-09-30] MEDS: AMIODARONE 200 MG TAB (PACERONE) PO SCH (08:53)
[2019-09-30] MEDS: PANTOPRAZOLE 40MG TAB (PROTONIX) PO SCH (08:53)
[2019-09-30] MEDS: busPIRone 10 MG TAB PO SCH ×2 (08:53→17:23)
[2019-09-30] MEDS: TAMSULOSIN 0.4 MG CAP PO SCH (08:53)
[2019-09-30] MEDS: VALSARTAN 80 MG TAB (DIOVAN) PO SCH (09:08)
[2019-09-30] MEDS: ACETAMINOPHEN 500 MG TAB PO SCH ×2 (09:56→20:53)
[2019-09-30] MEDS: ALBUTEROL 90 MCG/ACT 8GM HFA INHALER INH SCH ×3 (12:19→20:45)
--- NOTE | 2019-09-30 12:28 | IPNPDOC ---
Subjective Date Seen The patient was seen on 09/30/19. Subjective Chief Complaint/HPI Says he is feeling better, breathing is a little better but bringing up a lot of phlegm. No fever or chills. Objective Physical Examination General Exam: Positive: Alert, Cooperative, Mild Distress Eye Exam: Positive: PERRLA, Conjunctiva & lids normal, EOMI; Negative: Sclera icteric Neck Exam: Positive: Supple; Negative: JVD, thyromegaly Chest Exam: Positive: Rhonchi, Wheezing, Diminished Heart Exam: Positive: Rate Normal, Regular Rhythm, Normal S1, Normal S2; Negative: Irregular Rhythm, Gallops, Murmurs, Rubs Telemetry: Positive: Sinus, Tachycardia Abdomen Exam: Positive: Normal bowel sounds, Soft, Other (colostomy) Extremity Exam: Negative: Clubbing, Cyanosis, Edema Skin Exam: Positive: Nl turgor and temperature; Negative: Breakdown, Lesion Neuro Exam: Positive: Normal Speech, Strength at 5/5 X4 ext, Normal Tone Psych Exam: Positive: Anxiety, Memory Intact, Oriented x 3 Assessment /Plan Assessment 64year old male with h/o child fernandez asthma, copd, home oxygen, bronchiectasis, afib, diabetes, hypertension, BPH , colostomy in place since 2019, chronic hepatits C infection, chronic back pain, GERD has been feeling sick for about 1 month with increasing cough, increasing SOB and increased phlegm production. He has been feeling the worst for the past 1 week and has been unable to eat much for the past 5 days due to SOB. Today his breathing was very bad at home and he could hardly talk so his housekeeper home called the EMS and patient was brought to the ED. He also says that his colostomy has not been changed for 5 days and it is leaking. He says he does not have supplies to change it. He has a vising nurse and a aid who come in 2 to 3 times a week to help him. He complains of low back pain and left hip pain says it is dull aching type about 6/10 in intensity with no radiation. Says the pain gets worse in the hospital and then he needs pain medications. On initial presentation to the ED he was in extremi. He was placed on CPAP in the ambulance. His blood gas showed hypoxia. Hie breathing improved after nebs, steroid and lasix. In the ED CT chest showed diffuse "tree in bud" pattern throughout the lung carr bilaterally which can be the result of inflammation, infection or neoplasm. There is diffuse bilateral bronchiectasis. 3 pulmonary nodules 4, 9 and 10 mm. There are enlarged mediastinal nodes, the largest being a precarinal node measuring 15 mm and a subcarinal node measuring 14 mm. Patient's respiratory panel was negative. WBC was elevated at 25K. Ed provider felt that with his respiratory symptoms and CT pattern he should be evaluated for COVID. SO the pateitn was plced on isolation and appropriate test was ordered. Acute Bronchiectasis flare Vs diffuse bilateral pneumonia sptum dn blood cultures sent resp panel negative, ordered Cai virus testing ordered. Isolation precautions will give zosyn and azithromycin. Exacebation of COPD-with acute on chronic respiratory failure budesonide, formoterol, albuterol, spiriva methyl pred. Elevated BNP so h/o CHF echo as [facility] had normal EF and no significant valvular defects mentioned in Dc summary. No report acually available at present. But pateint may have pulmonary hypertension and chronic right failure, May also have diastolic CHF will get new echo will give lasix iv daily Diverticulitis with diverticular perforation and abscess s/p sigmoid colectomy with end colostomy at [facility] on 02/21/19 followed by wound dehiscence on03/17/19 colostomy care Paroxysmal atrial fibrillation now in sinus tachycardia continue amiodarone, diltiazem and eliquis Diabetes stop metformin lispro sliding scale GERD PPI Plan/VTE VTE Prophylaxis Ordered?: Yes VS, I&O, 24H, Fishbone Vital Signs/I&O Vital Signs Date Time Temp Pulse Resp B/P (MAP) Pulse Ox O2 Delivery O2 Flow Rate FiO2 09/30/19 09:08 147/65 09/30/19 08:00 1.0 09/30/19 08:00 96.8 70 38 95 Nasal Cannula I&O- Last 24 Hours up to 6 AM 09/30/19 06:00 Intake Total 725 ml Output Total 200 ml Balance 525 ml Laboratory Data 24H LABS Laboratory Tests 2 09/29/19 21:36: Bedside Glucose (Misc Panel) 179H 09/30/19 04:57: Neutrophils (%) (Auto) , Nucleated Red Blood Cells % (auto) 0.0, Neutrophils 83H, Lymphocytes (Manual) 11L, Monocytes (Manual) 1, Metamyelocytes 2H, Myelocytes 2H, Atypical Lymphocytes 1, Hypochromasia , Anisocytosis 1+, Platelet Estimate NORMAL, Clumped Platelets SMALL AMT, Anion Gap 6L, Glomerular Filtration Rate > 60.0, Calcium Level 9.6 09/30/19 06:05: Blood Gas Bicarbonate Standard 31.7H, Arterial Blood pH 7.418, Arterial Blood Partial Pressure CO2 53.9H, Arterial Blood Partial Pressure O2 70.2L, Arterial Blood Total CO2 35.7H, Arterial Blood HCO3 34.0H, Arterial Blood Base Excess 8.0H, Arterial Blood Oxygen Saturation 94.3L 09/30/19 11:41: Bedside Glucose (Misc Panel) 223H CBC/BMP Laboratory Tests 09/30/19 04:57 Microbiology Microbiology 09/30/19 Respiratory Virus (PCR), Received Pending 09/29/19 Blood Culture - Preliminary, Resulted No growth after 24 hours . All specim... 09/29/19 Blood Culture - Preliminary, Resulted No growth after 24 hours . All specim... 09/29/19 Respiratory Virus Panel (PCR) (YOLI) - Final, Complete 09/29/19 Gram Stain - Final, Resulted 09/29/19 Sputum Culture, Resulted Pending 09/29/19 Virus Detection (PCR), Received Pending FER BROWN MD Sep 30, 2019 12:28
[2019-09-30] MEDS: AZITHROMYCIN INJ 500 MG, VIAL MATE ADAPTER 1 EACH in D5W 250 ML IV SCH (17:22)
--- NOTE | 2019-09-30 19:06 | ECHO ---
DATE OF PROCEDURE: 09/30/2019 AGE: 64 GENDER: Male HEIGHT: 71 inches WEIGHT: 149 pounds BODY SURFACE AREA: 1.86 m2 PATIENT LOCATION: Inpatient, ICU, room 3203 REFERRING PHYSICIAN: Dr. Dorothy Chavarria INDICATION: Dyspnea. 2-D MEASUREMENTS: RV: 3.8 cm LV: 4.7 cm Septum: 1.0 cm Posterior wall: 1.0 cm Aortic root: 3.4 cm LA: 3.9 cm LVEF: 65% DOPPLER MEASUREMENTS: AV: 1.27 m/s LVOT: 1.0 m/s LVOT diameter: 1.8 cm MV-E: 69, A: 94, EA ratio: 0.7 Early mitral deceleration time; 208 ms E prime medial: 6.8 A prime medial: 10 E prime lateral: 8.1 Average E/E ratio: 9.3 / PCWP 13.4 PV: 0.8 m/s Pulmonary artery acceleration time: 92 ms RVSP: 38 mmHg IVC: 2.0 cm COMMENTS Normal sinus rhythm without intraventricular conduction disturbance. M-mode and two-dimensional echocardiography was performed with pulsed, continuous wave, color flow and tissue Doppler studies. Normal left ventricular size, wall thickness and wall motion. Left atrial size upper limits of normal with grade 1 LV diastolic dysfunction, but currently normal estimated mean left atrial pressure. Normal right ventricular size and motion with Doppler evidence of mild pulmonary hypertension. Normal right atrial size and inferior vena cava with normal respiratory collapse against an elevated central venous pressure. Mild aortic valvular sclerosis without functional abnormality. Normal aortic diameters. Subtle to mild mitral annular calcification, but normal leaflet thickness and excursion with no posterior systolic prolapse and only very mild insufficiency (physiologic). Normal appearing tricuspid valve with mild insufficiency. No apparent intracardiac mass or pericardial effusion.
[2019-09-30] MEDS: SYMBICORT 160/4.5MCG INHALER 6GM INH SCH (20:45)
[2019-09-30] MEDS: diltiaZEM **CD** 180 MG CAP PO SCH (20:55)
[2019-10-01] VITALS (7 sets, daily range): BP systolic 130–146; BP diastolic 62–70
[2019-10-01] MEDS: ALBUTEROL 90 MCG/ACT 8GM HFA INHALER INH SCH ×6 (01:15→19:38)
[2019-10-01] MEDS: PIPERACILLIN/TAZOBACTAM SOD 3.375 GM in D5W MINI-BAG PLUS 50 ML IV SCH ×4 (03:25→20:39)
[2019-10-01] MEDS: methylPREDNISolone INJ 125 MG/2 ML VIAL (J2930) IV SCH ×2 (03:25→07:47)
[2019-10-01 05:24] LABS: BASO # 0.1 10^3/uL (0.0-0.2); BASO % 0.3 % (0.0-1.0); HEMATOCRIT 39.6 % (42.0-52.0); LYMPH # 1.4 10^3/uL (1.5-5.0); LYMPH % 5.7 % (24.0-44.0); MEAN CORPUSCULAR HEMOGLOBIN 27.3 pg (27.0-33.0); MEAN CORPUSCULAR HGB CONC 30.3 g/dl (32.0-36.5); MONO # 0.6 10^3/uL (0.0-0.8); MONO % 2.6 % (0.0-5.0); NEUTROPHILS # 21.7 10^3/uL (1.5-8.5); NEUTROPHILS % 89.7 % (36.0-66.0); PLATELET COUNT, AUTOMATED 266 10^3/uL (150-450); WHITE BLOOD COUNT 24.2 10^3/uL (4.0-10.0)
[2019-10-01 05:39] LABS: BLOOD UREA NITROGEN 28 MG/DL (7-18); CALCIUM LEVEL 9.4 MG/DL (8.8-10.2); CARBON DIOXIDE LEVEL 33 MEQ/L (21-32); CHLORIDE LEVEL 101 MEQ/L (98-107); CREATININE FOR GFR 0.88 MG/DL (0.70-1.30); GLOMERULAR FILTRATION RATE > 60.0 (>49); GLUCOSE, FASTING 251 MG/DL (70-100); POTASSIUM SERUM 3.7 MEQ/L (3.5-5.1); SODIUM LEVEL 139 MEQ/L (136-145)
[2019-10-01] MEDS: TIOTROPIUM INHALER/CAPSULE (SPIRIVA) INH SCH (07:35)
[2019-10-01] MEDS: SYMBICORT 160/4.5MCG INHALER 6GM INH SCH ×2 (07:36→19:38)
[2019-10-01] MEDS: HumaLOG INSULIN (NovoLOG) PER UNIT SC SCH ×4 (07:48→20:45)
[2019-10-01] MEDS: ACETAMINOPHEN 500 MG TAB PO SCH (09:00)
[2019-10-01] MEDS: FUROSEMIDE 20 MG/2 ML VIAL (J1940) IV SCH (09:00)
[2019-10-01] MEDS: APIXABAN 5 MG TAB (ELIQUIS) PO SCH ×2 (09:00→20:38)
[2019-10-01] MEDS: DULoxetine 30 MG CAP (CYMBALTA) PO SCH (09:01)
[2019-10-01] MEDS: OMEPRAZOLE 20 MG CAP PO SCH ×2 (09:01→17:09)
[2019-10-01] MEDS: VALSARTAN 80 MG TAB (DIOVAN) PO SCH (09:01)
[2019-10-01] MEDS: TAMSULOSIN 0.4 MG CAP PO SCH (09:01)
[2019-10-01] MEDS: PANTOPRAZOLE 40MG TAB (PROTONIX) PO SCH (09:03)
[2019-10-01] MEDS: AMIODARONE 200 MG TAB (PACERONE) PO SCH (09:04)
[2019-10-01] MEDS: busPIRone 10 MG TAB PO SCH ×2 (09:04→17:09)
[2019-10-01] MEDS: KETOROLAC 30 MG/ML VIAL (J1885) IV PRN ×2 (09:18→18:07)
[2019-10-01] MEDS ORDERED: ALBUTEROL 90 MCG/ACT 8GM HFA INHALER INH PRN ×2 (10:00→11:15)
--- NOTE | 2019-10-01 11:11 | IPNPDOC ---
Subjective Date Seen The patient was seen on 10/01/19. Subjective Chief Complaint/HPI Feels much better continues to bring up copious amounts of thick phlegm . As per deeptiughtr the phlegm has been this bad for several months though the patient says about 1 month. Low grade fever last night. complains of of chest pain when he coughs. Colostomy working well. Objective Physical Examination General Exam: Positive: Alert, Cooperative, Mild Distress Eye Exam: Positive: PERRLA, Conjunctiva & lids normal, EOMI; Negative: Sclera icteric Neck Exam: Positive: Supple; Negative: JVD, thyromegaly Chest Exam: Positive: Rhonchi, Wheezing, Diminished Heart Exam: Positive: Rate Normal, Regular Rhythm, Normal S1, Normal S2; Negative: Irregular Rhythm, Gallops, Murmurs, Rubs Telemetry: Positive: Sinus, Tachycardia Abdomen Exam: Positive: Normal bowel sounds, Soft, Other (colostomy) Extremity Exam: Negative: Clubbing, Cyanosis, Edema Skin Exam: Positive: Nl turgor and temperature; Negative: Breakdown, Lesion Neuro Exam: Positive: Normal Speech, Strength at 5/5 X4 ext, Normal Tone Psych Exam: Positive: Anxiety, Memory Intact, Oriented x 3 Assessment /Plan Assessment 64year old male with h/o child fernandez asthma, copd, home oxygen, bronchiectasis, afib, diabetes, hypertension, BPH , colostomy in place since 2019, chronic hepatits C infection, chronic back pain, GERD has been feeling sick for about 1 month with increasing cough, increasing SOB and increased phlegm production. He has been feeling the worst for the past 1 week and has been unable to eat much for the past 5 days due to SOB. Today his breathing was very bad at home and he could hardly talk so his rivet tester called the EMS and patient was brought to the ED. He also says that his colostomy has not been changed for 5 days and it is leaking. He says he does not have supplies to change it. He has a vising nurse and a aid who come in 2 to 3 times a week to help him. He complains of low back pain and left hip pain says it is dull aching type about 6/10 in i ntensity with no radiation. Says the pain gets worse in the hospital and then he needs pain medications. On initial presentation to the ED he was in extremi. He was placed on CPAP in the ambulance. His blood gas showed hypoxia. Hie breathing improved after nebs, steroid and lasix. In the ED CT chest showed diffuse "tree in bud" pattern throughout the lung carr bilaterally which can be the result of inflammation, infection or neoplasm. There is diffuse bilateral bronchiectasis. 3 pulmonary nodules 4, 9 and 10 mm. There are enlarged mediastinal nodes, the largest being a precarinal node measuring 15 mm and a subcarinal node measuring 14 mm. Patient's respiratory panel was negative. WBC was elevated at 25K. Ed provider felt that with his respiratory symptoms and CT pattern he should be evaluated for COVID. SO the pateitn was plced on isolation and appropriate test was ordered. Acute Bronchiectasis flare with bilateral pneumonia sputum and blood cultures sent sputum with gram positive cocci in chains and clusters. resp panel negative, Cai virus testing ordered. Isolation precautions zosyn and azithromycin. Exacebation of COPD-with acute on chronic respiratory failure with hypoxia and hypercarbia mild to moderate pulmonary hypertension and grade 1 diastolic dysfunction. budesonide, formoterol, albuterol, spiriva methyl pred. Elevated BNP so h/o CHF echo as [facility] had normal EF and no significant valvular defects mentioned in Dc summary. No report actually available at present. acute on chronic diastolic CHF will give lasix iv daily Echo: with grade 1 LV diastolic dysfunction, but currently normal estimated mean left atrial pressure. Normal right ventricular size and motion with Doppler evidence of mild pulmonary hypertension. Diverticulitis with diverticular perforation and abscess s/p sigmoid colectomy with end colostomy at [facility] on 02/21/19 followed by wound dehiscence on03/17/19 colostomy care Paroxysmal atrial fibrillation now in sinus tachycardia continue amiodarone, diltiazem and eliquis Diabetes stop metformin lispro sliding scale GERD PPI Plan/VTE VTE Prophylaxis Ordered?: Yes VS, I&O, 24H, Fishbone Vital Signs/I&O Vital Signs Date Time Temp Pulse Resp B/P (MAP) Pulse Ox O2 Delivery O2 Flow Rate FiO2 10/01/19 09:01 138/65 10/01/19 08:00 96.7 72 28 95 Nasal Cannula 1.0 I&O- Last 24 Hours up to 6 AM 10/01/19 06:00 Intake Total 2050 ml Output Total 1025 ml Balance 1025 ml Laboratory Data 24H LABS Laboratory Tests 2 09/30/19 11:41: Bedside Glucose (Misc Panel) 223H 09/30/19 17:27: Bedside Glucose (Misc Panel) 250H 09/30/19 20:58: Bedside Glucose (Misc Panel) 242H 10/01/19 05:05: Immature Granulocyte % (Auto) 1.7, Neutrophils (%) (Auto) 89.7H, Lymphocytes (%) (Auto) 5.7L, Monocytes (%) (Auto) 2.6, Eosinophils (%) (Auto) 0.0, Basophils (%) (Auto) 0.3, Neutrophils # (Auto) 21.7H, Lymphocytes # (Auto) 1.4L, Monocytes # (Auto) 0.6, Eosinophils # (Auto) 0.0, Basophils # (Auto) 0.1, Nucleated Red Blood Cells % (auto) 0.0, Anion Gap 5L, Glomerular Filtration Rate > 60.0, Calc ium Level 9.4 CBC/BMP Laboratory Tests 10/01/19 05:05 Microbiology Microbiology 09/30/19 Respiratory Virus (PCR), Received Pending 09/29/19 Blood Culture - Preliminary, Resulted No growth after 24 hours . All specim... 09/29/19 Blood Culture - Preliminary, Resulted No growth after 24 hours . All specim... 09/29/19 Respiratory Virus Panel (PCR) (YOLI) - Final, Complete 09/29/19 Gram Stain - Final, Complete 09/29/19 Sputum Culture - Final, Complete 09/29/19 Virus Detection (PCR), Received Pending FER BROWN MD Oct 01, 2019 11:11
[2019-10-01] MEDS: AZITHROMYCIN INJ 500 MG, VIAL MATE ADAPTER 1 EACH in D5W 250 ML IV SCH (17:10)
[2019-10-01] MEDS: diltiaZEM **CD** 180 MG CAP PO SCH (20:39)
[2019-10-01] MEDS ORDERED: methylPREDNISolone INJ 125 MG/2 ML VIAL (J2930) IV SCH (21:00)
[2019-10-02] VITALS: BP 146/66
[2019-10-02] MEDS: ALBUTEROL 90 MCG/ACT 8GM HFA INHALER INH SCH ×6 (00:05→22:07)
[2019-10-02] MEDS: KETOROLAC 30 MG/ML VIAL (J1885) IV PRN ×2 (00:08→09:35)
[2019-10-02] MEDS ORDERED: ACETAMINOPHEN 650MG ER TAB (TYLENOL ARTHRITIS) PO PRN (03:45)
[2019-10-02] MEDS ORDERED: LIDOCAINE 5% (LIDODERM) PATCH TD PRN (04:00)
[2019-10-02] MEDS: PIPERACILLIN/TAZOBACTAM SOD 3.375 GM in D5W MINI-BAG PLUS 50 ML IV SCH ×4 (04:06→20:32)
[2019-10-02 04:13] VITALS: BP 125/60
[2019-10-02 05:24] LABS: BASO % 0.2 % (0.0-1.0); HEMOGLOBIN 11.7 g/dl (13.5-17.5); LYMPH # 0.8 10^3/uL (1.5-5.0); LYMPH % 4.6 % (24.0-44.0); MEAN CORPUSCULAR HEMOGLOBIN 27.8 pg (27.0-33.0); MEAN CORPUSCULAR HGB CONC 30.8 g/dl (32.0-36.5); MEAN CORPUSCULAR VOLUME 90.3 fl (80.0-96.0); MONO # 0.3 10^3/uL (0.0-0.8); MONO % 1.6 % (0.0-5.0); NEUTROPHILS # 15.8 10^3/uL (1.5-8.5); NEUTROPHILS % 91.4 % (36.0-66.0); PLATELET COUNT, AUTOMATED 263 10^3/uL (150-450); RED BLOOD COUNT 4.21 10^6/uL (4.30-6.10); WHITE BLOOD COUNT 17.3 10^3/uL (4.0-10.0)
[2019-10-02 05:46] LABS: BLOOD UREA NITROGEN 30 MG/DL (7-18); CALCIUM LEVEL 8.8 MG/DL (8.8-10.2); CARBON DIOXIDE LEVEL 35 MEQ/L (21-32); CHLORIDE LEVEL 100 MEQ/L (98-107); CREATININE FOR GFR 0.93 MG/DL (0.70-1.30); GLOMERULAR FILTRATION RATE > 60.0 (>49); GLUCOSE, FASTING 241 MG/DL (70-100); POTASSIUM SERUM 3.7 MEQ/L (3.5-5.1); SODIUM LEVEL 140 MEQ/L (136-145)
[2019-10-02] MEDS: SYMBICORT 160/4.5MCG INHALER 6GM INH SCH ×2 (07:10→22:07)
[2019-10-02] MEDS: TIOTROPIUM INHALER/CAPSULE (SPIRIVA) INH SCH (07:10)
[2019-10-02] MEDS: HumaLOG INSULIN (NovoLOG) PER UNIT SC SCH ×4 (07:38→20:32)
[2019-10-02 08:00] VITALS: BP 133/61
[2019-10-02] MEDS: FUROSEMIDE 20 MG/2 ML VIAL (J1940) IV SCH (09:35)
[2019-10-02] MEDS: AMIODARONE 200 MG TAB (PACERONE) PO SCH (09:37)
[2019-10-02] MEDS: VALSARTAN 80 MG TAB (DIOVAN) PO SCH (09:37)
[2019-10-02] MEDS: DULoxetine 30 MG CAP (CYMBALTA) PO SCH (09:37)
[2019-10-02] MEDS: busPIRone 10 MG TAB PO SCH ×2 (09:37→17:19)
[2019-10-02] MEDS: PANTOPRAZOLE 40MG TAB (PROTONIX) PO SCH (09:37)
[2019-10-02] MEDS: OMEPRAZOLE 20 MG CAP PO SCH ×2 (09:38→17:19)
[2019-10-02] MEDS: TAMSULOSIN 0.4 MG CAP PO SCH (09:38)
[2019-10-02] MEDS: predniSONE 20 MG TAB PO SCH (09:38)
[2019-10-02] MEDS: APIXABAN 5 MG TAB (ELIQUIS) PO SCH ×2 (09:38→20:30)
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
[2019-10-02 11:59] VITALS: BP 140/64
[2019-10-02 16:00] VITALS: BP 148/66
[2019-10-02 20:00] VITALS: BP 144/68
[2019-10-02] MEDS: diltiaZEM **CD** 180 MG CAP PO SCH (20:32)
[2019-10-02] MEDS ORDERED: **NOTE PATIENT COMMENT** MISC XX PRN (21:00)
[2019-10-02] MEDS ORDERED: AZITHROMYCIN 250 MG TAB PO SCH (21:00)
[2019-10-03] VITALS: BP 141/65
[2019-10-03] MEDS: ALBUTEROL 90 MCG/ACT 8GM HFA INHALER INH SCH ×6 (01:00→15:33)
[2019-10-03] MEDS: KETOROLAC 30 MG/ML VIAL (J1885) IV PRN ×2 (02:46→08:37)
[2019-10-03] MEDS: PIPERACILLIN/TAZOBACTAM SOD 3.375 GM in D5W MINI-BAG PLUS 50 ML IV SCH ×3 (02:48→09:00)
[2019-10-03 04:00] VITALS: BP 134/60
[2019-10-03 04:54] LABS: HEMATOCRIT 34.9 % (42.0-52.0); HEMOGLOBIN 10.7 g/dl (13.5-17.5); MEAN CORPUSCULAR HEMOGLOBIN 27.9 pg (27.0-33.0); MEAN CORPUSCULAR HGB CONC 30.7 g/dl (32.0-36.5); MEAN CORPUSCULAR VOLUME 90.9 fl (80.0-96.0); PLATELET COUNT, AUTOMATED 225 10^3/uL (150-450); RED BLOOD COUNT 3.84 10^6/uL (4.30-6.10); WHITE BLOOD COUNT 15.1 10^3/uL (4.0-10.0)
[2019-10-03 05:15] LABS: BLOOD UREA NITROGEN 31 MG/DL (7-18); CALCIUM LEVEL 9.1 MG/DL (8.8-10.2); CARBON DIOXIDE LEVEL 35 MEQ/L (21-32); CHLORIDE LEVEL 101 MEQ/L (98-107); CREATININE FOR GFR 0.82 MG/DL (0.70-1.30); GLOMERULAR FILTRATION RATE > 60.0 (>49); GLUCOSE, FASTING 237 MG/DL (70-100); POTASSIUM SERUM 3.8 MEQ/L (3.5-5.1); SODIUM LEVEL 141 MEQ/L (136-145)
[2019-10-03 07:54] VITALS: BP 152/73
[2019-10-03] MEDS: TIOTROPIUM INHALER/CAPSULE (SPIRIVA) INH SCH (08:07)
[2019-10-03] MEDS: SYMBICORT 160/4.5MCG INHALER 6GM INH SCH (08:07)
[2019-10-03] MEDS: HumaLOG INSULIN (NovoLOG) PER UNIT SC SCH ×2 (08:31→12:51)
[2019-10-03 08:32] VITALS: BP 152/73
[2019-10-03] MEDS: busPIRone 10 MG TAB PO SCH (08:32)
[2019-10-03] MEDS: VALSARTAN 80 MG TAB (DIOVAN) PO SCH (08:32)
[2019-10-03] MEDS: APIXABAN 5 MG TAB (ELIQUIS) PO SCH (08:33)
[2019-10-03] MEDS: predniSONE 20 MG TAB PO SCH (08:33)
[2019-10-03] MEDS: PANTOPRAZOLE 40MG TAB (PROTONIX) PO SCH (08:33)
[2019-10-03] MEDS: AMIODARONE 200 MG TAB (PACERONE) PO SCH (08:34)
[2019-10-03] MEDS: OMEPRAZOLE 20 MG CAP PO SCH (08:35)
[2019-10-03] MEDS: DULoxetine 30 MG CAP (CYMBALTA) PO SCH (08:35)
[2019-10-03] MEDS: TAMSULOSIN 0.4 MG CAP PO SCH (08:35)
[2019-10-03] MEDS: FUROSEMIDE 20 MG/2 ML VIAL (J1940) IV SCH (08:36)
[2019-10-03] MEDS ORDERED: CEFUROXIME 500 MG TAB PO SCH (09:00)
[2019-10-03] MEDS ORDERED: IBUPROFEN 600 MG TAB PO PRN (11:30)
[2019-10-03] MEDS ORDERED: BREO1INH3 INH (11:45)
[2019-10-03] MEDS ORDERED: CEFU50TA PO (11:45)
[2019-10-03] MEDS ORDERED: PRED10TA2 PO (11:45)
[2019-10-03] MEDS ORDERED: AZIT-12 PO (11:45)
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
[2019-10-04] MEDS ORDERED: predniSONE 50 MG TAB PO SCH (09:00)
== END 2019-10-03 15:47 | disposition home or self-care (01) | DRG 193 ==
LOC: M ED 11:33 → M ED INP 18:26 → ENRESERV 19:35 → M ICU 21:20
PROVIDERS: ADMIT Internal Medicine Nephrology; ATTEND Internal Medicine Nephrology
DX: J18.9 Pneumonia, unspecified organism (principal); J96.21 Acute and chronic respiratory failure with hypoxia; I50.33 Acute on chronic diastolic (congestive) heart failure; J96.22 Acute and chronic respiratory failure with hypercapnia; J47.1 Bronchiectasis with (acute) exacerbation; I48.20 Chronic atrial fibrillation, unspecified; Z99.81 Dependence on supplemental oxygen; E11.9 Type 2 diabetes mellitus without complications; I11.0 Hypertensive heart disease with heart failure; N40.0 Benign prostatic hyperplasia without lower urinary tract symptoms; Z93.3 Colostomy status; B19.20 Unspecified viral hepatitis C without hepatic coma; K21.9 Gastro-esophageal reflux disease without esophagitis; M51.36 Other intervertebral disc degeneration, lumbar region; M16.12 Unilateral primary osteoarthritis, left hip; R91.8 Other nonspecific abnormal finding of lung field; R59.0 Localized enlarged lymph nodes; Z79.84 Long term (current) use of oral hypoglycemic drugs; Z79.899 Other long term (current) drug therapy; R29.6 Repeated falls; R62.7 Adult failure to thrive; M81.0 Age-related osteoporosis without current pathological fracture; Z87.891 Personal history of nicotine dependence; I48.0 Paroxysmal atrial fibrillation; R00.0 Tachycardia, unspecified; Z87.820 Personal history of traumatic brain injury

== ENCOUNTER 2020-05-31 13:47 | Inpatient (IN) | payer MEDICARE ==
[~2020-05-31] VITALS: Ht 180.3 cm; Wt 83.8 kg
[~2020-05-31 13:47] MED LIST changes: +ALPR0.5T6 PO; +AMIO200T3 PO; +AMLO1TAB24 PO; -AMLO5TAB6 PO; +AZIT-12 PO; +BREO1INH3 INH; +CEFU50TA PO; +DILT1CAP9 PO; +DULO1CAP6 PO; +METF500T13 PO; +NITR0.4S14 SL; +PRED10TA2 PO; +TAMS1CAP17 PO; +VALS1TAB66 PO
[2020-05-31] MEDS ORDERED: dexameTHASONE 20MG/5ML VIAL (J1100 PER 1MG) IV ONE (14:30)
[2020-05-31 14:39] LABS: VENOUS BASE EXCESS 3.2 (-2.0-2.0); VENOUS HCO3 30.3 MEQ/L (23.0-27.0); VENOUS O2 SATURATION 82.9 % (60.0-80.0); VENOUS PARTIAL PRESSURE CO2 56.5 mmHg (38.0-50.0); VENOUS PH 7.347 UNITS (7.330-7.430); VENOUS STANDARD HCO3 26.9 MEQ/L
[2020-05-31 14:44] LABS: BASO # 0.2 10^3/uL (0.0-0.2); BASO % 0.8 % (0.0-1.0); EOS # 0.4 10^3/uL (0.0-0.5); EOS % 1.9 % (0.0-3.0); HEMATOCRIT 43.7 % (42.0-52.0); HEMOGLOBIN 13.4 g/dl (13.5-17.5); LYMPH # 3.2 10^3/uL (1.5-5.0); MEAN CORPUSCULAR HGB CONC 30.7 g/dl (32.0-36.5); MEAN CORPUSCULAR VOLUME 94.6 fl (80.0-96.0); MONO # 1.2 10^3/uL (0.0-0.8); MONO % 6.6 % (0.0-5.0); NEUTROPHILS # 13.8 10^3/uL (1.5-8.5); PLATELET COUNT, AUTOMATED 302 10^3/uL (150-450); RED BLOOD COUNT 4.62 10^6/uL (4.30-6.10); WHITE BLOOD COUNT 18.9 10^3/uL (4.0-10.0)
[2020-05-31] MEDS: COMBIVENT RESPIMAT 100-20MCG INHALER 4GM INH SCH ×3 (14:50→17:37)
[2020-05-31 15:18] LABS: ALBUMIN 3.4 GM/DL (3.2-5.2); ALT/SGPT 19 U/L (12-78); BILIRUBIN,DIRECT 0.1 MG/DL (0.0-0.2); BILIRUBIN,TOTAL 0.2 MG/DL (0.2-1.0); BLOOD UREA NITROGEN 13 MG/DL (7-18); CALCIUM LEVEL 11.2 MG/DL (8.8-10.2); CARBON DIOXIDE LEVEL 30 MEQ/L (21-32); CHLORIDE LEVEL 105 MEQ/L (98-107); CPK CREATINE PHOSPHOKINASE 96 U/L (39-308); CREATININE FOR GFR 0.66 MG/DL (0.70-1.30); GLOMERULAR FILTRATION RATE > 60.0 (>49); GLUCOSE, FASTING 80 MG/DL (70-100); MB/CK RELATIVE INDEX 3.12 (< OR =4); NT-PRO BNP 1757 PG/ML (<125); POTASSIUM SERUM 4.4 MEQ/L (3.5-5.1); SODIUM LEVEL 142 MEQ/L (136-145); THYROID STIMULATING HORMONE 0.708 uIU/ML (0.358-3.740); THYROXINE (T4) 8.6 UG/DL (4.5-12.0); TROPONIN I 0.03 NG/ML (< 0.10)
[2020-05-31] MEDS ORDERED: BENZONATATE 100 MG CAP PO ONE (16:15)
--- NOTE | 2020-05-31 16:16 | REP ---
INDICATION: DYSPNEA/COUGH. COMPARISON: CT, AP portable 09/29/2019 TECHNIQUE: AP seated exam FINDINGS: Lung carr are hyperinflated. Some diffuse interstitial changes again noted. CP angle is sharply defined on the left and minimally blunted on the right but both of these unchanged. No dense consolidation. Some apical pleuroparenchymal scarring noted. The pulmonary arteries are prominent centrally suggesting pulmonary artery hypertension. The heart size not grossly enlarged. There is no pulmonary edema. The airway is intact and the aorta mildly tortuous but without aneurysm. Bones show some old posttraumatic changes left posterolateral ribs stable from previous study. The clavicles and portions of shoulders included without acute finding. IMPRESSION: 1. Some underlying COPD with interstitial changes, chronic. No gross infiltrate, effusion cardiomegaly or edema. 2. Some prominent central pulmonary arteries suggesting a degree of pulmonary artery hypertension. 3. Old posttraumatic changes left posterolateral ribs in the lower chest. These appear grossly unchanged from the previous study. <Electronically signed by Elvin Vora > 05/31/20 [id number]
--- NOTE | 2020-05-31 17:01 | REP ---
INDICATION: copd/ possible left sided mass. COMPARISON: Portable chest 05/31/2020, CT and portable chest 09/29/2019 TECHNIQUE: Noncontrast exam with coronal and sagittal reconstructions. FINDINGS: Lung carr are hyperinflated with underlying COPD and some emphysematous changes. There is bronchiectatic change throughout the lungs and less of the tree-in-bud appearance seen on the previous study suggesting improvement in acute inflammatory change. There is 1 zone of peripheral density of the right mid lung mid axillary line in the upper lobe about 10 mm and best seen on image 50. Apical pleuroparenchymal scarring is unchanged. Some curvilinear fibrotic changes are seen and a stable nodule in the left lower lobe lateral basal segment mid axillary line again noted. Another stable 4 mm nodule on image 75 in the posterior basal segment left lower lobe in the posterior axillary line region. There is no pleural effusion, pleural plaque or calcified plaque, dense consolidation with air bronchograms or other acute finding. Heart is not enlarged. No pericardial thickening or effusion the aorta is calcifications at the arch and descending portion. There are few calcified mediastinal nodes and some coronary calcifications. There are other noncalcified mediastinal nodes the largest which is a fatty replaced node the precarinal region at 16 mm and subcentimeter AP window, subcarinal and prevascular space nodes along with right paratracheal nodes. Small hiatal hernia is noted. There is no axillary or supraclavicular mass. Bone windows show mild thoracic kyphosis without acute wedge compression deformity within the spine. This is all unchanged. Sternum, manubrium, medial clavicles, visualized portions of scapulae, humeral heads and ribs are unchanged. There are multiple old healed and remodeled left posterolateral rib fractures which are stable. In the upper abdomen, that portion of liver and spleen included, the adrenal glands and stomach are without any acute gross abnormalities. The kidneys and are out of the field of view. No ascites in the upper abdomen or free air IMPRESSION: 1. COPD and emphysematous changes with the fibrosis, bronchiectatic changes and chronic scarring bilaterally. The tree-in-bud appearance the previous study is improved indicating improvement in the inflammatory process. No effusion. 2. A 10 mm triangular-shaped density mid axillary line right upper lobe in the subpleural lung is a new finding. No mass, acute infiltrate with air bronchograms, pleural effusion or change in the left lower lobe stable nodules previously described. 3. Stable appearance of the mediastinal nodes. 4. Old posttraumatic rib trauma healed and remodeled. There is no mass in the left or right chest at this time. <Electronically signed by Elvin Vora > 05/31/20 [id number]
[2020-05-31] MEDS ORDERED: NS 1,000 ML IV ONE (18:15)
[2020-05-31] MEDS ORDERED: MAG SULF 1GM/100ML (MAG RUN) 1 GM in IV 1 EA IV ONE (18:15)
[2020-05-31] MEDS ORDERED: KETOROLAC 30 MG/ML 1ML VIAL IV ONE (18:30)
[2020-05-31] MEDS ORDERED: BREO1INH3 INH (18:31)
[2020-05-31] MEDS ORDERED: TRAZ-252 PO (18:31)
[2020-05-31] MEDS ORDERED: DILT1CAP4 PO (18:31)
[2020-05-31] MEDS ORDERED: GLUCAGON INJ 1MG VIAL SC PRN (18:45)
[2020-05-31] MEDS ORDERED: DEXTROSE 50% 50 ML SYRINGE IV PRN (18:45)
[2020-05-31] MEDS ORDERED: GLUCOSE 4GM CHEW TABLET PO PRN (18:45)
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
--- NOTE | 2020-05-31 19:03 | ECGEPIP ---
[facility] - ED Test Date: 2020-05-31 Pat Name: CARLEEN JARRETT Department: Room: - Gender: Male Motor Vehicle Or Caravan Salesperson: CHRIS : 1955 Requested By: GEOVANI Coker Order Number: [id number] Reading MD: Bren Tristan Measurements Intervals [place] Rate: 100 P: 49 ND: 136 QRS: 43 QRSD: 107 T: 74 QT: 359 QTc: 463 Interpretive Statements SINUS TACHYCARDIA ABNORMAL RHYTHM ECG NSTTW abnormalities SIMILAR 09/29/19 Electronically Signed on 05-31-2020 19:03:26 EST by Bren Tristan
[2020-05-31] MEDS: FORMOTEROL FUMARATE 20 MCG/2 ML INHALATION SOLUTION (PERFOROMIST) INH SCH (20:00)
[2020-05-31] MEDS: IPRATROPIUM 0.02% SOLN 0.5MG 2.5ML NEB INH SCH (20:57)
[2020-05-31] MEDS: LEVALBUTEROL 1.25 MG/0.5 ML CONCENTRATE NEB INH SCH (20:57)
[2020-05-31] MEDS: BUDESONIDE 0.5 MG/2 ML INHALATION SUSPENSION INH SCH (20:57)
[2020-05-31 22:00] VITALS: BP 149/87
[2020-05-31] MEDS: HumaLOG INSULIN (NovoLOG) PER UNIT SC SCH (22:35)
[2020-05-31] MEDS: APIXABAN 5 MG TAB (ELIQUIS) PO SCH (22:52)
[2020-05-31] MEDS: BENZONATATE 100 MG CAP PO SCH (22:52)
[2020-05-31] MEDS: diltiaZEM **CD** 180 MG CAP PO SCH (22:52)
[2020-05-31] MEDS: methylPREDNISolone 40MG 1ML VIAL IV SCH (22:53)
[2020-05-31] MEDS ORDERED: ACETAMINOPHEN TAB 650MG DOSE (2X325MG) PO PRN (23:15)
[2020-06-01] MEDS: IPRATROPIUM 0.02% SOLN 0.5MG 2.5ML NEB INH SCH ×7 (00:20→23:48)
[2020-06-01] MEDS: LEVALBUTEROL 1.25 MG/0.5 ML CONCENTRATE NEB INH SCH ×7 (00:21→23:48)
[2020-06-01 05:50] VITALS: BP 131/62
[2020-06-01 06:22] LABS: ABG BASE EXCESS 2.7 (-2.0-2.0); ABG HCO3 28.1 MEQ/L (22.0-26.0); ABG O2 SATURATION 99.2 % (95.0-99.0); ABG PARTIAL PRESSURE CO2 46.3 mmHg (35.0-45.0); ABG PARTIAL PRESSURE O2 132.1 mmHg (75.0-100.0); ABG TOTAL CO2 29.5 MEQ/L (23.0-31.0); ABG pH (ARTERIAL) 7.401 UNITS (7.350-7.450)
[2020-06-01] MEDS: methylPREDNISolone 40MG 1ML VIAL IV SCH (06:32)
[2020-06-01 06:48] LABS: BASO % 0.1 % (0.0-1.0); HEMATOCRIT 37.5 % (42.0-52.0); HEMOGLOBIN 11.5 g/dl (13.5-17.5); LYMPH # 1.2 10^3/uL (1.5-5.0); LYMPH % 7.2 % (24.0-44.0); MEAN CORPUSCULAR HEMOGLOBIN 28.9 pg (27.0-33.0); MEAN CORPUSCULAR HGB CONC 30.7 g/dl (32.0-36.5); MEAN CORPUSCULAR VOLUME 94.2 fl (80.0-96.0); MONO # 0.1 10^3/uL (0.0-0.8); MONO % 0.6 % (0.0-5.0); NEUTROPHILS % 91.6 % (36.0-66.0); PLATELET COUNT, AUTOMATED 272 10^3/uL (150-450); RED BLOOD COUNT 3.98 10^6/uL (4.30-6.10); WHITE BLOOD COUNT 16.4 10^3/uL (4.0-10.0)
[2020-06-01 07:07] LABS: BLOOD UREA NITROGEN 17 MG/DL (7-18); CALCIUM LEVEL 9.6 MG/DL (8.8-10.2); CARBON DIOXIDE LEVEL 28 MEQ/L (21-32); CHLORIDE LEVEL 105 MEQ/L (98-107); CREATININE FOR GFR 0.75 MG/DL (0.70-1.30); GLOMERULAR FILTRATION RATE > 60.0 (>49); GLUCOSE, FASTING 156 MG/DL (70-100); SODIUM LEVEL 138 MEQ/L (136-145)
[2020-06-01] MEDS: BUDESONIDE 0.5 MG/2 ML INHALATION SUSPENSION INH SCH ×2 (07:54→20:06)
[2020-06-01] MEDS: FORMOTEROL FUMARATE 20 MCG/2 ML INHALATION SOLUTION (PERFOROMIST) INH SCH ×2 (07:54→20:06)
[2020-06-01] MEDS: busPIRone 10 MG TAB PO SCH ×2 (08:52→16:49)
[2020-06-01] MEDS: TAMSULOSIN 0.4 MG CAP PO SCH (08:52)
[2020-06-01] MEDS: AMIODARONE 200 MG TAB (PACERONE) PO SCH (08:52)
[2020-06-01] MEDS: VALSARTAN 80 MG TAB (DIOVAN) PO SCH (08:52)
[2020-06-01] MEDS: OMEPRAZOLE 20 MG CAP PO SCH ×2 (08:52→16:49)
[2020-06-01] MEDS: DOXYCYCLINE HYCLATE 100MG TABLET PO SCH ×2 (08:52→21:48)
[2020-06-01] MEDS: traMADol 50 MG TAB PO PRN ×2 (08:52→19:42)
[2020-06-01] MEDS: BENZONATATE 100 MG CAP PO SCH ×3 (08:53→21:48)
[2020-06-01] MEDS: APIXABAN 5 MG TAB (ELIQUIS) PO SCH ×2 (08:53→21:48)
[2020-06-01] MEDS: HumaLOG INSULIN (NovoLOG) PER UNIT SC SCH ×4 (08:54→21:00)
--- NOTE | 2020-06-01 13:58 | IPN ---
DATE: 06/01/2020 SUBJECTIVE: Isaiah was seen in [address] [place] [address] for exacerbation of COPD. CT of the chest on admission showed bronchiectasis, COPD changes, no infiltrate. He is having a significant cough and wheezing. He does not feel he has made any progress over yesterday. No fevers. PHYSICAL EXAMINATION: Vital signs: Temperature 96.8, 131/62, pulse 18, 97% O2 saturation on room air. General appearance: Incessant coughing. HEENT unremarkable. Lungs: Expiratory wheezes all carr. Good air movement. Heart: Regular rate and rhythm without murmur. Abdomen: Soft and nontender, no masses. Extremities: No peripheral edema. LABS: White count is 16.4 on steroids, hemoglobin 11.5, platelets 272. Sodium 138, potassium 4, BUN 17, creatinine 0.7, glucose 156. Calcium is down to 9.6. IMPRESSION AND PLAN: 1. Exacerbation of COPD from presumed bronchitis. We will continue his nebulizer, bronchodilator, intravenous Solu-Medrol. He is not currently on antibiotic therapy. I think he would benefit with some empiric oral doxycycline which we will start at 100 mg twice a day. We will also change his Solu-Medrol from 40 mg q.6h to 60 mg once daily. It should cause less adrenal suppression at that dosing. 2. Hypertensive heart disease. Continue his antihypertensive therapy. 3. Chronic diastolic congestive heart failure. He is compensated on exam. 4. Atrial fibrillation. Rate is controlled and he is on Eliquis for thromboembolic prophylaxis and Amiodarone for rhythm control. 5. Chronic back pain. He takes duloxetine 60 mg daily. He is asking for something stronger for pain control. He was taking Tylenol because of his past history of hepatitis C. 6. BPH. Continue his tamsulosin 0.4 mg daily. MTDD
[2020-06-01] MEDS: DULoxetine 30 MG CAP (CYMBALTA) PO SCH (16:49)
[2020-06-01] MEDS ORDERED: FUROSEMIDE 20MG/2ML VIAL (J1940) IV ONE (18:30)
--- NOTE | 2020-06-01 19:32 | REPVR ---
PROCEDURE INFORMATION: Exam: CT Abdomen And Pelvis Without Contrast Exam date and time: 06/01/2020 7:08 PM Age: 64 years old Clinical indication: Abdominal pain; Generalized; Prior surgery; Surgery date: 6+ months; Surgery type: Colon resection, and ostomy; Additional info: Abd pain TECHNIQUE: Imaging protocol: Computed tomography of the abdomen and pelvis without contrast. Radiation optimization: All CT scans at this facility use at least one of these dose optimization techniques: automated exposure control; mA and/or kV adjustment per patient size (includes targeted exams where dose is matched to clinical indication); or iterative reconstruction. COMPARISON: CT ABD/PEL W/IV CONTRAST ONLY 03/27/2019 9:42 PM FINDINGS: Lungs: Reticulonodular infiltrates at the lung bases are present. Left lower lobe lateral nodule measuring 6 mm, unchanged, axial image 8 since March 27, 2019 Liver: Noncontrast liver shows no obvious lesion. Gallbladder and bile ducts: Gallbladder is present and shows no evidence of gallstone. Pancreas: Noncontrast pancreas shows no obvious mass or adjacent fluid. Spleen: Noncontrast spleen shows no obvious focal deformity. Adrenal glands: Adrenal glands are normal in appearance. Kidneys and ureters: Left kidney demonstrates a nonobstructive lower pole calculus. Right kidney demonstrates no calculi. No ureter dilatation or stone. Stomach and bowel: Stomach is distended with ingested material and fluid. No evidence of small bowel obstruction. Surgical anastomosis within mid abdominal small bowel shows no significant change. Adjacent left lower quadrant colostomy shows no obstruction or dehiscence. Partial left hemicolectomy and Gayatri's pouch demonstrates no complication. Appendix: Appendix is not seen. No RLQ inflammation to suggest appendicitis. Intraperitoneal space: . No free air. Vasculature: Atherosclerotic change present in the aorta, without aneurysm. Lymph nodes: No enlarged lymph nodes. Urinary bladder: Urinary bladder appears normal. Reproductive: Dystrophic prostate calcifications are noted. Bones/joints: Cannulated lag screws are present within the proximal right femur. No concerning acute or destructive osseous abnormality. Old posttraumatic changes of the left acetabulum, with stable appearance. Old appearing superior endplate fracture of L4, unchanged. Old, healed left rib fractures are present. Soft tissues: Unremarkable. Other findings: Limited evaluation without enteric or IV contrast. IMPRESSION: 1. Postsurgical changes without evidence of obstruction or other acute complication. 2. Distention of the stomach without evidence of gastric outlet obstruction. 3. Nonobstructive lower pole left renal calculus. No hydronephrosis or ureter stone 4. Stable left lower lobe lung nodule , unchanged in size over 1 year, and measuring roughly 6 mm. Fleischner society recommendations for followup and management of nodules smaller than 8 mm detected incidentally on screening CT: Less than or equal to 4 mm: Low risk patients- no followup needed. High risk patients- followup in 12 months. If no change, no further imaging needed. 4-6 mm nodule: Low risk patients- followup in 12 months. If no change, no further imaging needed. High risk patients- initial followup CT at 6-12 months and then at 18-24 months if no change. Electronically signed by: Brandno Mitchell On 06/01/2020 19:32:18 PM
[2020-06-01 20:00] VITALS: BP 102/58
[2020-06-01] MEDS: SIMETHICONE 80 MG CHEW TAB PO PRN (21:48)
[2020-06-01] MEDS: diltiaZEM **CD** 180 MG CAP PO SCH (22:21)
[2020-06-01 22:24] VITALS: BP 130/74
[2020-06-01] MEDS: RAMELTEON 8 MG TAB (ROZEREM) PO PRN (23:21)
[2020-06-02] MEDS: LEVALBUTEROL 1.25 MG/0.5 ML CONCENTRATE NEB INH SCH ×6 (04:00→23:31)
[2020-06-02] MEDS: IPRATROPIUM 0.02% SOLN 0.5MG 2.5ML NEB INH SCH ×6 (04:00→23:31)
[2020-06-02] MEDS: methylPREDNISolone 125MG 2ML VIAL IV SCH (05:09)
[2020-06-02 06:17] VITALS: BP 146/75
[2020-06-02 07:50] LABS: BASO % 0.1 % (0.0-1.0); HEMATOCRIT 36.9 % (42.0-52.0); HEMOGLOBIN 11.2 g/dl (13.5-17.5); LYMPH # 1.5 10^3/uL (1.5-5.0); LYMPH % 5.2 % (24.0-44.0); MEAN CORPUSCULAR HEMOGLOBIN 29.1 pg (27.0-33.0); MEAN CORPUSCULAR HGB CONC 30.4 g/dl (32.0-36.5); MEAN CORPUSCULAR VOLUME 95.8 fl (80.0-96.0); MONO # 1.2 10^3/uL (0.0-0.8); MONO % 4.2 % (0.0-5.0); NEUTROPHILS # 25.7 10^3/uL (1.5-8.5); NEUTROPHILS % 89.6 % (36.0-66.0); PLATELET COUNT, AUTOMATED 266 10^3/uL (150-450); RED BLOOD COUNT 3.85 10^6/uL (4.30-6.10); WHITE BLOOD COUNT 28.8 10^3/uL (4.0-10.0)
[2020-06-02] MEDS: OMEPRAZOLE 20 MG CAP PO SCH ×2 (07:55→17:02)
[2020-06-02] MEDS: TAMSULOSIN 0.4 MG CAP PO SCH (07:56)
[2020-06-02] MEDS: APIXABAN 5 MG TAB (ELIQUIS) PO SCH ×2 (07:56→20:18)
[2020-06-02] MEDS: AMIODARONE 200 MG TAB (PACERONE) PO SCH (07:56)
[2020-06-02] MEDS: BENZONATATE 100 MG CAP PO SCH ×3 (07:56→20:18)
[2020-06-02] MEDS: VALSARTAN 80 MG TAB (DIOVAN) PO SCH (07:56)
[2020-06-02] MEDS: HumaLOG INSULIN (NovoLOG) PER UNIT SC SCH ×4 (07:57→20:22)
[2020-06-02] MEDS: DOXYCYCLINE HYCLATE 100MG TABLET PO SCH ×2 (07:57→20:18)
[2020-06-02] MEDS: busPIRone 10 MG TAB PO SCH ×2 (07:57→17:02)
[2020-06-02 08:02] LABS: BLOOD UREA NITROGEN 24 MG/DL (7-18); CALCIUM LEVEL 9.7 MG/DL (8.8-10.2); CARBON DIOXIDE LEVEL 31 MEQ/L (21-32); CHLORIDE LEVEL 104 MEQ/L (98-107); CREATININE FOR GFR 0.72 MG/DL (0.70-1.30); GLOMERULAR FILTRATION RATE > 60.0 (>49); GLUCOSE, FASTING 137 MG/DL (70-100); POTASSIUM SERUM 4.4 MEQ/L (3.5-5.1); SODIUM LEVEL 138 MEQ/L (136-145)
[2020-06-02] MEDS: BUDESONIDE 0.5 MG/2 ML INHALATION SUSPENSION INH SCH ×2 (08:02→19:52)
[2020-06-02] MEDS: FORMOTEROL FUMARATE 20 MCG/2 ML INHALATION SOLUTION (PERFOROMIST) INH SCH ×2 (08:02→19:52)
[2020-06-02] MEDS: MIRALAX *UNIT DOSE* 17GM PACKET PO SCH ×2 (09:19→20:19)
[2020-06-02] MEDS: SENOKOT S TAB PO SCH ×2 (09:19→20:18)
[2020-06-02 14:00] VITALS: BP 141/73
[2020-06-02] MEDS: DULoxetine 30 MG CAP (CYMBALTA) PO SCH (17:02)
[2020-06-02 19:46] VITALS: BP 146/78
[2020-06-02] MEDS: SIMETHICONE 80 MG CHEW TAB PO PRN (20:18)
[2020-06-02] MEDS: RAMELTEON 8 MG TAB (ROZEREM) PO PRN (20:18)
[2020-06-02] MEDS: diltiaZEM **CD** 180 MG CAP PO SCH (20:19)
[2020-06-03] MEDS: IPRATROPIUM 0.02% SOLN 0.5MG 2.5ML NEB INH SCH ×6 (02:55→22:58)
[2020-06-03] MEDS: LEVALBUTEROL 1.25 MG/0.5 ML CONCENTRATE NEB INH SCH ×6 (02:56→22:58)
[2020-06-03] MEDS: methylPREDNISolone 125MG 2ML VIAL IV SCH (05:41)
[2020-06-03 06:38] VITALS: BP 152/78
[2020-06-03] MEDS: FORMOTEROL FUMARATE 20 MCG/2 ML INHALATION SOLUTION (PERFOROMIST) INH SCH ×2 (07:24→19:28)
[2020-06-03] MEDS: BUDESONIDE 0.5 MG/2 ML INHALATION SUSPENSION INH SCH ×2 (07:24→19:28)
[2020-06-03] MEDS: HumaLOG INSULIN (NovoLOG) PER UNIT SC SCH ×4 (07:30→21:00)
[2020-06-03 08:03] LABS: BASO % 0.1 % (0.0-1.0); HEMATOCRIT 41.4 % (42.0-52.0); LYMPH # 1.4 10^3/uL (1.5-5.0); LYMPH % 5.1 % (24.0-44.0); MEAN CORPUSCULAR HEMOGLOBIN 28.3 pg (27.0-33.0); MEAN CORPUSCULAR VOLUME 97.6 fl (80.0-96.0); MONO % 3.6 % (0.0-5.0); NEUTROPHILS # 25.3 10^3/uL (1.5-8.5); NEUTROPHILS % 90.1 % (36.0-66.0); PLATELET COUNT, AUTOMATED 273 10^3/uL (150-450); RED BLOOD COUNT 4.24 10^6/uL (4.30-6.10); WHITE BLOOD COUNT 28.1 10^3/uL (4.0-10.0)
[2020-06-03] MEDS: MIRALAX *UNIT DOSE* 17GM PACKET PO SCH ×2 (08:57→21:58)
[2020-06-03] MEDS: BENZONATATE 100 MG CAP PO SCH ×3 (08:58→21:58)
[2020-06-03] MEDS: DOXYCYCLINE HYCLATE 100MG TABLET PO SCH ×2 (08:58→21:57)
[2020-06-03] MEDS: AMIODARONE 200 MG TAB (PACERONE) PO SCH (08:58)
[2020-06-03] MEDS: busPIRone 10 MG TAB PO SCH ×2 (08:58→16:53)
[2020-06-03] MEDS: VALSARTAN 80 MG TAB (DIOVAN) PO SCH (08:58)
[2020-06-03] MEDS: TAMSULOSIN 0.4 MG CAP PO SCH (08:58)
[2020-06-03] MEDS: SENOKOT S TAB PO SCH ×2 (08:58→21:57)
[2020-06-03] MEDS: OMEPRAZOLE 20 MG CAP PO SCH ×2 (08:58→16:53)
[2020-06-03] MEDS: APIXABAN 5 MG TAB (ELIQUIS) PO SCH ×2 (08:58→21:58)
[2020-06-03] MEDS ORDERED: methylPREDNISolone 125MG 2ML VIAL IV ONE (09:00)
[2020-06-03 09:58] LABS: BLOOD UREA NITROGEN 23 MG/DL (7-18); CALCIUM LEVEL 10.1 MG/DL (8.8-10.2); CARBON DIOXIDE LEVEL 30 MEQ/L (21-32); CHLORIDE LEVEL 104 MEQ/L (98-107); CREATININE FOR GFR 0.74 MG/DL (0.70-1.30); GLOMERULAR FILTRATION RATE > 60.0 (>49); GLUCOSE, FASTING 113 MG/DL (70-100); SODIUM LEVEL 138 MEQ/L (136-145)
--- NOTE | 2020-06-03 13:02 | IPN ---
DATE: 06/02/2020 SUBJECTIVE: Ayanna shortness of breath is better. He is having abdominal pain. He had quite a bit of distention yesterday. A CT scan of abdomen and pelvis did not show obstruction. He says he has thick constipated stool out of his ostomy so we will attend to this today. His labs are still pending. His lower extremity edema improved with intravenous Lasix. He says he uses periodic Lasix at home. PHYSICAL EXAMINATION: Vital signs: Stable. Lungs: Decreased breath sounds but wheezes all carr. Heart: Regular rate and rhythm. Abdomen: Soft, mildly distended. Firm around the ostomy. No stool in the ostomy. Extremities: Trace peripheral edema. Labs are all pending. IMPRESSION/PLAN: 1. Exacerbation of chronic obstructive pulmonary disease ((COPD). Continue his doxycycline, intravenous Solu-Medrol, nebulized bronchodilator. 2. Constipation. MiraLax and Senokot ordered. 3. Atrial fibrillation. Rate is controlled. 4. He is on Eliquis for deep venous thrombosis (DVT) prophylaxis. 5. Low back pain. No complaints about this today. [facility]
[2020-06-03 14:00] VITALS: BP 132/69
[2020-06-03] MEDS: DULoxetine 30 MG CAP (CYMBALTA) PO SCH (16:53)
[2020-06-03] MEDS ORDERED: methylPREDNISolone 125MG 2ML VIAL IV SCH (21:00)
[2020-06-03] MEDS: diltiaZEM **CD** 180 MG CAP PO SCH (21:57)
[2020-06-03 22:00] VITALS: BP 133/76
[2020-06-03] MEDS: RAMELTEON 8 MG TAB (ROZEREM) PO PRN (23:31)
[2020-06-04] MEDS: IPRATROPIUM 0.02% SOLN 0.5MG 2.5ML NEB INH SCH ×6 (03:27→23:13)
[2020-06-04] MEDS: LEVALBUTEROL 1.25 MG/0.5 ML CONCENTRATE NEB INH SCH ×6 (03:27→23:13)
[2020-06-04 06:00] VITALS: BP 136/72
[2020-06-04 06:50] LABS: BASO % 0.1 % (0.0-1.0); HEMATOCRIT 37.4 % (42.0-52.0); HEMOGLOBIN 11.3 g/dl (13.5-17.5); LYMPH # 0.7 10^3/uL (1.5-5.0); LYMPH % 4.8 % (24.0-44.0); MEAN CORPUSCULAR HEMOGLOBIN 29.7 pg (27.0-33.0); MEAN CORPUSCULAR HGB CONC 30.2 g/dl (32.0-36.5); MEAN CORPUSCULAR VOLUME 98.2 fl (80.0-96.0); MONO # 0.1 10^3/uL (0.0-0.8); MONO % 0.8 % (0.0-5.0); NEUTROPHILS # 13.1 10^3/uL (1.5-8.5); NEUTROPHILS % 92.7 % (36.0-66.0); PLATELET COUNT, AUTOMATED 153 10^3/uL (150-450); RED BLOOD COUNT 3.81 10^6/uL (4.30-6.10); WHITE BLOOD COUNT 14.1 10^3/uL (4.0-10.0)
[2020-06-04 07:10] LABS: BLOOD UREA NITROGEN 20 MG/DL (7-18); CALCIUM LEVEL 9.4 MG/DL (8.8-10.2); CARBON DIOXIDE LEVEL 32 MEQ/L (21-32); CHLORIDE LEVEL 103 MEQ/L (98-107); CREATININE FOR GFR 0.76 MG/DL (0.70-1.30); GLOMERULAR FILTRATION RATE > 60.0 (>49); GLUCOSE, FASTING 166 MG/DL (70-100); POTASSIUM SERUM 4.7 MEQ/L (3.5-5.1); SODIUM LEVEL 140 MEQ/L (136-145)
[2020-06-04] MEDS: FORMOTEROL FUMARATE 20 MCG/2 ML INHALATION SOLUTION (PERFOROMIST) INH SCH ×2 (07:20→20:00)
[2020-06-04] MEDS: BUDESONIDE 0.5 MG/2 ML INHALATION SUSPENSION INH SCH ×2 (07:20→20:02)
--- NOTE | 2020-06-04 07:24 | IPN ---
DATE: 06/03/2020 SUBJECTIVE: Isaiah had some relief of his constipation problem. He is still wheezing quite a bit and coughing up a bit of blood tinged sputum. He is a developing a peristomal hernia around his colostomy, which is causing problems with adherence of the flange. As far as his pulmonary problem, he is still wheezing and indicates typically requires high dose steroids for improvement. PHYSICAL EXAMINATION: Afebrile. Vital signs stable. Saturation is 97%. Actually looks more comfortable. His lungs have wheezes, but better air movement than yesterday. Abdomen is soft, nontender. Small hernia medial to the ostomy. Trace peripheral edema. LABORATORY DATA: White count 28.1 on steroids, hemoglobin 12, platelets 273. Electrolytes unremarkable. Blood sugar was 106 this morning. IMPRESSION: 1. Exacerbation of chronic obstructive pulmonary disease (COPD) from presumed bronchitis. Will increase his Solu-Medrol dose, apparently he responds to higher doses than what is currently getting, continue bronchodilator and empiric antibiotic therapy. Sputum sent for cytology and culture. 2. Hypertensive heart disease. Blood pressure well controlled. 3. Chronic diastolic congestive heart failure (CHF), compensated on examination. 4. Constipation relieved with bowel care from yesterday. 5. Atrial fibrillation, rate controlled on amiodarone for rhythm control and Eliquis for thromboembolic prophylaxis. 6. Benign prostatic hypertrophy (BPH). No urinary obstruction. Continue with tamsulosin. 7. Diabetes. He is on sliding scale insulin with coverage due to his steroid therapy. MTDD
[2020-06-04] MEDS: BENZONATATE 100 MG CAP PO SCH ×3 (08:59→20:41)
[2020-06-04] MEDS: busPIRone 10 MG TAB PO SCH ×2 (09:00→16:17)
[2020-06-04] MEDS: MIRALAX *UNIT DOSE* 17GM PACKET PO SCH ×2 (09:00→20:49)
[2020-06-04] MEDS: APIXABAN 5 MG TAB (ELIQUIS) PO SCH ×2 (09:00→20:41)
[2020-06-04] MEDS: TAMSULOSIN 0.4 MG CAP PO SCH (09:00)
[2020-06-04] MEDS: DOXYCYCLINE HYCLATE 100MG TABLET PO SCH ×2 (09:00→20:41)
[2020-06-04] MEDS: VALSARTAN 80 MG TAB (DIOVAN) PO SCH (09:00)
[2020-06-04] MEDS: SENOKOT S TAB PO SCH ×2 (09:00→20:40)
[2020-06-04] MEDS: OMEPRAZOLE 20 MG CAP PO SCH ×2 (09:00→16:16)
[2020-06-04] MEDS: AMIODARONE 200 MG TAB (PACERONE) PO SCH (09:01)
[2020-06-04] MEDS: predniSONE 20 MG TAB PO SCH ×2 (09:02→20:41)
[2020-06-04 14:00] VITALS: BP 125/60
--- NOTE | 2020-06-04 14:18 | IPN ---
DATE: 06/04/2020 Isaiah is making slow, gradual progress. We lost his IV access yesterday so he did not receive his Solu-Medrol. He is still coughing up significant amounts of sputum and cytology and culture are pending. He does not feel he is ready for discharge yet, though he is making some progress. No fever, no chills. PHYSICAL EXAMINATION: Blood pressure 136/72, oxygen saturation 99% on two liters, temperature 98.5 degrees. General appearance: Alert, conversive, frequent deep cough. HEENT: Unremarkable. Lungs: Decreased breath sounds with expiratory wheezes but improved over yesterday. Heart: Regular rhythm. Abdomen: Soft, nontender. Ostomy left lower quadrant. Parastomal hernia as before. Trace peripheral edema. LABORATORIES: Sodium 140, potassium 4.7, BUN 20, creatinine 0.7, glucose 166, white count 14, hemoglobin 11.3, platelets 153. IMPRESSION: 1. Patient has chronic obstructive pulmonary disease (COPD). He has lost his IV access. We will put him on by mouth steroids, continue bronchodilator and empiric antibiotic therapy. Sputum tests are pending. 2. Parastomal hernia. Needs outpatient followup for this as it is affecting adherence of his flange. 3. Compensated congestive heart failure with preserved ejection fraction. He is compensated on exam. 4. Atrial fibrillation. He is on amiodarone for rate control. Eliquis for thromboembolic prophylaxis without bleeding or side effect. 5. Constipation. This was treated a few days ago and has not recurred. 6. Diabetes. He is on a sliding scale of insulin because of his steroid therapy. His blood sugars have not been significantly elevated. I am going to stop the sliding scale and finger sticks today. Hopefully, he will be able to be discharged in the next day or two. He needs home services which patient and family services can attend to today. ALEXIA
[2020-06-04] MEDS: DULoxetine 30 MG CAP (CYMBALTA) PO SCH (16:16)
[2020-06-04] MEDS: diltiaZEM **CD** 180 MG CAP PO SCH (20:42)
[2020-06-04] MEDS: RAMELTEON 8 MG TAB (ROZEREM) PO PRN (20:49)
[2020-06-04 22:00] VITALS: BP 151/69
[2020-06-05] MEDS: IPRATROPIUM 0.02% SOLN 0.5MG 2.5ML NEB INH SCH ×6 (02:36→23:11)
[2020-06-05] MEDS: LEVALBUTEROL 1.25 MG/0.5 ML CONCENTRATE NEB INH SCH ×6 (02:37→23:11)
[2020-06-05 06:00] VITALS: BP 148/90
[2020-06-05 06:38] LABS: BASO % 0.2 % (0.0-1.0); HEMOGLOBIN 11.2 g/dl (13.5-17.5); LYMPH # 0.8 10^3/uL (1.5-5.0); LYMPH % 5.6 % (24.0-44.0); MEAN CORPUSCULAR HEMOGLOBIN 28.9 pg (27.0-33.0); MEAN CORPUSCULAR HGB CONC 30.3 g/dl (32.0-36.5); MEAN CORPUSCULAR VOLUME 95.6 fl (80.0-96.0); MONO # 0.6 10^3/uL (0.0-0.8); MONO % 3.9 % (0.0-5.0); NEUTROPHILS # 13.2 10^3/uL (1.5-8.5); NEUTROPHILS % 88.2 % (36.0-66.0); PLATELET COUNT, AUTOMATED 247 10^3/uL (150-450); RED BLOOD COUNT 3.87 10^6/uL (4.30-6.10)
[2020-06-05 07:08] LABS: BLOOD UREA NITROGEN 19 MG/DL (7-18); CALCIUM LEVEL 9.4 MG/DL (8.8-10.2); CARBON DIOXIDE LEVEL 35 MEQ/L (21-32); CHLORIDE LEVEL 102 MEQ/L (98-107); CREATININE FOR GFR 0.65 MG/DL (0.70-1.30); GLOMERULAR FILTRATION RATE > 60.0 (>49); GLUCOSE, FASTING 141 MG/DL (70-100); POTASSIUM SERUM 4.3 MEQ/L (3.5-5.1); SODIUM LEVEL 138 MEQ/L (136-145)
[2020-06-05] MEDS: BUDESONIDE 0.5 MG/2 ML INHALATION SUSPENSION INH SCH ×2 (07:35→19:14)
[2020-06-05] MEDS: FORMOTEROL FUMARATE 20 MCG/2 ML INHALATION SOLUTION (PERFOROMIST) INH SCH ×2 (07:35→19:15)
[2020-06-05] MEDS: AMIODARONE 200 MG TAB (PACERONE) PO SCH (09:51)
[2020-06-05] MEDS: VALSARTAN 80 MG TAB (DIOVAN) PO SCH (09:51)
[2020-06-05] MEDS: predniSONE 20 MG TAB PO SCH ×2 (09:52→20:52)
[2020-06-05] MEDS: busPIRone 10 MG TAB PO SCH ×2 (09:52→16:16)
[2020-06-05] MEDS: OMEPRAZOLE 20 MG CAP PO SCH ×2 (09:52→16:16)
[2020-06-05] MEDS: TAMSULOSIN 0.4 MG CAP PO SCH (09:52)
[2020-06-05] MEDS: BENZONATATE 100 MG CAP PO SCH ×3 (09:52→20:53)
[2020-06-05] MEDS: APIXABAN 5 MG TAB (ELIQUIS) PO SCH ×2 (09:52→20:53)
[2020-06-05] MEDS: SENOKOT S TAB PO SCH ×2 (09:52→20:54)
[2020-06-05] MEDS: MIRALAX *UNIT DOSE* 17GM PACKET PO SCH ×2 (09:53→20:54)
[2020-06-05] MEDS: DOXYCYCLINE HYCLATE 100MG TABLET PO SCH ×2 (09:53→20:53)
[2020-06-05 14:00] VITALS: BP 138/71
[2020-06-05] MEDS: DULoxetine 30 MG CAP (CYMBALTA) PO SCH (16:16)
[2020-06-05] MEDS ORDERED: LEVALBUTEROL 1.25 MG/0.5 ML CONCENTRATE NEB NEB PRN (19:00)
--- NOTE | 2020-06-05 19:00 | IPNPDOC ---
Date Seen The patient was seen on 06/05/20. Progress Note SUBJECTIVE: Very wheezy today on BID prednisone, on home amount of O2. Walked with nursing and did well on 2 L NC. At baseline, he does not walk much and is limited to mostly activity within his home (i.e. going back and forth to bathroom, kitchen, etc). Added acapella to regimen as he feels his sputum is thickened, asking to humidify oxygen. Denies increased shortness of breath, cough, fevers, chills, chest pain. OBJECTIVE: PHYSICAL EXAMINATION: VS: Please see below General appearance: Alert, conversive, frequent deep cough. HEENT: Unremarkable. Lungs: Expiratory wheezing bilaterally. No rhonchi or rales Heart: Regular rhythm. S1S2 +., no M/R/G Abdomen: Soft, nontender. Ostomy left lower quadrant. Parastomal hernia as before. EXT: Trace peripheral edema. neuro: CN 2-12 in tact, no focal deficits. LABORATORY/MICROBIOLOGY: Please see below BCx: NG Sputum GS: qUALITY: GOOD, MODERATE WBCS, FEW EPITHELIAL CELLS, MODERATE GRAM POSITIVE COCCI IN PAIRS, CHAINS AND CLUSTERS Sputum Cx: pending Resp panel: Neg ASSESSMENT/PLAN: # COPD exacerbation -Currently saturating well on home amt O2;however, very wheezy and has thickened sputum -Adding humifier to O2, acapella to regimen -Sputum cx pending, other micro above -C/w doxycycline (tailor if sputum cx comes back positive), prednisone BID, levalbuterol ATC, ipratropium ATC, levalbuterol PRN. #Parastomal hernia -Outpatient followup #Compensated congestive heart failure with preserved ejection fraction -Stable -F/u with PCP after discharge #Atrial fibrillation -STable, rate controlled. -C/w amiodarone, eliquis # Diabetes mellitus -Consistent carb diet #GERD -PPI BID #DVT Px -Eliquis DISPOSITION: If breathing improves by AM, plan on discharge home with f/u with PCP. VS, I&O, 24H, Fishbone Vital Signs/I&O Vital Signs Date Time Temp Pulse Resp B/P (MAP) Pulse Ox O2 Delivery O2 Flow Rate FiO2 06/05/20 14:00 96.7 70 13 138/71 (93) 99 Nasal Cannula 2.0 I&O- Last 24 Hours up to 6 AM 06/05/20 06:00 Intake Total 2500 ml Output Total 1925 ml Balance 575 ml Laboratory Data 24H LABS Laboratory Tests 2 06/05/20 05:57: Immature Granulocyte % (Auto) 2.1, Neutrophils (%) (Auto) 88.2H, Lymphocytes (%) (Auto) 5.6L, Monocytes (%) (Auto) 3.9, Eosinophils (%) (Auto) 0.0, Basophils (%) (Auto) 0.2, Neutrophils # (Auto) 13.2H, Lymphocytes # (Auto) 0.8L, Monocytes # (Auto) 0.6, Eosinophils # (Auto) 0.0, Basophils # (Auto) 0.0, Nucleated Red Blood Cells % (auto) 0.0, Anion Gap 1L, Glomerular Filtration Rate > 60.0, Calcium Level 9.4 06/05/20 11:44: Bedside Glucose (Misc Panel) 174H CBC/BMP Laboratory Tests 06/05/20 05:57 Microbiology Microbiology 06/03/20 Gram Stain - Final, Resulted 06/03/20 Sputum Culture, Resulted Pending 05/31/20 Blood Culture - Preliminary, Resulted No Growth after 72 hours. All specime... 05/31/20 Respiratory Virus Panel (PCR) (YOLI) - Final, Complete 05/31/20 Blood Culture - Final, Complete NO GROWTH AFTER 5 DAYS Current Medications Current Medications Medications (Trade) Dose Ordered Sig/Cecille Route PRN Reason Start Time Stop Time Status Last Admin Dose Admin Acetaminophen (Tylenol Tab) 650 mg Q4HP PRN PO PAIN OR FEVER 05/31/20 23:15 05/31/20 23:56 Albuterol/ Ipratropium (Combivent Respimat 100-20mcg) 4 puff Q20M INH 05/31/20 14:30 05/31/20 15:11 DC 05/31/20 17:37 Amiodarone HCl (Pacerone, Cordarone) 200 mg DAILY PO 06/01/20 09:00 06/05/20 09:51 Apixaban (Eliquis) 5 mg BID PO 05/31/20 21:00 06/05/20 09:52 Benzonatate (Tessalon Perles) 100 mg TID PO 05/31/20 21:00 06/05/20 16:16 Budesonide (Pulmicort) 0.5 mg RBID INH 05/31/20 20:00 06/05/20 07:35 Buspirone HCl (Buspar) 10 mg BID@0900,1700 PO 06/01/20 09:00 06/05/20 16:16 Dextrose (Dextrose 50%) 25 ml ASDIRECTED PRN IV SEE LABEL COMMENTS 05/31/20 18:45 06/04/20 08:19 DC Diltiazem HCl (Cardizem Cd) 180 mg QHS PO 05/31/20 21:00 06/04/20 20:42 Doxycycline Hyclate (Vibramycin) 100 mg BID PO 06/01/20 09:00 06/05/20 09:53 Duloxetine HCl (Cymbalta) 60 mg QPM@1700 PO 06/01/20 17:00 06/05/20 16:16 Formoterol Fumarate (Perforomist) 20 mcg RBID INH 05/31/20 20:00 06/05/20 07:35 Glucagon (Glucagon) 1 mg ASDIRECTED PRN SC SEE LABEL COMMENTS 05/31/20 18:45 06/04/20 08:19 DC Glucose (Glucose) 16 GM ASDIRECTED PRN PO SEE LABEL COMMENTS 05/31/20 18:45 06/04/20 08:19 DC Home Med (Med Rec Complete!) ASDIRECTED XX 05/31/20 18:45 05/31/20 18:45 DC Insulin Human Lispro (HumaLOG INSULIN) See Protocol Table AC SC 06/01/20 07:30 06/04/20 08:19 DC 06/03/20 16:53 Insulin Human Lispro (HumaLOG INSULIN) See Protocol Table QHS SC 05/31/20 21:00 06/04/20 08:19 DC Ipratropium [place] (Atrovent 0.02%) 0.5 mg RQ4H INH 05/31/20 20:00 06/05/20 15:42 Levalbuterol HCl (Xopenex Neb) 0.63 mg RQ4H INH 05/31/20 20:00 06/05/20 15:42 Methylprednisolone (SOLU medrol) 40 mg Q6H IV 05/31/20 23:55 06/01/20 07:50 DC 06/01/20 06:32 Methylprednisolone (SOLUmedrol) 60 mg Q24H IV 06/02/20 06:00 06/03/20 08:30 DC 06/03/20 05:41 Methylprednisolone (SOLUmedrol) 125 mg Q12H IV 06/03/20 21:00 06/04/20 08:19 DC 06/03/20 21:57 Omeprazole (PriLOSEC) 40 mg BID@0900,1700 PO 06/01/20 09:00 06/05/20 16:16 Polyethylene Glycol (Miralax) 1 pkt BID PO 06/02/20 09:00 06/05/20 09:53 Prednisone (Deltasone) 40 mg BID PO 06/04/20 09:00 06/05/20 09:52 Ramelteon (Rozerem) 8 mg QHS PRN PO INSOMNIA 06/01/20 23:15 06/04/20 20:49 Senna/Docusate Sodium (Senokot S) 1 tab BID PO 06/02/20 09:00 06/05/20 09:52 Simethicone (Mylicon) 80 mg TIDP PRN PO GAS PAIN 06/01/20 21:00 06/02/20 20:18 Tamsulosin HCl (Flomax) 0.4 mg DAILY PO 06/01/20 09:00 06/05/20 09:52 Tramadol HCl (Ultram) 50 mg Q6HP PRN PO MODERATE PAIN (PS 5-7) 06/01/20 08:00 06/01/20 19:42 Valsartan (Diovan) 160 mg DAILY PO 06/01/20 09:00 06/05/20 09:51 Allergies Coded Allergies: No Known Drug Allergies (Verified Allergy, Unknown, 03/27/19) Mame Matamoros MD Jun 05, 2020 19:00
[2020-06-05] MEDS: diltiaZEM **CD** 180 MG CAP PO SCH (20:52)
[2020-06-05] MEDS: RAMELTEON 8 MG TAB (ROZEREM) PO PRN (20:53)
[2020-06-05 22:00] VITALS: BP 146/75
[2020-06-06] MEDS: IPRATROPIUM 0.02% SOLN 0.5MG 2.5ML NEB INH SCH ×3 (02:56→11:11)
[2020-06-06] MEDS: LEVALBUTEROL 1.25 MG/0.5 ML CONCENTRATE NEB INH SCH ×3 (02:56→11:11)
[2020-06-06 06:00] VITALS: BP 163/82
[2020-06-06 07:00] LABS: BASO % 0.3 % (0.0-1.0); HEMATOCRIT 39.4 % (42.0-52.0); HEMOGLOBIN 11.8 g/dl (13.5-17.5); LYMPH # 0.9 10^3/uL (1.5-5.0); LYMPH % 5.7 % (24.0-44.0); MEAN CORPUSCULAR HEMOGLOBIN 28.7 pg (27.0-33.0); MEAN CORPUSCULAR HGB CONC 29.9 g/dl (32.0-36.5); MEAN CORPUSCULAR VOLUME 95.9 fl (80.0-96.0); MONO # 0.5 10^3/uL (0.0-0.8); MONO % 3.1 % (0.0-5.0); NEUTROPHILS # 13.6 10^3/uL (1.5-8.5); NEUTROPHILS % 88.2 % (36.0-66.0); PLATELET COUNT, AUTOMATED 230 10^3/uL (150-450); RED BLOOD COUNT 4.11 10^6/uL (4.30-6.10); WHITE BLOOD COUNT 15.4 10^3/uL (4.0-10.0)
[2020-06-06 07:15] LABS: BLOOD UREA NITROGEN 22 MG/DL (7-18); CARBON DIOXIDE LEVEL 33 MEQ/L (21-32); CHLORIDE LEVEL 104 MEQ/L (98-107); CREATININE FOR GFR 0.75 MG/DL (0.70-1.30); GLOMERULAR FILTRATION RATE > 60.0 (>49); GLUCOSE, FASTING 158 MG/DL (70-100); POTASSIUM SERUM 4.9 MEQ/L (3.5-5.1); SODIUM LEVEL 138 MEQ/L (136-145)
[2020-06-06] MEDS: BUDESONIDE 0.5 MG/2 ML INHALATION SUSPENSION INH SCH (07:17)
[2020-06-06] MEDS: FORMOTEROL FUMARATE 20 MCG/2 ML INHALATION SOLUTION (PERFOROMIST) INH SCH (07:17)
[2020-06-06 07:34] VITALS: BP 148/73
[2020-06-06] MEDS: MIRALAX *UNIT DOSE* 17GM PACKET PO SCH ×2 (09:00→09:18)
[2020-06-06] MEDS ORDERED: PRED20TA PO (09:08)
[2020-06-06 09:17] VITALS: BP 148/73
[2020-06-06] MEDS: VALSARTAN 80 MG TAB (DIOVAN) PO SCH (09:17)
[2020-06-06] MEDS: APIXABAN 5 MG TAB (ELIQUIS) PO SCH (09:17)
[2020-06-06] MEDS: OMEPRAZOLE 20 MG CAP PO SCH (09:17)
[2020-06-06] MEDS: TAMSULOSIN 0.4 MG CAP PO SCH (09:17)
[2020-06-06] MEDS: BENZONATATE 100 MG CAP PO SCH (09:18)
[2020-06-06] MEDS: predniSONE 20 MG TAB PO SCH (09:18)
[2020-06-06] MEDS: AMIODARONE 200 MG TAB (PACERONE) PO SCH (09:18)
[2020-06-06] MEDS: busPIRone 10 MG TAB PO SCH (09:18)
[2020-06-06] MEDS: DOXYCYCLINE HYCLATE 100MG TABLET PO SCH (09:18)
[2020-06-06] MEDS: SENOKOT S TAB PO SCH (09:19)
[2020-06-06] MEDS ORDERED: LEVO500T3 PO (09:45)
[2020-06-06 11:57] VITALS: BP 157/74
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
== END 2020-06-06 14:40 | disposition home health service (06) | DRG 190 ==
LOC: M ED 13:47 → M ED INP 18:14 → ENRESERV 20:54 → M MS5PR 21:31
PROVIDERS: ADMIT Internal Medicine Nephrology; ATTEND Internal Medicine
DX: J44.1 Chronic obstructive pulmonary disease with (acute) exacerbation (principal); J96.01 Acute respiratory failure with hypoxia; I48.20 Chronic atrial fibrillation, unspecified; I50.32 Chronic diastolic (congestive) heart failure; I11.0 Hypertensive heart disease with heart failure; E11.9 Type 2 diabetes mellitus without complications; K43.5 Parastomal hernia without obstruction or gangrene; K21.9 Gastro-esophageal reflux disease without esophagitis; N40.0 Benign prostatic hyperplasia without lower urinary tract symptoms; Z79.899 Other long term (current) drug therapy; Z79.52 Long term (current) use of systemic steroids; F41.9 Anxiety disorder, unspecified; E83.51 Hypocalcemia; Z79.01 Long term (current) use of anticoagulants; K59.00 Constipation, unspecified

== ENCOUNTER 2020-06-12 14:01 | Inpatient (IN) | payer MEDICARE ==
[~2020-06-12] VITALS: Ht 180.3 cm; Wt 75.4 kg
[~2020-06-12 14:01] MED LIST changes: +DILT1CAP4 PO; +LEVO500T3 PO; +TRAZ-252 PO
--- NOTE | 2020-06-12 14:37 | REPVR ---
PROCEDURE INFORMATION: Exam: CT Cervical Spine Without Contrast Exam date and time: 06/12/2020 2:14 PM Age: 65 years old Clinical indication: Neck pain; Additional info: Fall on thinners TECHNIQUE: Imaging protocol: Computed tomography images of the cervical spine without contrast. Radiation optimization: All CT scans at this facility use at least one of these dose optimization techniques: automated exposure control; mA and/or kV adjustment per patient size (includes targeted exams where dose is matched to clinical indication); or iterative reconstruction. COMPARISON: CT Spine,cervical w/o contrast 03/27/2019 9:39 PM FINDINGS: Bones/joints: No acute fracture. Normal alignment. Discs/Spinal canal/Neural foramina: There is moderate to severe intervertebral disc space loss. There is multilevel facet hypertrophy. Changes changes contribute to multilevel moderate to severe neural foraminal narrowing. Soft tissues: Unremarkable. Lungs: Lung apices are normal. IMPRESSION: No acute fracture. Electronically signed by: Jerri Chavez On 06/12/2020 14:36:56 PM
--- NOTE | 2020-06-12 14:39 | REPVR ---
PROCEDURE INFORMATION: Exam: CT Head Without Contrast Exam date and time: 06/12/2020 2:14 PM Age: 65 years old Clinical indication: Pain; Headache; Additional info: Fall on thinners TECHNIQUE: Imaging protocol: Computed tomography of the head without contrast. Radiation optimization: All CT scans at this facility use at least one of these dose optimization techniques: automated exposure control; mA and/or kV adjustment per patient size (includes targeted exams where dose is matched to clinical indication); or iterative reconstruction. COMPARISON: CT Head without contrast 03/27/2019 9:39 PM FINDINGS: Brain: There is no acute intracranial hemorrhage or mass effect. Mild diffuse volume loss is within the range of normal for patient age. There are small vessel ischemic changes within the periventricular and subcortical white matter, but the normal acharya/white matter delineation is maintained. Cerebral ventricles: No ventriculomegaly. Bones/joints: There are chronic nasal bone fractures. Paranasal sinuses: There is anterior maxillary sinus wall and zygoma fixation hardware bilaterally. Mastoid air cells: Visualized mastoid air cells are well aerated. Soft tissues: Unremarkable. IMPRESSION: No acute intracranial hemorrhage or edema. Electronically signed by: Jerri Chavez On 06/12/2020 14:39:28 PM
--- NOTE | 2020-06-12 14:40 | REP ---
INDICATION: pain after fall COMPARISON: 06/01/2020 TECHNIQUE: Axial noncontrast images from the lung bases to the pubic symphysis with coronal and sagittal reformations. This CT examination was performed using the following dose reduction techniques: Automated exposure control, adjustment of mA and/or kv according to the patient's size, and use of iterative reconstruction technique. FINDINGS: There is a somewhat multilobulated/multiloculated hematoma in the subcutaneous fat of the left gluteal region which measures roughly 9.3 x 5.5 x 9.2 cm maximal diameter (images [id number]). The underlying gluteal musculature appears relatively unaffected and the osseous structures of the pelvis demonstrate age-related osteopenia and degenerative changes without associated acute injury. Liver, spleen, pancreas, gallbladder, bilateral adrenal glands and kidneys are essentially normal for noncontrast evaluation. 2 mm nonobstructing left renal calculus again noted. Evaluation of the enteric system demonstrates prior partial left hemicolectomy and colostomy via the left anterior abdominal wall. There is no evidence for bowel obstruction or acute inflammatory process. Pelvis demonstrates normal bladder and mildly enlarged heterogeneous prostate gland. No ascites. No free air. No adenopathy. Atherosclerotic changes to the aorta noted without aneurysm. Lung bases demonstrate chronic emphysematous changes and scattered scarring. IMPRESSION: 1. Moderate sized hematoma in the subcutaneous fat of the left gluteal region. Underlying musculature and osseous structures are intact and without associated injury. 2. No further acute abdominopelvic pathology appreciated. <Electronically signed by Scott Byers > 06/12/20 [id number]
[2020-06-12 14:56] LABS: BASO % 0.2 % (0.0-1.0); EOS % 0.1 % (0.0-3.0); HEMATOCRIT 29.6 % (42.0-52.0); LYMPH # 0.5 10^3/uL (1.5-5.0); LYMPH % 2.7 % (24.0-44.0); MEAN CORPUSCULAR HEMOGLOBIN 29.8 pg (27.0-33.0); MEAN CORPUSCULAR HGB CONC 30.4 g/dl (32.0-36.5); MONO # 0.3 10^3/uL (0.0-0.8); MONO % 1.5 % (0.0-5.0); NEUTROPHILS # 17.3 10^3/uL (1.5-8.5); NEUTROPHILS % 93.1 % (36.0-66.0); PLATELET COUNT, AUTOMATED 147 10^3/uL (150-450); RED BLOOD COUNT 3.02 10^6/uL (4.30-6.10); WHITE BLOOD COUNT 18.6 10^3/uL (4.0-10.0)
[2020-06-12] MEDS ORDERED: MAPA500T2 PO (15:04)
--- NOTE | 2020-06-12 15:09 | REP ---
INDICATION: wheezing, dyspnea COMPARISON: 05/31/2020 TECHNIQUE: Portable AP view of the chest FINDINGS: The mediastinum and cardiac silhouette are stable and within normal limits for portable technique. The lung carr demonstrate chronic emphysematous changes without acute consolidation, effusion, or pneumothorax. Skeletal structures are intact. IMPRESSION: Chronic stable changes. No acute cardiopulmonary process appreciated. <Electronically signed by Scott Byers > 06/12/20 [id number]
[2020-06-12 15:10] LABS: INR 1.05; PROTHROMBIN TIME 13.9 SECONDS (12.5-14.3)
[2020-06-12 15:11] LABS: PARTIAL THROMBOPLASTIN TIME 26.8 SECONDS (24.2-38.5)
[2020-06-12] MEDS ORDERED: MORPHINE 2 MG/ML 1ML VIAL (J2270) IV ONE ×2 (15:15→17:00)
[2020-06-12 15:18] LABS: ACETAMINOPHEN LEVEL 8.8 UG/ML (10.0-30.0); ALBUMIN 2.9 GM/DL (3.2-5.2); BILIRUBIN,DIRECT 0.2 MG/DL (0.0-0.2); BILIRUBIN,TOTAL 0.5 MG/DL (0.2-1.0); TOTAL PROTEIN 6.2 GM/DL (6.4-8.2)
[2020-06-12 15:21] LABS: ABG BASE EXCESS 3.9 (-2.0-2.0); ABG HCO3 28.4 MEQ/L (22.0-26.0); ABG O2 SATURATION 99.2 % (95.0-99.0); ABG PARTIAL PRESSURE CO2 42.8 mmHg (35.0-45.0); ABG TOTAL CO2 29.7 MEQ/L (23.0-31.0)
--- NOTE | 2020-06-12 15:52 | REP ---
INDICATION: B/l foot and big toe pain after fall COMPARISON: None. TECHNIQUE: AP and frog-lateral views of the left hip FINDINGS: Generalized age-related changes include subtle increased sclerosis to the acetabulum with minimal joint space narrowing. No further overt osteoarthritic or significant degenerative changes are appreciated. No evidence for acute or healed injury. Surrounding soft tissues are normal. IMPRESSION: Mild generalized age-related changes. No acute fracture or dislocation. <Electronically signed by Scott Byers > 06/12/20 [id number]
--- NOTE | 2020-06-12 15:54 | REP ---
INDICATION: B/l foot and big toe pain after fall COMPARISON: None. TECHNIQUE: AP, lateral, bilateral oblique views right and left foot. FINDINGS: There is a nondisplaced fracture involving the right 1st toe proximal phalanx. Remainder of the right foot demonstrates osteopenia and generalized age-related degenerative changes without further acute injury. Left foot demonstrates osteopenia and generalized age-related degenerative changes without acute fracture or dislocation. IMPRESSION: Nondisplaced fracture of the right 1st toe proximal phalanx. <Electronically signed by Scott Byers > 06/12/20 [id number]
[2020-06-12] MEDS ORDERED: BOOSTRIX/ADACEL VACCINE (DIPHTH/PERTUSS/ACELL/TETANUS) 0.5ML SYR IM ONE (17:15)
[2020-06-12] MEDS ORDERED: PRED20TA PO (17:21)
[2020-06-12] MEDS ORDERED: LEVO500T3 PO (17:21)
[2020-06-12] MEDS ORDERED: NITROGLYCERIN 0.4 MG SUBL TABLET SL PRN (17:45)
[2020-06-12] MEDS ORDERED: GLUCAGON INJ 1MG VIAL SC PRN (17:45)
[2020-06-12] MEDS ORDERED: DEXTROSE 50% 50 ML SYRINGE IV PRN (17:45)
[2020-06-12] MEDS ORDERED: GLUCOSE 4GM CHEW TABLET PO PRN (17:45)
[2020-06-12] MEDS ORDERED: IPRATROPIUM 0.5MG/ALBUTEROL 2.5MG INH SOL UD 3ML (DUONEB) NEB PRN (18:00)
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
[2020-06-12 19:52] LABS: HEMATOCRIT 26.7 % (42.0-52.0); HEMOGLOBIN 8.1 g/dl (13.5-17.5)
[2020-06-12] MEDS: IPRATROPIUM 0.5MG/ALBUTEROL 2.5MG INH SOL UD 3ML (DUONEB) NEB SCH (19:55)
[2020-06-12 20:17] LABS: AMYLASE 83 U/L (25-115); LIPASE 337 U/L (73-393)
[2020-06-12] MEDS ORDERED: traZODone 50 MG TAB PO PRN (21:00)
[2020-06-12] MEDS: MORPHINE 2 MG/ML 1ML VIAL (J2270) IV PRN (21:26)
[2020-06-12 21:50] VITALS: BP 164/67
--- NOTE | 2020-06-12 22:07 | ECGEPIP ---
[facility] - ED Test Date: 2020-06-12 Pat Name: CARLEEN JARRETT Department: Room: - Gender: Male Catheterization Laboratory Technician: tanmay pineda : 1955 Requested By: JOSE WICK Order Number: [id number] Reading MD: Tk Aguilar Measurements Intervals [place] Rate: 93 P: 34 AR: 151 QRS: 28 QRSD: 110 T: 68 QT: 350 QTc: 436 Interpretive Statements SINUS RHYTHM Nonspecific ST-T wave abnormalities Similar to tracing done 05-31-20 Electronically Signed on 06-12-2020 22:07:31 EST by Tk Aguilar
[2020-06-12] MEDS: HumaLOG INSULIN (NovoLOG) PER UNIT SC SCH (22:41)
[2020-06-12] MEDS: busPIRone 10 MG TAB PO SCH (22:50)
[2020-06-12] MEDS: OMEPRAZOLE 20 MG CAP PO SCH (22:50)
[2020-06-12] MEDS: DULoxetine 30 MG CAP (CYMBALTA) PO SCH (22:50)
[2020-06-12] MEDS: ACETAMINOPHEN TAB 650MG DOSE (2X325MG) PO PRN (22:52)
[2020-06-12] MEDS: diltiaZEM **CD** 180 MG CAP PO SCH (22:53)
[2020-06-13] VITALS (11 sets, daily range): BP systolic 144–170; BP diastolic 70–93
[2020-06-13] MEDS: ADVAIR HFA 230/21MCG INHALER INH SCH ×3 (01:09→19:42)
[2020-06-13] MEDS: IPRATROPIUM 0.5MG/ALBUTEROL 2.5MG INH SOL UD 3ML (DUONEB) NEB SCH ×4 (02:00→19:41)
[2020-06-13] MEDS: MORPHINE 2 MG/ML 1ML VIAL (J2270) IV PRN ×4 (05:54→21:15)
[2020-06-13] MEDS: ACETAMINOPHEN TAB 650MG DOSE (2X325MG) PO PRN (05:55)
[2020-06-13 06:41] LABS: BASO # 0.1 10^3/uL (0.0-0.2); BASO % 0.3 % (0.0-1.0); EOS # 0.2 10^3/uL (0.0-0.5); EOS % 0.9 % (0.0-3.0); HEMATOCRIT 33.5 % (42.0-52.0); LYMPH # 2.7 10^3/uL (1.5-5.0); LYMPH % 16.1 % (24.0-44.0); MEAN CORPUSCULAR HEMOGLOBIN 29.5 pg (27.0-33.0); MEAN CORPUSCULAR HGB CONC 31.3 g/dl (32.0-36.5); MEAN CORPUSCULAR VOLUME 94.1 fl (80.0-96.0); MONO # 0.9 10^3/uL (0.0-0.8); MONO % 5.5 % (0.0-5.0); NEUTROPHILS # 12.4 10^3/uL (1.5-8.5); NEUTROPHILS % 74.6 % (36.0-66.0); PLATELET COUNT, AUTOMATED 126 10^3/uL (150-450); RED BLOOD COUNT 3.56 10^6/uL (4.30-6.10); WHITE BLOOD COUNT 16.6 10^3/uL (4.0-10.0)
[2020-06-13 06:45] LABS: HEMOGLOBIN 10.5 g/dl (13.5-17.5)
[2020-06-13 07:02] LABS: BLOOD UREA NITROGEN 18 MG/DL (7-18); CALCIUM LEVEL 9.1 MG/DL (8.8-10.2); CARBON DIOXIDE LEVEL 31 MEQ/L (21-32); CHLORIDE LEVEL 104 MEQ/L (98-107); CREATININE FOR GFR 0.65 MG/DL (0.70-1.30); GLOMERULAR FILTRATION RATE > 60.0 (>49); GLUCOSE, FASTING 91 MG/DL (70-100); MAGNESIUM LEVEL 1.9 MG/DL (1.8-2.4); POTASSIUM SERUM 4.1 MEQ/L (3.5-5.1); SODIUM LEVEL 141 MEQ/L (136-145)
[2020-06-13] MEDS: HumaLOG INSULIN (NovoLOG) PER UNIT SC SCH ×4 (07:30→21:00)
[2020-06-13] MEDS ORDERED: predniSONE 20 MG TAB PO SCH (09:00)
[2020-06-13] MEDS ORDERED: FLUBLOK(EGG FREE)(QUAD)INFLUENZA VACC 0.5ML SYRINGE 18YRS & OLDER IM ONE (09:00)
[2020-06-13] MEDS: TAMSULOSIN 0.4 MG CAP PO SCH (09:09)
[2020-06-13] MEDS: OMEPRAZOLE 20 MG CAP PO SCH ×2 (09:09→21:14)
[2020-06-13] MEDS: busPIRone 10 MG TAB PO SCH ×2 (09:10→21:14)
[2020-06-13] MEDS: AMIODARONE 200 MG TAB (PACERONE) PO SCH (09:10)
[2020-06-13] MEDS: VALSARTAN 80 MG TAB (DIOVAN) PO SCH (09:10)
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
[2020-06-13] MEDS ORDERED: MOM 30ML SUSPENSION UDC PO PRN (11:15)
[2020-06-13] MEDS ORDERED: predniSONE 20 MG TAB PO ONE (11:15)
[2020-06-13] MEDS ORDERED: MIRALAX *UNIT DOSE* 17GM PACKET PO PRN (11:15)
[2020-06-13 11:24] LABS: HEMATOCRIT 33.9 % (42.0-52.0); HEMOGLOBIN 10.7 g/dl (13.5-17.5)
[2020-06-13] MEDS: SENOKOT S TAB PO PRN (12:11)
--- NOTE | 2020-06-13 13:43 | CR ---
CONSULTATION REASON FOR CONSULTATION: Right great toe proximal phalanx fracture. HISTORY OF PRESENT ILLNESS: He is a 65-year-old male who took a fall about three our four days and he was seen by his home care nurse and found to have a large flank hematoma on the left side and he complained of pain and soreness about both feet but the right toe is particularly showing significant redness and swelling. He is on an Eliquis blood thinner and so he presented to the hospital and was evaluated by the Hospitalist and found to have a large hematoma and thought it best for him to be treated with admission and observation to monitor him for potential blood loss given the size of his hematoma. It was noted on the radiographs of the right foot, however that there is a fracture of the proximal phalanx of his great toe and I was asked to see him for this injury. He complains only of isolated pain in the left flank and the right great toe. MEDICAL HISTORY: He has a past medical history of: 1. Colon cancer. 2. Severe COPD on long-term steroid with osteopenia as a result. 3. Atrial fibrillation. 4. Congestive heart failure. 5. Hypertension. 6. Diabetes. 7. Chronic hepatitis C. 8. History of alcohol abuse. 9. History of having colostomy with persistent colostomy bag from his colon cancer and diverticulitis. 10.He does have lung nodules of uncertain cause. SURGICAL HISTORY: 1. Sigmoid colectomy and colostomy in 2019. By history, he told me it was lung cancer but by the chart it says it was for diverticulitis. 2. History of right femoral neck fracture. 3. History of hernia repair. 4. History of small bowel obstruction and surgical repair. 5. History of ventral hernia repair. 6. History of right pneumothorax. 7. Appendectomy. 8. Feeding tube placement. 9. He has also had left hip surgery by __ in the past for some type of a benign tumor, the conditioning requiring a bone graft. MEDICATIONS: 1. Amiodarone. 2. Eliquis. 3. Buspirone. 4. Diltiazem. 5. Duloxetine. 6. Fluticasone. 7. Ipratropium. 8. Levofloxacin. 9. Metformin. 10.Omeprazole. 11.Prednisone. 12.Tamsulosin. 13.Valsartan. ALLERGIES TO MEDICATIONS: None. SOCIAL HISTORY: He is retired maintenance, he used to work at the hospital for many years. PHYSICAL EXAMINATION: GENERAL: On examination he is an alert, pleasant male. VITAL SIGNS: Blood pressure 166/78, pulse 68, respirations 20, O2 sat is 100% on room air. ABDOMEN: His left flank had a large ecchymotic area with some mild tenderness. There is no fluctuance noted. No fluid wave noted, just a large area of hematoma about his left flank and left hip area. EXTREMITIES: His right great toe is normally aligned but had significant mild ecchymosis and some minor swelling and it was tender to touch along the great toe but there was no deformity. He had good capillary refills in his toes. RADIOGRAPHS: Radiographs of both feet were reviewed but the left foot did not show any acute fracture, the right foot showed a nondisplaced proximal phalanx fracture of the great toe. IMPRESSION: Right great toe proximal phalanx fracture. I recommend conservative treatment. In the Emergency Room, I applied some cast padding between the first and second toes and used a light Coban wrap to lewis-tape the great toe to the second toe and then applied a Gilberto postoperative shoe for him. PLAN: Weightbearing as pain allows with heel walking and crutches or walker, and follow-up x-ray in 10-14 days to follow fracture until healing. cc: [facility]
[2020-06-13 17:48] LABS: HEMATOCRIT 38.1 % (42.0-52.0); HEMOGLOBIN 12.2 g/dl (13.5-17.5)
[2020-06-13] MEDS: diltiaZEM **CD** 180 MG CAP PO SCH (21:14)
[2020-06-13] MEDS: DULoxetine 30 MG CAP (CYMBALTA) PO SCH (21:14)
[2020-06-14] MEDS ORDERED: PERCOCET 5MG/325MG TAB PO SCH
[2020-06-14] MEDS: IPRATROPIUM 0.5MG/ALBUTEROL 2.5MG INH SOL UD 3ML (DUONEB) NEB SCH ×3 (01:59→14:45)
[2020-06-14] MEDS: SENOKOT S TAB PO PRN ×2 (02:28→08:59)
[2020-06-14] MEDS: MORPHINE 2 MG/ML 1ML VIAL (J2270) IV PRN ×2 (02:29→08:55)
[2020-06-14 06:00] VITALS: BP 137/80
[2020-06-14 06:22] LABS: BLOOD UREA NITROGEN 19 MG/DL (7-18); CALCIUM LEVEL 8.7 MG/DL (8.8-10.2); CARBON DIOXIDE LEVEL 31 MEQ/L (21-32); CHLORIDE LEVEL 103 MEQ/L (98-107); GLOMERULAR FILTRATION RATE > 60.0 (>49); GLUCOSE, FASTING 92 MG/DL (70-100); MAGNESIUM LEVEL 1.9 MG/DL (1.8-2.4); SODIUM LEVEL 140 MEQ/L (136-145)
[2020-06-14 06:25] LABS: BASO % 0.1 % (0.0-1.0); EOS # 0.1 10^3/uL (0.0-0.5); EOS % 0.5 % (0.0-3.0); HEMATOCRIT 34.7 % (42.0-52.0); HEMOGLOBIN 10.8 g/dl (13.5-17.5); LYMPH % 9.5 % (24.0-44.0); MEAN CORPUSCULAR HEMOGLOBIN 29.5 pg (27.0-33.0); MEAN CORPUSCULAR HGB CONC 31.1 g/dl (32.0-36.5); MEAN CORPUSCULAR VOLUME 94.8 fl (80.0-96.0); MONO # 0.9 10^3/uL (0.0-0.8); MONO % 4.2 % (0.0-5.0); NEUTROPHILS # 17.6 10^3/uL (1.5-8.5); NEUTROPHILS % 83.1 % (36.0-66.0); PLATELET COUNT, AUTOMATED 142 10^3/uL (150-450); RED BLOOD COUNT 3.66 10^6/uL (4.30-6.10); WHITE BLOOD COUNT 21.2 10^3/uL (4.0-10.0)
[2020-06-14] MEDS: ADVAIR HFA 230/21MCG INHALER INH SCH (07:12)
[2020-06-14] MEDS ORDERED: PERCOCET 5MG/325MG TAB PO PRN (08:15)
[2020-06-14] MEDS: busPIRone 10 MG TAB PO SCH (08:50)
[2020-06-14] MEDS: TAMSULOSIN 0.4 MG CAP PO SCH (08:52)
[2020-06-14] MEDS: OMEPRAZOLE 20 MG CAP PO SCH (08:52)
[2020-06-14 08:55] VITALS: BP 138/68
[2020-06-14] MEDS: VALSARTAN 80 MG TAB (DIOVAN) PO SCH (08:55)
[2020-06-14] MEDS: AMIODARONE 200 MG TAB (PACERONE) PO SCH (08:55)
[2020-06-14] MEDS ORDERED: predniSONE 20 MG TAB PO SCH ×2 (09:00)
[2020-06-14] MEDS: HumaLOG INSULIN (NovoLOG) PER UNIT SC SCH ×2 (09:00→12:00)
[2020-06-14] MEDS ORDERED: PERCOCET PO (10:56)
[2020-06-14] MEDS ORDERED: PRED10TA2 PO (10:56)
[2020-06-14] MEDS ORDERED: ELIQ5TAB PO (10:59)
[2020-06-14 11:27] LABS: HEMATOCRIT 37.3 % (42.0-52.0); HEMOGLOBIN 11.8 g/dl (13.5-17.5)
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
[2020-06-14 13:43] VITALS: BP 159/73
== END 2020-06-14 15:27 | disposition home health service (06) | DRG 605 ==
LOC: M ED 14:01 → EDBD 14:01 → M ED INP 17:32 → ENRESERV 18:29 → M MSPAV 22:00
PROVIDERS: ADMIT Internal Medicine; ATTEND Internal Medicine
PROC: 30233N1 Transfusion of Nonautologous Red Blood Cells into Peripheral Vein, Percutaneous Approach (ICD-10-PCS; principal; 2020-06-12)
DX: S30.0XXA Contusion of lower back and pelvis, initial encounter (principal); I48.20 Chronic atrial fibrillation, unspecified; I50.32 Chronic diastolic (congestive) heart failure; J96.11 Chronic respiratory failure with hypoxia; J44.9 Chronic obstructive pulmonary disease, unspecified; S92.414A Nondisplaced fracture of proximal phalanx of right great toe, initial encounter for closed fracture; J45.909 Unspecified asthma, uncomplicated; I27.20 Pulmonary hypertension, unspecified; I11.0 Hypertensive heart disease with heart failure; E11.9 Type 2 diabetes mellitus without complications; N40.0 Benign prostatic hyperplasia without lower urinary tract symptoms; F41.9 Anxiety disorder, unspecified; B18.2 Chronic viral hepatitis C; R29.6 Repeated falls; K21.9 Gastro-esophageal reflux disease without esophagitis; Z93.3 Colostomy status; M51.36 Other intervertebral disc degeneration, lumbar region; R91.8 Other nonspecific abnormal finding of lung field; Z90.49 Acquired absence of other specified parts of digestive tract; Z87.891 Personal history of nicotine dependence; W18.09XA Striking against other object with subsequent fall, initial encounter; Y92.009 Unspecified place in unspecified non-institutional (private) residence as the place of occurrence of the external cause; Y99.8 Other external cause status; Y93.89 Activity, other specified; Z87.820 Personal history of traumatic brain injury; Z79.01 Long term (current) use of anticoagulants; Z79.84 Long term (current) use of oral hypoglycemic drugs; Z79.899 Other long term (current) drug therapy; Z20.828 Contact with and (suspected) exposure to other viral communicable diseases

== ENCOUNTER → 2021-03-16 | Outpatient (CLI) | payer MEDICARE ==
[~2021-03-16] MED LIST changes: +MAPA500T2 PO; +OMEP40CA4 PO; -OMEP40CA97 PO; +PERCOCET PO
[2021-03-16 12:43] LABS: HEMATOCRIT 45.6 % (42.0-52.0); HEMOGLOBIN 14.8 g/dl (13.5-17.5); MEAN CORPUSCULAR HEMOGLOBIN 30.4 pg (27.0-33.0); MEAN CORPUSCULAR HGB CONC 32.5 g/dl (32.0-36.5); MEAN CORPUSCULAR VOLUME 93.6 fl (80.0-96.0); PLATELET COUNT, AUTOMATED 215 10^3/uL (150-450); RED BLOOD COUNT 4.87 10^6/uL (4.30-6.10); WHITE BLOOD COUNT 10.9 10^3/uL (4.0-10.0)
--- NOTE | 2021-03-16 12:47 | REP ---
INDICATION: TUMOR COMPARISON: 06/12/2020 TECHNIQUE: PA and lateral. FINDINGS: The mediastinum and cardiac silhouette are normal. The lung carr demonstrate chronic appearing changes without acute consolidation, effusion, or pneumothorax. The skeletal structures demonstrate old healed rib fractures. And there is a compression fracture at T8 which is of indeterminate age but likely chronic and progressive when compared with chest CT dated 05/31/2020. IMPRESSION: Chronic changes as described above. No obvious acute consolidation or effusion. <Electronically signed by Scott Byers > 03/16/21 [id number]
[2021-03-16 13:09] LABS: HEMOGLOBIN A1c 5.3 %
[2021-03-16 13:22] LABS: ALT/SGPT 15 U/L (12-78); BILIRUBIN,TOTAL 0.3 MG/DL (0.2-1.0); BLOOD UREA NITROGEN 16 MG/DL (7-18); CALCIUM LEVEL 10.4 MG/DL (8.8-10.2); CARBON DIOXIDE LEVEL 29 MEQ/L (21-32); CHLORIDE LEVEL 109 MEQ/L (98-107); CREATININE FOR GFR 0.68 MG/DL (0.70-1.30); GLOMERULAR FILTRATION RATE > 60.0 (>49); GLUCOSE, FASTING 80 MG/DL (70-100); POTASSIUM SERUM 4.5 MEQ/L (3.5-5.1); SODIUM LEVEL 140 MEQ/L (136-145); TRIGLYCERIDES LEVEL 155 MG/DL (<150)
[2021-03-16 13:23] LABS: ALBUMIN 3.5 GM/DL (3.2-5.2); CHOLESTEROL LEVEL 162 MG/DL (<200); FREE T4 0.73 NG/DL (0.76-1.46); HDL CHOLESTEROL 45 MG/DL (>40); IRON (FE) 85 UG/DL (65-175); LDL CHOLESTEROL 86 MG/DL (<100); NON-HDL-C 117 MG/DL; TOTAL PROTEIN 7.3 GM/DL (6.4-8.2)
== END ==
LOC: M LAB 12:05
PROVIDERS: ATTEND Internal Medicine Cardiovascular Disease
DX: D50.9 Iron deficiency anemia, unspecified (principal); R82.998 Other abnormal findings in urine; E78.00 Pure hypercholesterolemia, unspecified; E11.9 Type 2 diabetes mellitus without complications; E03.9 Hypothyroidism, unspecified

== ENCOUNTER 2021-04-27 12:19 | Emergency (ER) | payer MEDICARE ==
[~2021-04-27] VITALS: Ht 180.3 cm; Wt 81.8 kg
[2021-04-27 12:19] VITALS: BP 134/83
== END 2021-04-27 14:25 | disposition left against medical advice (07) ==
LOC: M ED 12:19
DX: Z53.29 Procedure and treatment not carried out because of patient's decision for other reasons (principal)

== ENCOUNTER 2021-08-13 16:00 | Emergency (ER) | payer MEDICARE ==
[~2021-08-13 16:00] MED LIST changes: -AMIO200T3 PO; +AMIO200T49 PO; -LEVO500T3 PO; +LEVO500T4 PO
[2021-08-13] MEDS ORDERED: PROPARACAINE 0.5% OPHTH SOL 15ML OS ONE (18:00)
[2021-08-13] MEDS ORDERED: FLUORESCEIN OPHTH 1 MG STRIP OS ONE (18:00)
[2021-08-13] MEDS ORDERED: OFLOXACIN 0.3 % (OCUFLOX) OPTH SOL 5ML OS SCH (18:40)
[2021-08-13] MEDS ORDERED: OFLO3OPSO OS (19:09)
[2021-08-13] MEDS ORDERED: ACETAMINOPHEN 325 MG TAB PO ONE (19:35)
[2021-08-13 19:52] VITALS: BP 128/82
[2021-08-13] MEDS ORDERED: OFLOXACIN 0.3 % (OCUFLOX) OPTH SOL 5ML OS ONE (20:00)
== END 2021-08-13 19:53 | disposition home or self-care (01) ==
LOC: M ED 16:00
DX: H16.002 Unspecified corneal ulcer, left eye (principal); H20.9 Unspecified iridocyclitis; E11.9 Type 2 diabetes mellitus without complications; J45.909 Unspecified asthma, uncomplicated; N40.0 Benign prostatic hyperplasia without lower urinary tract symptoms; Z79.899 Other long term (current) drug therapy; Z79.84 Long term (current) use of oral hypoglycemic drugs; Z79.51 Long term (current) use of inhaled steroids; Z79.01 Long term (current) use of anticoagulants; F17.210 Nicotine dependence, cigarettes, uncomplicated

== ENCOUNTER 2021-12-17 14:26 | Emergency (ER) | payer MEDICARE ==
[~2021-12-17] VITALS: Ht 180.3 cm; Wt 80.3 kg
[~2021-12-17 14:26] MED LIST changes: +OFLO3OPSO OS
[2021-12-17 14:39] VITALS: BP 170/80
== END 2021-12-17 19:45 | disposition left against medical advice (07) ==
LOC: M ED 14:26
DX: Z53.29 Procedure and treatment not carried out because of patient's decision for other reasons (principal)

== ENCOUNTER 2022-03-04 09:14 | Inpatient (IN) | payer MEDICARE, OTHER ==
[~2022-03-04] VITALS: Ht 180.3 cm; Wt 81.5 kg
[~2022-03-04 09:14] MED LIST changes: +LEVO1TAB39 PO; -LEVO500T4 PO
[2022-03-04] MEDS ORDERED: methylPREDNISolone 125MG 2ML VIAL IV ONE (09:45)
[2022-03-04] MEDS: COMBIVENT RESPIMAT 100-20MCG INHALER 4GM INH SCH ×2 (09:58→10:04)
[2022-03-04 10:23] LABS: BASO # 0.1 10^3/uL (0.0-0.2); BASO % 0.5 % (0.0-1.0); EOS # 0.1 10^3/uL (0.0-0.5); EOS % 0.3 % (0.0-3.0); HEMATOCRIT 45.3 % (42.0-52.0); HEMOGLOBIN 14.4 g/dl (13.5-17.5); LYMPH # 2.6 10^3/uL (1.5-5.0); LYMPH % 14.6 % (24.0-44.0); MEAN CORPUSCULAR HEMOGLOBIN 29.7 pg (27.0-33.0); MEAN CORPUSCULAR HGB CONC 31.8 g/dl (32.0-36.5); MEAN CORPUSCULAR VOLUME 93.4 fl (80.0-96.0); MONO % 9.8 % (2.0-8.0); NEUTROPHILS # 13.1 10^3/uL (1.5-8.5); NEUTROPHILS % 74.1 % (36.0-66.0); PLATELET COUNT, AUTOMATED 205 10^3/uL (150-450); RED BLOOD COUNT 4.85 10^6/uL (4.30-6.10); WHITE BLOOD COUNT 17.6 10^3/uL (4.0-10.0)
[2022-03-04 10:54] LABS: MONO # 1.7 10^3/uL (0.0-0.8)
[2022-03-04] MEDS ORDERED: cefTRIAXone SOD 1 GM in D5W MINI-BAG PLUS 50 ML IV ONE (10:55)
[2022-03-04 10:58] LABS: CK-MB VALUE MASS < 1.0 NG/ML (<3.6); CPK CREATINE PHOSPHOKINASE 34 U/L (39-308); MB/CK RELATIVE INDEX 2.94 (< OR =4)
[2022-03-04 11:06] LABS: ALBUMIN 3.3 GM/DL (3.2-5.2); ALT/SGPT 16 U/L (12-78); BILIRUBIN,DIRECT 0.5 MG/DL (0.0-0.2); BILIRUBIN,TOTAL 1.1 MG/DL (0.2-1.0); BLOOD UREA NITROGEN 17 MG/DL (7-18); CALCIUM LEVEL 10.2 MG/DL (8.8-10.2); CARBON DIOXIDE LEVEL 23 MEQ/L (21-32); CHLORIDE LEVEL 108 MEQ/L (98-107); CREATININE FOR GFR 0.78 MG/DL (0.70-1.30); GLOMERULAR FILTRATION RATE > 60.0 (>49); GLUCOSE, FASTING 109 MG/DL (70-100); LIPASE 99 U/L (73-393); POTASSIUM SERUM 3.8 MEQ/L (3.5-5.1); SODIUM LEVEL 138 MEQ/L (136-145); TOTAL PROTEIN 6.8 GM/DL (6.4-8.2)
[2022-03-04] MEDS ORDERED: AZITHROMYCIN 250MG TABLET PO ONE (11:40)
[2022-03-04] MEDS ORDERED: IPRATROPIUM 0.5MG/ALBUTEROL 2.5MG INH SOL UD 3ML (DUONEB) NEB ONE (11:45)
[2022-03-04 11:52] LABS: CK-MB VALUE MASS < 1.0 NG/ML (<3.6); CPK CREATINE PHOSPHOKINASE 97 U/L (39-308); MB/CK RELATIVE INDEX 1.03 (< OR =4)
[2022-03-04 13:30] LABS: MB/CK RELATIVE INDEX 2.86 (< OR =4)
[2022-03-04] MEDS ORDERED: GLUCAGON INJ 1MG VIAL SC PRN (14:45)
[2022-03-04] MEDS ORDERED: DEXTROSE 50% 50 ML SYRINGE IV PRN (14:45)
[2022-03-04] MEDS ORDERED: GLUCOSE 4GM CHEW TABLET PO PRN (14:45)
[2022-03-04] MEDS ORDERED: HOME MED LIST COMPLETE! XX SCH (15:35)
[2022-03-04] MEDS: LEVALBUTEROL 1.25 MG/0.5 ML CONCENTRATE NEB NEB SCH ×3 (16:00→21:58)
[2022-03-04] MEDS ORDERED: ISOVUE-370 76% 100ML VIAL As Ordered ONE (16:01)
[2022-03-04] MEDS: DOXYCYCLINE HYCLATE 100 MG in D5W MINI-BAG PLUS 100 ML IV SCH (16:46)
[2022-03-04 18:00] VITALS: BP 138/70
[2022-03-04] MEDS: INSULIN LISPRO (NovoLOG) PER UNIT SC SCH ×2 (18:12→20:34)
[2022-03-04] MEDS: SYMBICORT 160/4.5MCG INHALER 6GM INH SCH ×2 (20:00→22:05)
[2022-03-04 22:00] VITALS: BP 123/62; O2SAT 97
[2022-03-04] MEDS: ACETAMINOPHEN TAB 650MG DOSE (2X325MG) PO PRN (22:35)
[2022-03-05] VITALS: BP 124/62
[2022-03-05] MEDS: LEVALBUTEROL 1.25 MG/0.5 ML CONCENTRATE NEB NEB SCH ×6 (03:16→23:10)
[2022-03-05] MEDS: DOXYCYCLINE HYCLATE 100 MG in D5W MINI-BAG PLUS 100 ML IV SCH ×2 (04:13→16:44)
[2022-03-05 06:00] VITALS: BP 124/59
[2022-03-05 06:19] LABS: BASO % 0.1 % (0.0-1.0); HEMATOCRIT 41.9 % (42.0-52.0); HEMOGLOBIN 13.5 g/dl (13.5-17.5); LYMPH # 1.1 10^3/uL (1.5-5.0); LYMPH % 5.2 % (24.0-44.0); MEAN CORPUSCULAR HEMOGLOBIN 30.2 pg (27.0-33.0); MEAN CORPUSCULAR HGB CONC 32.2 g/dl (32.0-36.5); MEAN CORPUSCULAR VOLUME 93.7 fl (80.0-96.0); MONO # 0.9 10^3/uL (0.0-0.8); NEUTROPHILS # 19.4 10^3/uL (1.5-8.5); PLATELET COUNT, AUTOMATED 215 10^3/uL (150-450); RED BLOOD COUNT 4.47 10^6/uL (4.30-6.10); WHITE BLOOD COUNT 21.6 10^3/uL (4.0-10.0)
[2022-03-05 06:51] LABS: BLOOD UREA NITROGEN 30 MG/DL (7-18); CALCIUM LEVEL 10.7 MG/DL (8.8-10.2); CARBON DIOXIDE LEVEL 23 MEQ/L (21-32); CHLORIDE LEVEL 106 MEQ/L (98-107); CREATININE FOR GFR 0.92 MG/DL (0.70-1.30); GLOMERULAR FILTRATION RATE > 60.0 (>49); GLUCOSE, FASTING 243 MG/DL (70-100); SODIUM LEVEL 136 MEQ/L (136-145)
[2022-03-05] MEDS: SYMBICORT 160/4.5MCG INHALER 6GM INH SCH ×2 (07:19→19:46)
[2022-03-05] MEDS: predniSONE 20 MG TAB PO SCH (08:11)
[2022-03-05] MEDS: PANTOPRAZOLE 40MG TAB (PROTONIX) PO SCH (08:11)
[2022-03-05] MEDS: INSULIN LISPRO (NovoLOG) PER UNIT SC SCH ×4 (08:12→20:20)
[2022-03-05] MEDS ORDERED: IPRATROPIUM 0.5MG/ALBUTEROL 2.5MG INH SOL UD 3ML (DUONEB) NEB PRN (09:50)
[2022-03-05 10:00] VITALS: BP 137/66
[2022-03-05] MEDS: GASTROGRAFIN SOLUTION 30ML PO SCH ×2 (10:14→10:54)
[2022-03-05] MEDS: ENOXAPARIN 40MG/0.4ML SYRINGE (J1650 PER 10MG) SC SCH (10:14)
[2022-03-05 11:44] LABS: HEMOGLOBIN A1c 5.1 %
[2022-03-05] MEDS: cefTRIAXone SOD 1 GM in D5W MINI-BAG PLUS 50 ML IV SCH (11:56)
[2022-03-05 14:00] VITALS: BP 128/62
[2022-03-05] MEDS: ACETAMINOPHEN TAB 650MG DOSE (2X325MG) PO PRN (16:45)
[2022-03-05 22:00] VITALS: BP 152/81
[2022-03-06] MEDS: LEVALBUTEROL 1.25 MG/0.5 ML CONCENTRATE NEB NEB SCH ×7 (03:04→23:19)
[2022-03-06] MEDS: DOXYCYCLINE HYCLATE 100 MG in D5W MINI-BAG PLUS 100 ML IV SCH ×2 (03:27→17:04)
[2022-03-06 05:43] VITALS: BP 127/54
[2022-03-06 06:12] LABS: BASO % 0.2 % (0.0-1.0); EOS % 0.3 % (0.0-3.0); HEMATOCRIT 40.1 % (42.0-52.0); LYMPH # 2.2 10^3/uL (1.5-5.0); MEAN CORPUSCULAR HEMOGLOBIN 30.5 pg (27.0-33.0); MEAN CORPUSCULAR HGB CONC 32.4 g/dl (32.0-36.5); MEAN CORPUSCULAR VOLUME 94.1 fl (80.0-96.0); MONO % 6.1 % (2.0-8.0); NEUTROPHILS # 12.6 10^3/uL (1.5-8.5); NEUTROPHILS % 78.8 % (36.0-66.0); PLATELET COUNT, AUTOMATED 210 10^3/uL (150-450); RED BLOOD COUNT 4.26 10^6/uL (4.30-6.10); WHITE BLOOD COUNT 15.9 10^3/uL (4.0-10.0)
[2022-03-06 06:44] LABS: BLOOD UREA NITROGEN 24 MG/DL (7-18); CALCIUM LEVEL 10.4 MG/DL (8.8-10.2); CARBON DIOXIDE LEVEL 27 MEQ/L (21-32); CHLORIDE LEVEL 110 MEQ/L (98-107); CREATININE FOR GFR 0.74 MG/DL (0.70-1.30); GLOMERULAR FILTRATION RATE > 60.0 (>49); GLUCOSE, FASTING 123 MG/DL (70-100); SODIUM LEVEL 142 MEQ/L (136-145)
[2022-03-06] MEDS: SYMBICORT 160/4.5MCG INHALER 6GM INH SCH ×2 (07:45→19:45)
[2022-03-06] MEDS ORDERED: PNEUMOCOCCAL VACCINE 0.5ML SYRINGE (PNEUMOVAX 23) IM.IMMUN ONE (09:00)
[2022-03-06] MEDS: INSULIN LISPRO (NovoLOG) PER UNIT SC SCH ×3 (09:52→17:05)
[2022-03-06] MEDS: PANTOPRAZOLE 40MG TAB (PROTONIX) PO SCH (09:52)
[2022-03-06] MEDS: predniSONE 20 MG TAB PO SCH (09:52)
[2022-03-06] MEDS: ENOXAPARIN 40MG/0.4ML SYRINGE (J1650 PER 10MG) SC SCH (09:56)
[2022-03-06] MEDS: cefTRIAXone SOD 1 GM in D5W MINI-BAG PLUS 50 ML IV SCH (12:45)
[2022-03-06] MEDS ORDERED: dexameTHASONE 4 MG/ML 1ML VIAL (J1100 PER 1MG) IV ONE (13:00)
[2022-03-06 14:00] VITALS: BP 142/66
[2022-03-06 17:07] LABS: MYCOPLASMA PNEUMONIAE IgG 421 U/mL (0-99); MYCOPLASMA PNEUMONIAE IgM <770 U/mL (0-769)
[2022-03-06] MEDS ORDERED: LevoFLOXacin 750 MG TABLET PO ONE (18:20)
[2022-03-06] MEDS ORDERED: dexameTHASONE 4 MG/ML 1ML VIAL (J1100 PER 1MG) IV SCH (21:00)
[2022-03-06 22:00] VITALS: BP 179/83
[2022-03-07] MEDS: LEVALBUTEROL 1.25 MG/0.5 ML CONCENTRATE NEB NEB SCH ×3 (03:11→11:18)
[2022-03-07 05:41] VITALS: BP 161/82
[2022-03-07 06:37] LABS: BASO % 0.2 % (0.0-1.0); HEMATOCRIT 43.6 % (42.0-52.0); HEMOGLOBIN 13.8 g/dl (13.5-17.5); LYMPH # 1.3 10^3/uL (1.5-5.0); LYMPH % 10.6 % (24.0-44.0); MEAN CORPUSCULAR HEMOGLOBIN 29.8 pg (27.0-33.0); MEAN CORPUSCULAR HGB CONC 31.7 g/dl (32.0-36.5); MEAN CORPUSCULAR VOLUME 94.2 fl (80.0-96.0); MONO # 0.7 10^3/uL (0.0-0.8); MONO % 5.4 % (2.0-8.0); NEUTROPHILS # 10.3 10^3/uL (1.5-8.5); NEUTROPHILS % 82.5 % (36.0-66.0); PLATELET COUNT, AUTOMATED 218 10^3/uL (150-450); RED BLOOD COUNT 4.63 10^6/uL (4.30-6.10); WHITE BLOOD COUNT 12.5 10^3/uL (4.0-10.0)
[2022-03-07 07:11] LABS: BLOOD UREA NITROGEN 19 MG/DL (7-18); CALCIUM LEVEL 10.6 MG/DL (8.8-10.2); CARBON DIOXIDE LEVEL 27 MEQ/L (21-32); CHLORIDE LEVEL 108 MEQ/L (98-107); CREATININE FOR GFR 0.72 MG/DL (0.70-1.30); GLOMERULAR FILTRATION RATE > 60.0 (>49); GLUCOSE, FASTING 154 MG/DL (70-100); POTASSIUM SERUM 4.2 MEQ/L (3.5-5.1); SODIUM LEVEL 138 MEQ/L (136-145)
[2022-03-07] MEDS: SYMBICORT 160/4.5MCG INHALER 6GM INH SCH (07:32)
[2022-03-07] MEDS ORDERED: PROAAER10 INH (07:56)
[2022-03-07] MEDS ORDERED: LEVO1TAB40 PO (07:56)
[2022-03-07] MEDS ORDERED: PRED10TA2 PO (07:56)
[2022-03-07] MEDS ORDERED: IPRA0.00 INH (07:56)
[2022-03-07] MEDS ORDERED: AMOX875T2 PO (07:56)
[2022-03-07] MEDS ORDERED: PRED20TA PO (07:56)
[2022-03-07] MEDS ORDERED: PANT40TA29 PO (07:56)
[2022-03-07] MEDS: PANTOPRAZOLE 40MG TAB (PROTONIX) PO SCH (08:30)
[2022-03-07] MEDS: ENOXAPARIN 40MG/0.4ML SYRINGE (J1650 PER 10MG) SC SCH (08:31)
[2022-03-07] MEDS ORDERED: predniSONE 20 MG TAB PO SCH (09:00)
[2022-03-07 15:10] LABS: CHLAMYDIA PNEUMONIAE IgG <1:16 (Neg:<1:16); CHLAMYDIA PNEUMONIAE IgM <1:10 (Neg:<1:10)
[2022-03-07 15:10] LABS: BODY FLUID CULTURE Not indicated. (.); LEGIONELLA ANTIGEN URINE Negative (Negative); ORGANISM ID Not indicated. (.); SPECIMEN SOURCE Urine (.); URINE STREP PNEUMONIAE ANTIGEN Negative (Negative)
[2022-03-07] MEDS ORDERED: LevoFLOXacin 750 MG TABLET PO SCH (18:00)
== END 2022-03-07 12:27 | disposition home health service (06) | DRG 190 ==
LOC: M ED 09:14 → EDBD 09:14 → M ED INP 14:36 → ENRESERV 15:40 → M MSPAV 17:29
PROVIDERS: ADMIT Internal Medicine Nephrology; ATTEND Internal Medicine Nephrology
PROC: BW24YZZ Computerized Tomography (CT Scan) of Chest and Abdomen using Other Contrast (ICD-10-PCS; principal; 2022-03-04)
DX: J44.1 Chronic obstructive pulmonary disease with (acute) exacerbation (principal); J18.9 Pneumonia, unspecified organism; I50.32 Chronic diastolic (congestive) heart failure; J96.10 Chronic respiratory failure, unspecified whether with hypoxia or hypercapnia; J44.0 Chronic obstructive pulmonary disease with (acute) lower respiratory infection; I48.0 Paroxysmal atrial fibrillation; E11.9 Type 2 diabetes mellitus without complications; I11.0 Hypertensive heart disease with heart failure; K21.9 Gastro-esophageal reflux disease without esophagitis; N40.0 Benign prostatic hyperplasia without lower urinary tract symptoms; F32.A Depression, unspecified; F41.9 Anxiety disorder, unspecified; Z20.822 Contact with and (suspected) exposure to COVID-19; Z79.899 Other long term (current) drug therapy; Z79.51 Long term (current) use of inhaled steroids; R91.1 Solitary pulmonary nodule; Z86.73 Personal history of transient ischemic attack (TIA), and cerebral infarction without residual deficits; M81.0 Age-related osteoporosis without current pathological fracture; Z99.81 Dependence on supplemental oxygen; Z66 Do not resuscitate

== ENCOUNTER 2022-03-12 10:18 | Inpatient (IN) | payer MEDICARE ==
[~2022-03-12] VITALS: Ht 180.3 cm; Wt 95.0 kg
[~2022-03-12 10:18] MED LIST changes: +AMOX875T2 PO; +LEVO1TAB40 PO; +PANT40TA29 PO
[2022-03-12 11:48] LABS: BASO # 0.1 10^3/uL (0.0-0.2); BASO % 0.3 % (0.0-1.0); EOS # 0.1 10^3/uL (0.0-0.5); EOS % 0.4 % (0.0-3.0); HEMATOCRIT 44.6 % (42.0-52.0); HEMOGLOBIN 14.1 g/dl (13.5-17.5); LYMPH # 3.1 10^3/uL (1.5-5.0); LYMPH % 13.1 % (24.0-44.0); MEAN CORPUSCULAR HEMOGLOBIN 29.6 pg (27.0-33.0); MEAN CORPUSCULAR HGB CONC 31.6 g/dl (32.0-36.5); MEAN CORPUSCULAR VOLUME 93.7 fl (80.0-96.0); MONO # 1.1 10^3/uL (0.0-0.8); MONO % 4.8 % (2.0-8.0); NEUTROPHILS # 18.1 10^3/uL (1.5-8.5); NEUTROPHILS % 76.8 % (36.0-66.0); PLATELET COUNT, AUTOMATED 224 10^3/uL (150-450); RED BLOOD COUNT 4.76 10^6/uL (4.30-6.10); WHITE BLOOD COUNT 23.5 10^3/uL (4.0-10.0)
[2022-03-12 12:15] LABS: RSV AMPLIFICATION NEGATIVE (NEGATIVE)
[2022-03-12 12:23] LABS: ALBUMIN 3.2 GM/DL (3.2-5.2); ALT/SGPT 22 U/L (12-78); BILIRUBIN,DIRECT 0.1 MG/DL (0.0-0.2); BILIRUBIN,TOTAL 0.3 MG/DL (0.2-1.0); BLOOD UREA NITROGEN 13 MG/DL (7-18); CALCIUM LEVEL 10.2 MG/DL (8.8-10.2); CARBON DIOXIDE LEVEL 32 MEQ/L (21-32); CHLORIDE LEVEL 102 MEQ/L (98-107); CK-MB VALUE MASS 4.4 NG/ML (<3.6); CREATININE FOR GFR 0.66 MG/DL (0.70-1.30); GLOMERULAR FILTRATION RATE > 60.0 (>49); GLUCOSE, FASTING 89 MG/DL (70-100); LIPASE 73 U/L (73-393); MB/CK RELATIVE INDEX 10.48 (< OR =4); POTASSIUM SERUM 4.1 MEQ/L (3.5-5.1); SODIUM LEVEL 141 MEQ/L (136-145); TOTAL PROTEIN 6.3 GM/DL (6.4-8.2)
[2022-03-12] MEDS ORDERED: MORPHINE 4 MG/ML 1ML VIAL/SYRINGE IV ONE ×2 (13:10→17:10)
[2022-03-12 13:42] LABS: CK-MB VALUE MASS 3.8 NG/ML (<3.6); MB/CK RELATIVE INDEX 2.66 (< OR =4)
[2022-03-12] MEDS ORDERED: COMBIVENT RESPIMAT 100-20MCG INHALER 4GM INH ONE (14:00)
[2022-03-12] MEDS ORDERED: PANT-23 PO (15:02)
[2022-03-12] MEDS ORDERED: LEVO1TAB40 PO (15:02)
[2022-03-12] MEDS ORDERED: AMOX875T2 PO (15:02)
[2022-03-12] MEDS ORDERED: IPRA0.00 INH (15:02)
[2022-03-12] MEDS ORDERED: PRED10TA2 PO (15:02)
[2022-03-12] MEDS ORDERED: PROAAER10 INH (15:02)
[2022-03-12] MEDS ORDERED: HOME MED LIST COMPLETE! XX SCH (15:05)
[2022-03-12] MEDS ORDERED: DEXTROSE 50% 50 ML SYRINGE IV PRN (18:55)
[2022-03-12] MEDS ORDERED: GLUCAGON INJ 1MG VIAL SC PRN (18:55)
[2022-03-12] MEDS ORDERED: hydrALAZINE 20MG/ML 1ML VIAL (J0360 PER 20MG) IV PRN (18:55)
[2022-03-12] MEDS ORDERED: GLUCOSE 4GM CHEW TABLET PO PRN (18:55)
[2022-03-12] MEDS ORDERED: VANCOMYCIN HCL 750 MG, VIAL MATE ADAPTER 1 EACH in NS 250 ML IV SCH (19:15)
[2022-03-12] MEDS: MORPHINE 2 MG/ML 1ML VIAL IV PRN (19:25)
[2022-03-12] MEDS: NS 1,000 ML IV SCH (19:44)
[2022-03-12] MEDS ORDERED: hydrALAZINE 20MG/ML 1ML VIAL (J0360 PER 20MG) IV STA (19:45)
[2022-03-12] MEDS: CEFEPIME HCL 2 GM in D5W MINI-BAG PLUS 50 ML IV SCH (20:00)
[2022-03-12] MEDS: IPRATROPIUM 0.5MG/ALBUTEROL 2.5MG INH SOL UD 3ML (DUONEB) NEB PRN (20:20)
[2022-03-12 20:42] VITALS: BP 238/110
[2022-03-12] MEDS ORDERED: VANCOMYCIN HCL 1,000 MG, VIAL MATE ADAPTER 1 EACH in D5W 250 ML IV ONE (21:00)
[2022-03-12] MEDS ORDERED: INSULIN LISPRO (NovoLOG) PER UNIT SC SCH (21:00)
[2022-03-12] MEDS ORDERED: RAMELTEON 8 MG TAB (ROZEREM) PO ONE (21:45)
[2022-03-12] MEDS ORDERED: VANCOMYCIN HCL 750 MG, VIAL MATE ADAPTER 1 EACH in D5W 250 ML IV ONE (22:00)
[2022-03-12] MEDS ORDERED: MORPHINE 2 MG/ML 1ML VIAL IV ONE (22:00)
[2022-03-13] VITALS (7 sets, daily range): BP systolic 144–163; BP diastolic 68–80
[2022-03-13] MEDS: IPRATROPIUM 0.5MG/ALBUTEROL 2.5MG INH SOL UD 3ML (DUONEB) NEB PRN ×3 (04:22→18:29)
[2022-03-13] MEDS: MORPHINE 2 MG/ML 1ML VIAL IV PRN ×4 (04:22→20:12)
[2022-03-13] MEDS: NS 1,000 ML IV SCH (07:01)
[2022-03-13 07:22] LABS: HEMATOCRIT 49.8 % (42.0-52.0); HEMOGLOBIN 15.5 g/dl (13.5-17.5); MEAN CORPUSCULAR HEMOGLOBIN 29.7 pg (27.0-33.0); MEAN CORPUSCULAR HGB CONC 31.1 g/dl (32.0-36.5); MEAN CORPUSCULAR VOLUME 95.4 fl (80.0-96.0); PLATELET COUNT, AUTOMATED 209 10^3/uL (150-450); RED BLOOD COUNT 5.22 10^6/uL (4.30-6.10); WHITE BLOOD COUNT 19.1 10^3/uL (4.0-10.0)
[2022-03-13] MEDS ORDERED: INSULIN LISPRO (NovoLOG) PER UNIT SC SCH (07:30)
[2022-03-13 07:43] LABS: HEMOGLOBIN A1c 5.3 %
[2022-03-13 08:02] LABS: ALT/SGPT 18 U/L (12-78); BILIRUBIN,TOTAL 0.7 MG/DL (0.2-1.0); BLOOD UREA NITROGEN 12 MG/DL (7-18); CALCIUM LEVEL 9.7 MG/DL (8.8-10.2); CARBON DIOXIDE LEVEL 34 MEQ/L (21-32); CHLORIDE LEVEL 102 MEQ/L (98-107); CREATININE FOR GFR 0.57 MG/DL (0.70-1.30); GLOMERULAR FILTRATION RATE > 60.0 (>49); GLUCOSE, FASTING 93 MG/DL (70-100); MAGNESIUM LEVEL 2.2 MG/DL (1.8-2.4); POTASSIUM SERUM 3.8 MEQ/L (3.5-5.1); SODIUM LEVEL 138 MEQ/L (136-145)
[2022-03-13] MEDS: PANTOPRAZOLE 40MG VIAL IV SCH (08:36)
[2022-03-13] MEDS: CEFEPIME HCL 2 GM in D5W MINI-BAG PLUS 50 ML IV SCH ×2 (08:36→19:37)
[2022-03-13] MEDS: VANCOMYCIN HCL 750 MG, VIAL MATE ADAPTER 1 EACH in D5W 250 ML IV SCH ×2 (08:36→20:11)
[2022-03-13] MEDS ORDERED: MOM 30ML SUSPENSION UDC PO ONE (10:00)
[2022-03-13] MEDS: VANCOMYCIN HCL 500 MG in D5W MINI-BAG PLUS 100 ML IV SCH ×2 (10:09→21:57)
[2022-03-13] MEDS: INSULIN LISPRO (NovoLOG) PER UNIT SC SCH ×2 (12:17→17:34)
[2022-03-13] MEDS: D5W/0.9% SODIUM CHLORIDE 1,000 ML IV SCH (12:24)
[2022-03-13] MEDS: ENOXAPARIN 40MG/0.4ML SYRINGE (J1650 PER 10MG) SC SCH (12:27)
[2022-03-14] VITALS: BP 149/71
[2022-03-14] MEDS: INSULIN LISPRO (NovoLOG) PER UNIT SC SCH ×5 (00:16→23:37)
[2022-03-14] MEDS: D5W/0.9% SODIUM CHLORIDE 1,000 ML IV SCH ×2 (00:16→14:59)
[2022-03-14] MEDS: MORPHINE 2 MG/ML 1ML VIAL IV PRN ×5 (00:17→23:42)
[2022-03-14] MEDS: IPRATROPIUM 0.5MG/ALBUTEROL 2.5MG INH SOL UD 3ML (DUONEB) NEB PRN ×3 (00:22→20:06)
[2022-03-14 04:00] VITALS: BP 147/67
[2022-03-14 06:10] LABS: HEMATOCRIT 46.6 % (42.0-52.0); HEMOGLOBIN 14.9 g/dl (13.5-17.5); MEAN CORPUSCULAR HEMOGLOBIN 30.1 pg (27.0-33.0); MEAN CORPUSCULAR VOLUME 94.1 fl (80.0-96.0); PLATELET COUNT, AUTOMATED 168 10^3/uL (150-450); RED BLOOD COUNT 4.95 10^6/uL (4.30-6.10); WHITE BLOOD COUNT 14.2 10^3/uL (4.0-10.0)
[2022-03-14 06:41] LABS: ALBUMIN 2.9 GM/DL (3.2-5.2); ALT/SGPT 15 U/L (12-78); BILIRUBIN,TOTAL 0.9 MG/DL (0.2-1.0); BLOOD UREA NITROGEN 9 MG/DL (7-18); CALCIUM LEVEL 9.5 MG/DL (8.8-10.2); CARBON DIOXIDE LEVEL 31 MEQ/L (21-32); CHLORIDE LEVEL 101 MEQ/L (98-107); CREATININE FOR GFR 0.66 MG/DL (0.70-1.30); GLOMERULAR FILTRATION RATE > 60.0 (>49); GLUCOSE, FASTING 106 MG/DL (70-100); MAGNESIUM LEVEL 2.2 MG/DL (1.8-2.4); POTASSIUM SERUM 4.4 MEQ/L (3.5-5.1); SODIUM LEVEL 136 MEQ/L (136-145)
[2022-03-14] MEDS: VANCOMYCIN HCL 750 MG, VIAL MATE ADAPTER 1 EACH in D5W 250 ML IV SCH ×2 (09:12→21:00)
[2022-03-14] MEDS: MIRALAX *UNIT DOSE* 17GM PACKET PO SCH (09:13)
[2022-03-14] MEDS: PANTOPRAZOLE 40MG VIAL IV SCH (09:13)
[2022-03-14] MEDS: ENOXAPARIN 40MG/0.4ML SYRINGE (J1650 PER 10MG) SC SCH (09:13)
[2022-03-14] MEDS: CEFEPIME HCL 2 GM in D5W MINI-BAG PLUS 50 ML IV SCH ×2 (09:19→19:41)
[2022-03-14] MEDS: VANCOMYCIN HCL 500 MG in D5W MINI-BAG PLUS 100 ML IV SCH ×2 (10:52→22:16)
[2022-03-14 14:00] VITALS: BP 143/80
[2022-03-14 19:36] VITALS: BP 141/96
[2022-03-15] MEDS: D5W/0.9% SODIUM CHLORIDE 1,000 ML IV SCH ×3 (01:15→20:58)
[2022-03-15] MEDS: MORPHINE 2 MG/ML 1ML VIAL IV PRN ×3 (03:44→13:10)
[2022-03-15 06:00] VITALS: BP 151/84
[2022-03-15] MEDS: INSULIN LISPRO (NovoLOG) PER UNIT SC SCH ×4 (06:00→23:53)
[2022-03-15 08:17] LABS: ALBUMIN 2.9 GM/DL (3.2-5.2); ALT/SGPT 18 U/L (12-78); BILIRUBIN,TOTAL 1.1 MG/DL (0.2-1.0); BLOOD UREA NITROGEN 10 MG/DL (7-18); CALCIUM LEVEL 10.2 MG/DL (8.8-10.2); CARBON DIOXIDE LEVEL 25 MEQ/L (21-32); CHLORIDE LEVEL 104 MEQ/L (98-107); CREATININE FOR GFR 0.61 MG/DL (0.70-1.30); GLOMERULAR FILTRATION RATE > 60.0 (>49); GLUCOSE, FASTING 91 MG/DL (70-100); MAGNESIUM LEVEL 2.3 MG/DL (1.8-2.4); POTASSIUM SERUM 4.7 MEQ/L (3.5-5.1); SODIUM LEVEL 135 MEQ/L (136-145); TOTAL PROTEIN 6.2 GM/DL (6.4-8.2)
[2022-03-15] MEDS: CEFEPIME HCL 2 GM in D5W MINI-BAG PLUS 50 ML IV SCH ×2 (08:41→19:28)
[2022-03-15] MEDS: PANTOPRAZOLE 40MG VIAL IV SCH (08:41)
[2022-03-15] MEDS: MIRALAX *UNIT DOSE* 17GM PACKET PO SCH (08:42)
[2022-03-15] MEDS: ENOXAPARIN 40MG/0.4ML SYRINGE (J1650 PER 10MG) SC SCH (08:42)
[2022-03-15 09:45] LABS: BASO # 0.1 10^3/uL (0.0-0.2); BASO % 0.6 % (0.0-1.0); EOS # 0.2 10^3/uL (0.0-0.5); EOS % 1.5 % (0.0-3.0); HEMATOCRIT 49.6 % (42.0-52.0); HEMOGLOBIN 15.8 g/dl (13.5-17.5); LYMPH # 1.7 10^3/uL (1.5-5.0); LYMPH % 12.5 % (24.0-44.0); MEAN CORPUSCULAR HEMOGLOBIN 30.1 pg (27.0-33.0); MEAN CORPUSCULAR HGB CONC 31.9 g/dl (32.0-36.5); MEAN CORPUSCULAR VOLUME 94.5 fl (80.0-96.0); MONO # 0.9 10^3/uL (0.0-0.8); MONO % 6.6 % (2.0-8.0); NEUTROPHILS # 10.7 10^3/uL (1.5-8.5); NEUTROPHILS % 76.9 % (36.0-66.0); PLATELET COUNT, AUTOMATED 186 10^3/uL (150-450); RED BLOOD COUNT 5.25 10^6/uL (4.30-6.10); WHITE BLOOD COUNT 13.9 10^3/uL (4.0-10.0)
[2022-03-15] MEDS: VANCOMYCIN HCL 750 MG, VIAL MATE ADAPTER 1 EACH in D5W 250 ML IV SCH ×2 (10:21→20:55)
[2022-03-15] MEDS: VANCOMYCIN HCL 500 MG in D5W MINI-BAG PLUS 100 ML IV SCH ×3 (12:02→22:21)
[2022-03-15 14:00] VITALS: BP 167/96
[2022-03-15] MEDS ORDERED: **hydrALAZINE** 10 MG TAB PO PRN (18:50)
[2022-03-15 19:37] VITALS: BP 147/78
[2022-03-16] MEDS: IPRATROPIUM 0.5MG/ALBUTEROL 2.5MG INH SOL UD 3ML (DUONEB) NEB PRN (03:15)
[2022-03-16 05:40] VITALS: BP 117/65
[2022-03-16] MEDS: INSULIN LISPRO (NovoLOG) PER UNIT SC SCH (06:00)
[2022-03-16 07:18] LABS: HEMATOCRIT 46.1 % (42.0-52.0); HEMOGLOBIN 14.9 g/dl (13.5-17.5); MEAN CORPUSCULAR HEMOGLOBIN 29.5 pg (27.0-33.0); MEAN CORPUSCULAR HGB CONC 32.3 g/dl (32.0-36.5); MEAN CORPUSCULAR VOLUME 91.3 fl (80.0-96.0); PLATELET COUNT, AUTOMATED 174 10^3/uL (150-450); RED BLOOD COUNT 5.05 10^6/uL (4.30-6.10); WHITE BLOOD COUNT 11.2 10^3/uL (4.0-10.0)
[2022-03-16 07:52] LABS: ALBUMIN 3.1 GM/DL (3.2-5.2); ALT/SGPT 20 U/L (12-78); BILIRUBIN,TOTAL 0.6 MG/DL (0.2-1.0); BLOOD UREA NITROGEN 8 MG/DL (7-18); CALCIUM LEVEL 10.1 MG/DL (8.8-10.2); CARBON DIOXIDE LEVEL 25 MEQ/L (21-32); CHLORIDE LEVEL 105 MEQ/L (98-107); CREATININE FOR GFR 0.68 MG/DL (0.70-1.30); GLOMERULAR FILTRATION RATE > 60.0 (>49); GLUCOSE, FASTING 107 MG/DL (70-100); MAGNESIUM LEVEL 2.3 MG/DL (1.8-2.4); POTASSIUM SERUM 4.1 MEQ/L (3.5-5.1); SODIUM LEVEL 135 MEQ/L (136-145); TOTAL PROTEIN 6.3 GM/DL (6.4-8.2)
[2022-03-16] MEDS: MIRALAX *UNIT DOSE* 17GM PACKET PO SCH (09:00)
[2022-03-16] MEDS: ENOXAPARIN 40MG/0.4ML SYRINGE (J1650 PER 10MG) SC SCH (09:03)
[2022-03-16] MEDS: PANTOPRAZOLE 40MG VIAL IV SCH (09:03)
[2022-03-16] MEDS: CEFEPIME HCL 2 GM in D5W MINI-BAG PLUS 50 ML IV SCH (09:03)
[2022-03-16] MEDS: VANCOMYCIN HCL 750 MG, VIAL MATE ADAPTER 1 EACH in D5W 250 ML IV SCH (09:48)
== END 2022-03-16 11:39 | disposition left against medical advice (07) | DRG 178 ==
LOC: M ED 10:18 → EDBD 10:18 → M ED INP 18:41 → M PCU 21:06 → M MSPAV 03-14 13:13
PROVIDERS: ADMIT Family Medicine; ATTEND Family Medicine
DX: J15.6 Pneumonia due to other Gram-negative bacteria (principal); J44.0 Chronic obstructive pulmonary disease with (acute) lower respiratory infection; I48.20 Chronic atrial fibrillation, unspecified; I50.32 Chronic diastolic (congestive) heart failure; J44.1 Chronic obstructive pulmonary disease with (acute) exacerbation; K56.50 Intestinal adhesions [bands], unspecified as to partial versus complete obstruction; K56.7 Ileus, unspecified; E11.9 Type 2 diabetes mellitus without complications; I27.20 Pulmonary hypertension, unspecified; I11.0 Hypertensive heart disease with heart failure; F41.9 Anxiety disorder, unspecified; N40.0 Benign prostatic hyperplasia without lower urinary tract symptoms; B18.2 Chronic viral hepatitis C; K21.9 Gastro-esophageal reflux disease without esophagitis; Z90.49 Acquired absence of other specified parts of digestive tract; Z20.822 Contact with and (suspected) exposure to COVID-19; Z79.2 Long term (current) use of antibiotics; Z79.52 Long term (current) use of systemic steroids; Z79.899 Other long term (current) drug therapy; I16.0 Hypertensive urgency; Z93.3 Colostomy status; J15.212 Pneumonia due to Methicillin resistant Staphylococcus aureus; Z66 Do not resuscitate

== ENCOUNTER → 2022-09-26 | Outpatient (CLI) | payer MEDICARE ==
[~2022-09-26] MED LIST changes: +ALBU8.5H INH; +PANT-23 PO
== END ==
LOC: M LABSMTC 10:49
PROVIDERS: ATTEND Anesthesiology
DX: Z01.812 Encounter for preprocedural laboratory examination (principal); Z20.822 Contact with and (suspected) exposure to COVID-19

== ENCOUNTER → 2022-12-02 | Outpatient (CLI) | payer MEDICARE ==
[~2022-12-02] MED LIST changes: +DILT180C39 PO; -DILT1CAP4 PO; -DILT1CAP9 PO; +DILT360C7 PO; -OFLO3OPSO OS; +OFLO5DRO OS
[2022-12-02 12:12] VITALS: BP 162/79
[2022-12-02 17:14] LABS: SOURCE, BODY FLUID GLUCOSE PLEURAL
[2022-12-02 17:16] LABS: LDH, BODY FLUID 58 U/L (NOT ESTABLISHED); SOURCE, BODY FLUID LDH PLEURAL
[2022-12-02 17:17] LABS: SOURCE, BODY FLUID TOT PROTEIN PLEURAL; TOTAL PROTEIN, BODY FLUID < 2.0 G/DL (NOT ESTABLISHED)
== END ==
LOC: M IRPRO 09:30
PROVIDERS: ATTEND Internal Medicine Cardiovascular Disease
DX: J90 Pleural effusion, not elsewhere classified (principal)